=== PATIENT | male | born 1955 | race Caucasian/White ===

== ENCOUNTER 2018-04-14 02:36 | Inpatient (IN) ==
[2018-04-14] MEDS ORDERED: *HR* Ketamine 500 MG/5 ML MDV IVP ONE (02:44)
[2018-04-14] MEDS ORDERED: *HR* LORazepam 2 MG/ML VIAL IVP ONE ×2 (02:57→14:53)
--- NOTE | 2018-04-14 03:02 | Emergency Department Note ---
Disposition Clinical Impression: Trachea displaced Altered mental status Qualifiers: Altered mental status type: unspecified Qualified Code(s): R41.82 - Altered mental status, unspecified Acute respiratory failure Qualifiers: Respiratory failure complication: hypoxia Qualified Code(s): J96.01 - Acute respiratory failure with hypoxia Sepsis Qualifiers: Sepsis type: sepsis due to unspecified organism Qualified Code(s): A41.9 - Sepsis, unspecified organism Disposition: Admitted As Inpatient Condition: Fair Time of Disposition: 06:32 SOB HPI - General Chief Complaint: ED Shortness of Breath/Dyspnea Stated Complaint: JILL Time Seen by Provider: 04/14/18 02:37 Source: EMS, other Limitations: altered mental status Nursing Notes Reviewed: Yes Vital Signs Reviewed: Yes - History of Present Illness Patient presents to the ED via EMS and was seen and evaluated immediately upon arrival. Patient is at [facility] and is chronically trached for laryngeal cancer and has also had another extensive head and neck surgeries and is followed at [facility]. Apparently today about 15 minutes prior to arrival. The patient was up, walking towards the desk and they checked on him a few minutes later and he had pulled his trach out and was cyanotic. Initial sats from EMS were 30%. They state that [facility] had actually placed a straw in the patient's stoma and he was breathing on his own. EMS placed a shortened 6- 0 ET tube into the stoma and the patient did pink up with oxygen sats in the 90s while being bagged. Unknown any preceding events or preceding symptoms. - Related Data Previous Rx's Medication Instructions Recorded Sulfamethoxazole/Trimeth Oral 20 ml PO BID 7 Days #280 oral.susp 01/31/18 [Bactrim Susp 400-80mg/10mL] Allergies Allergy/AdvReac Type Severity Reaction Status Date / Time ampicillin [From Unasyn] Allergy See Verified 01/31/18 00:27 Comments sulbactam [From Unasyn] Allergy See Verified 01/31/18 00:27 Comments Limitations: ROS unobtainable due to patients medical condition Past Medical History - Past Medical History Source: old records reviewed Medical history: Reports: arthritis, cancer, COPD, CVA, diabetes, GERD, hyperlipidemia, hypertension Psychiatric history: Reports: anxiety, depression - Social History Smoking Status: Former smoker Smokeless Tobacco Status: No Alcohol use: Reports: none Drug use: Reports: none Physical Exam - General Limitations: altered mental status General appearance: obtunded, in distress - Eye Eye exam: Present: PERRL - ENT ENT exam: other (6-[address] with some bloody secretions, the tracheostomy stoma is edematous and erythematous, apparent cuff leak) - Chest Chest inspection: Present: other (Extensive scar tissue to the chest wall) - Respiratory Respiratory exam: Present: respiratory distress, other (Diminished breath sounds bilaterally). Absent: normal lung sounds bilaterally - Cardiovascular Cardiovascular exam: Present: tachycardia - Abdominal Exam Abdominal exam: Present: soft - Neurological Exam Neurological exam: Present: other (Patient's obtunded, not following commands). Absent: alert, oriented X3 - Skin Skin exam: Present: warm, dry, intact, normal color Course Course Narrative: patient presenting after pulling trach. Was obtunded. We did give him 10 mg of etomidate for initial sedation, which did facilitate placement of a trach. We had good color change and breath sounds bilaterally. The stoma was patent with no bleeding. We subsequently gave him 4 mg of Ativan and we will order a Precedex drip for sedation. His mental status prior to arrival was unknown but reportedly was walking up to the nurse's station. Upon arrival here, he was not following commands, eyes were rolling in the back of his head and was not making any purposeful movements but was moving all extremities. We will check labs, chest x-ray, CT head. We will place on full ventilatory support Vital Signs Temperature 0 F L 04/14/18 02:39 Pulse Rate 144 04/14/18 02:39 Respiratory Rate 32 04/14/18 02:39 Blood Pressure 189/104 04/14/18 02:39 O2 Sat by Pulse Oximetry 91 04/14/18 02:39 Temperature 0 F L 04/14/18 02:39 Pulse Rate 65 04/14/18 06:29 Respiratory Rate 18 04/14/18 06:03 Blood Pressure 96/67 04/14/18 06:29 O2 Sat by Pulse Oximetry 98 04/14/18 06:29 Oxygen Delivery Oxygen Delivery Ventilator Shortness of Breath/Dyspnea - Medical Records Medical records reviewed: Yes I reviewed the patient's medical records. - Lab Data Lab results reviewed: Yes I reviewed the patient's lab results. Result diagrams: 04/14/18 02:43 04/14/18 02:43 Lab Results 04/14/18 04/14/18 04/14/18 Range/Units 02:43 02:43 02:43 WBC 16.6 H (4.3-11.1) K/mcL RBC 4.00 L (4.19-5.50) M/mcL Hgb 12.5 L (12.9-16.9) g/dL Hct 37.9 (37.5-50.1) % MCV 94.8 (83.0-100.0) fL MCH 31.3 (28.0-33.3) pg MCHC 33.0 (31.6-35.5) g/dL RDW 13.6 (11.5-14.5) % Plt Count 403 H (140-400) K/mcL MPV 9.6 (9.4-12.4) fL Immature Gran % 0.4 (0-4) % Seg Neutrophils % 23.9 % Lymphocytes % 59.8 % Monocytes % 9.5 % Eosinophils % 5.7 % Basophils % 0.7 % Neutrophils # 4.0 (1.6-8.9) K/mcL Lymphocytes # 9.9 H (0.6-4.6) K/mcL Monocytes # 1.6 H (0.0-1.3) K/mcL Eosinophils # 1.0 H (0.0-0.6) K/mcL Basophils # 0.1 (0.0-0.2) K/mcL Reactive Lymphocytes Present A (Not Present) Platelet Estimate Normal (Normal) PT 11.5 (9.4-12.1) Seconds INR 1.1 APTT 34.7 (26.0-36.0) Seconds VBG pH (7.32-7.42) pH Units VBG pCO2 (41-51) mmHg VBG pO2 (25-50) mmHg VBG HCO3 (21-27) mEq/L Sodium 137 (136-145) mEq/L Potassium 4.2 (3.5-5.1) mEq/L Chloride 102 (98-107) mEq/L Carbon Dioxide 21 L (23-29) mEq/L BUN 17 (8-23) mg/dL Creatinine 1.06 (0.70-1.30) mg/dL Est GFR ( Amer) > 60 (> 60) Est GFR (Non-Af Amer) > 60 (> 60) BUN/Creatinine Ratio 16 (6-26) Glucose 224 H (70-105) mg/dL Calculated Osmolality 293 (280-300) Lactic Acid (0.5-2.2) mmol/L Calcium 9.8 (8.6-10.3) mg/dL Troponin I < 0.03 (< 0.04) ng/mL B-Natriuretic Peptide (Less than 100) pg/mL 04/14/18 04/14/18 04/14/18 Range/Units 02:43 02:43 03:11 WBC (4.3-11.1) K/mcL RBC (4.19-5.50) M/mcL Hgb (12.9-16.9) g/dL Hct (37.5-50.1) % MCV (83.0-100.0) fL MCH (28.0-33.3) pg MCHC (31.6-35.5) g/dL RDW (11.5-14.5) % Plt Count (140-400) K/mcL MPV (9.4-12.4) fL Immature Gran % (0-4) % Seg Neutrophils % % Lymphocytes % % Monocytes % % Eosinophils % % Basophils % % Neutrophils # (1.6-8.9) K/mcL Lymphocytes # (0.6-4.6) K/mcL Monocytes # (0.0-1.3) K/mcL Eosinophils # (0.0-0.6) K/mcL Basophils # (0.0-0.2) K/mcL Reactive Lymphocytes (Not Present) Platelet Estimate (Normal) PT (9.4-12.1) Seconds INR APTT (26.0-36.0) Seconds VBG pH 7.29 L (7.32-7.42) pH Units VBG pCO2 49 (41-51) mmHg VBG pO2 109 H (25-50) mmHg VBG HCO3 23 (21-27) mEq/L Sodium (136-145) mEq/L Potassium (3.5-5.1) mEq/L Chloride (98-107) mEq/L Carbon Dioxide (23-29) mEq/L BUN (8-23) mg/dL Creatinine (0.70-1.30) mg/dL Est GFR ( Amer) (> 60) Est GFR (Non-Af Amer) (> 60) BUN/Creatinine Ratio (6-26) Glucose (70-105) mg/dL Calculated Osmolality (280-300) Lactic Acid 5.2 H* (0.5-2.2) mmol/L Calcium (8.6-10.3) mg/dL Troponin I (< 0.04) ng/mL B-Natriuretic Peptide 43 (Less than 100) pg/mL 04/14/18 Range/Units 05:28 WBC (4.3-11.1) K/mcL RBC (4.19-5.50) M/mcL Hgb (12.9-16.9) g/dL Hct (37.5-50.1) % MCV (83.0-100.0) fL MCH (28.0-33.3) pg MCHC (31.6-35.5) g/dL RDW (11.5-14.5) % Plt Count (140-400) K/mcL MPV (9.4-12.4) fL Immature Gran % (0-4) % Seg Neutrophils % % Lymphocytes % % Monocytes % % Eosinophils % % Basophils % % Neutrophils # (1.6-8.9) K/mcL Lymphocytes # (0.6-4.6) K/mcL Monocytes # (0.0-1.3) K/mcL Eosinophils # (0.0-0.6) K/mcL Basophils # (0.0-0.2) K/mcL Reactive Lymphocytes (Not Present) Platelet Estimate (Normal) PT (9.4-12.1) Seconds INR APTT (26.0-36.0) Seconds VBG pH (7.32-7.42) pH Units VBG pCO2 (41-51) mmHg VBG pO2 (25-50) mmHg VBG HCO3 (21-27) mEq/L Sodium (136-145) mEq/L Potassium (3.5-5.1) mEq/L Chloride (98-107) mEq/L Carbon Dioxide (23-29) mEq/L BUN (8-23) mg/dL Creatinine (0.70-1.30) mg/dL Est GFR ( Amer) (> 60) Est GFR (Non-Af Amer) (> 60) BUN/Creatinine Ratio (6-26) Glucose (70-105) mg/dL Calculated Osmolality (280-300) Lactic Acid 2.5 H (0.5-2.2) mmol/L Calcium (8.6-10.3) mg/dL Troponin I (< 0.04) ng/mL B-Natriuretic Peptide (Less than 100) pg/mL - Radiology Data Radiology results reviewed: Yes I reviewed the patient's radiology results. - EKG Data EKG attestation: Yes I reviewed and interpreted this EKG. EKG results narrative: Sinus tach, rate 102, KS interval 137, QRS 97, QTC 433, normal axis, no acute ischemic changes Attestation Statement - Attestation Attestation: I examined this patient and my medical decision-making was reviewed with the Resident Physician. I agree with the documented findings, disposition and treatment plan as described except to the extent set forth below.
[2018-04-14 03:12] LABS: Basophils # 0.1 K/mcL (0.0-0.2); Basophils % 0.7 %; Eosinophils % 5.7 %; Hematocrit 37.9 % (37.5-50.1); Hemoglobin 12.5 g/dL (12.9-16.9); Immature Granulocytes % 0.4 % (0-4); Lymphocytes # 9.9 K/mcL (0.6-4.6); Lymphocytes % 59.8 %; Mean Corpuscular Hemoglobin 31.3 pg (28.0-33.3); Mean Corpuscular Volume 94.8 fL (83.0-100.0); Mean Platelet Volume 9.6 fL (9.4-12.4); Monocytes # 1.6 K/mcL (0.0-1.3); Monocytes % 9.5 %; Platelet Count 403 K/mcL (140-400); Red Cell Distribution Width 13.6 % (11.5-14.5); Segmented Neutrophils % 23.9 %
[2018-04-14 03:14] LABS: VBG HCO3 23 mEq/L (21-27); VBG PCO2 49 mmHg (41-51); VBG PH 7.29 pH Units (7.32-7.42); VBG PO2 109 mmHg (25-50)
[2018-04-14 03:18] LABS: INR 1.1; Prothrombin Time 11.5 Seconds (9.4-12.1)
[2018-04-14 03:20] LABS: Troponin I < 0.03 ng/mL (< 0.04)
[2018-04-14 03:21] LABS: Activated Partial Thrombo Time 34.7 Seconds (26.0-36.0)
[2018-04-14 03:24] LABS: BUN/Creatinine Ratio 16 (6-26); Blood Urea Nitrogen 17 mg/dL (8-23); Calcium 9.8 mg/dL (8.6-10.3); Carbon Dioxide 21 mEq/L (23-29); Chloride 102 mEq/L (98-107); Glucose 224 mg/dL (70-105); Osmolality,Calculated 293 (280-300); Potassium 4.2 mEq/L (3.5-5.1); Sodium 137 mEq/L (136-145); eGFR For African Americans > 60 (> 60); eGFR For Non-African Americans > 60 (> 60)
[2018-04-14 03:43] LABS: Platelet Estimate Normal (Normal); Reactive Lymphocytes Present (Not Present)
[2018-04-14] MEDS: 0.9 % Sodium Chloride 1,000 ML IVC SCH ×4 (03:48→23:56)
[2018-04-14] MEDS: Dexmedetomidine HCl 200 MCG/50 ML MLS IVC SCH ×2 (03:48→13:06)
[2018-04-14] MEDS ORDERED: Levofloxacin 750 MG/150 ML 750 MG/150 ML BAG IVPB ONE (04:42)
--- NOTE | 2018-04-14 06:40 | Emergency Department Note ---
Disposition Clinical Impression: Trachea displaced Altered mental status Qualifiers: Altered mental status type: unspecified Qualified Code(s): R41.82 - Altered mental status, unspecified Acute respiratory failure Qualifiers: Respiratory failure complication: hypoxia Qualified Code(s): J96.01 - Acute respiratory failure with hypoxia Sepsis Qualifiers: Sepsis type: sepsis due to unspecified organism Qualified Code(s): A41.9 - Sepsis, unspecified organism Disposition: Admitted As Inpatient Condition: Fair Referrals: NONE,PCP [Primary Care Provider] - Forms: ED Satisfaction Letter General Adult HPI - General Chief complaint: ED Shortness of Breath/Dyspnea Stated complaint: JILL Time Seen by Provider: 04/14/18 02:37 Source: EMS, other Limitations: altered mental status - History of Present Illness Pain Scale: 0 - Related Data Previous Rx's Medication Instructions Recorded Sulfamethoxazole/Trimeth Oral 20 ml PO BID 7 Days #280 oral.susp 01/31/18 [Bactrim Susp 400-80mg/10mL] Allergies Allergy/AdvReac Type Severity Reaction Status Date / Time ampicillin [From Unasyn] Allergy See Verified 01/31/18 00:27 Comments sulbactam [From Unasyn] Allergy See Verified 01/31/18 00:27 Comments Past Medical History - Past Medical History Medical history: Reports: arthritis, cancer, COPD, CVA, diabetes, GERD, hyperlipidemia, hypertension Psychiatric history: Reports: anxiety, depression - Social History Smoking Status: Former smoker Smokeless Tobacco Status: No Alcohol use: Reports: none Drug use: Reports: none Physical Exam - General Limitations: altered mental status General appearance: obtunded, in distress Course Vital Signs Temperature 0 F L 04/14/18 02:39 Pulse Rate 144 04/14/18 02:39 Respiratory Rate 32 04/14/18 02:39 Blood Pressure 189/104 04/14/18 02:39 O2 Sat by Pulse Oximetry 91 04/14/18 02:39 Temperature 0 F L 04/14/18 02:39 Pulse Rate 65 04/14/18 06:29 Respiratory Rate 18 04/14/18 06:03 Blood Pressure 96/67 04/14/18 06:29 O2 Sat by Pulse Oximetry 98 04/14/18 06:29 Oxygen Delivery Oxygen Delivery Ventilator Medical Decision Making - Lab Data Result diagrams: 04/14/18 02:43 04/14/18 02:43 Lab Results 04/14/18 04/14/18 04/14/18 Range/Units 02:43 02:43 02:43 WBC 16.6 H (4.3-11.1) K/mcL RBC 4.00 L (4.19-5.50) M/mcL Hgb 12.5 L (12.9-16.9) g/dL Hct 37.9 (37.5-50.1) % MCV 94.8 (83.0-100.0) fL MCH 31.3 (28.0-33.3) pg MCHC 33.0 (31.6-35.5) g/dL RDW 13.6 (11.5-14.5) % Plt Count 403 H (140-400) K/mcL MPV 9.6 (9.4-12.4) fL Immature Gran % 0.4 (0-4) % Seg Neutrophils % 23.9 % Lymphocytes % 59.8 % Monocytes % 9.5 % Eosinophils % 5.7 % Basophils % 0.7 % Neutrophils # 4.0 (1.6-8.9) K/mcL Lymphocytes # 9.9 H (0.6-4.6) K/mcL Monocytes # 1.6 H (0.0-1.3) K/mcL Eosinophils # 1.0 H (0.0-0.6) K/mcL Basophils # 0.1 (0.0-0.2) K/mcL Reactive Lymphocytes Present A (Not Present) Platelet Estimate Normal (Normal) PT 11.5 (9.4-12.1) Seconds INR 1.1 APTT 34.7 (26.0-36.0) Seconds VBG pH (7.32-7.42) pH Units VBG pCO2 (41-51) mmHg VBG pO2 (25-50) mmHg VBG HCO3 (21-27) mEq/L Sodium 137 (136-145) mEq/L Potassium 4.2 (3.5-5.1) mEq/L Chloride 102 (98-107) mEq/L Carbon Dioxide 21 L (23-29) mEq/L BUN 17 (8-23) mg/dL Creatinine 1.06 (0.70-1.30) mg/dL Est GFR ( Amer) > 60 (> 60) Est GFR (Non-Af Amer) > 60 (> 60) BUN/Creatinine Ratio 16 (6-26) Glucose 224 H (70-105) mg/dL Calculated Osmolality 293 (280-300) Lactic Acid (0.5-2.2) mmol/L Calcium 9.8 (8.6-10.3) mg/dL Troponin I < 0.03 (< 0.04) ng/mL B-Natriuretic Peptide (Less than 100) pg/mL 04/14/18 04/14/18 04/14/18 Range/Units 02:43 02:43 03:11 WBC (4.3-11.1) K/mcL RBC (4.19-5.50) M/mcL Hgb (12.9-16.9) g/dL Hct (37.5-50.1) % MCV (83.0-100.0) fL MCH (28.0-33.3) pg MCHC (31.6-35.5) g/dL RDW (11.5-14.5) % Plt Count (140-400) K/mcL MPV (9.4-12.4) fL Immature Gran % (0-4) % Seg Neutrophils % % Lymphocytes % % Monocytes % % Eosinophils % % Basophils % % Neutrophils # (1.6-8.9) K/mcL Lymphocytes # (0.6-4.6) K/mcL Monocytes # (0.0-1.3) K/mcL Eosinophils # (0.0-0.6) K/mcL Basophils # (0.0-0.2) K/mcL Reactive Lymphocytes (Not Present) Platelet Estimate (Normal) PT (9.4-12.1) Seconds INR APTT (26.0-36.0) Seconds VBG pH 7.29 L (7.32-7.42) pH Units VBG pCO2 49 (41-51) mmHg VBG pO2 109 H (25-50) mmHg VBG HCO3 23 (21-27) mEq/L Sodium (136-145) mEq/L Potassium (3.5-5.1) mEq/L Chloride (98-107) mEq/L Carbon Dioxide (23-29) mEq/L BUN (8-23) mg/dL Creatinine (0.70-1.30) mg/dL Est GFR ( Amer) (> 60) Est GFR (Non-Af Amer) (> 60) BUN/Creatinine Ratio (6-26) Glucose (70-105) mg/dL Calculated Osmolality (280-300) Lactic Acid 5.2 H* (0.5-2.2) mmol/L Calcium (8.6-10.3) mg/dL Troponin I (< 0.04) ng/mL B-Natriuretic Peptide 43 (Less than 100) pg/mL 04/14/18 Range/Units 05:28 WBC (4.3-11.1) K/mcL RBC (4.19-5.50) M/mcL Hgb (12.9-16.9) g/dL Hct (37.5-50.1) % MCV (83.0-100.0) fL MCH (28.0-33.3) pg MCHC (31.6-35.5) g/dL RDW (11.5-14.5) % Plt Count (140-400) K/mcL MPV (9.4-12.4) fL Immature Gran % (0-4) % Seg Neutrophils % % Lymphocytes % % Monocytes % % Eosinophils % % Basophils % % Neutrophils # (1.6-8.9) K/mcL Lymphocytes # (0.6-4.6) K/mcL Monocytes # (0.0-1.3) K/mcL Eosinophils # (0.0-0.6) K/mcL Basophils # (0.0-0.2) K/mcL Reactive Lymphocytes (Not Present) Platelet Estimate (Normal) PT (9.4-12.1) Seconds INR APTT (26.0-36.0) Seconds VBG pH (7.32-7.42) pH Units VBG pCO2 (41-51) mmHg VBG pO2 (25-50) mmHg VBG HCO3 (21-27) mEq/L Sodium (136-145) mEq/L Potassium (3.5-5.1) mEq/L Chloride (98-107) mEq/L Carbon Dioxide (23-29) mEq/L BUN (8-23) mg/dL Creatinine (0.70-1.30) mg/dL Est GFR ( Amer) (> 60) Est GFR (Non-Af Amer) (> 60) BUN/Creatinine Ratio (6-26) Glucose (70-105) mg/dL Calculated Osmolality (280-300) Lactic Acid 2.5 H (0.5-2.2) mmol/L Calcium (8.6-10.3) mg/dL Troponin I (< 0.04) ng/mL B-Natriuretic Peptide (Less than 100) pg/mL Attestation Statement - Attestation Attestation: I examined this patient and my medical decision-making was reviewed with the Resident Physician. I agree with the documented findings, disposition and treatment plan as described except to the extent set forth below. 62-year-old male brought to the ED by EMS due to hypoxia. Patient is nonverbal and unable to contribute anything to his history of present illness past medical history. He has a chronic tracheostomy and apparently pulled out in the extended-care facility. He was found quite hypoxic. Upon arrival of EMS they placed a 6 mm ET tube into the tracheostomy site and unable to effectively ventilated. Upon arrival to the ED, however, he remained unresponsive. Tracheostomy site had some dense erythema and small amount of blood around it. ET tube was effective at ventilated. Oropharynx is dry. Abdomen soft, nondistended and nontender. Lungs diminished but symmetrically clear bilaterally. Extremities warm and dry. IV was placed he was given 10 mg of etomidate providing some degree of relaxation. The ET tube was then decompressed and removed and a #6 tracheostomy was placed back in a stoma on the first attempt. This was inflated and he was ventilating well. He remained somnolent and was concerned that he may have suffered an anoxic injury. CT of the head was unremarkable for any acute process. Old encephalomalacia is noted on the right side from prior stroke. Lactate was elevated at 5. He is placed on a Precedex drip to maintain sedation and will be admitted to the hospital for further evaluation.
[2018-04-14] MEDS ORDERED: 0.9 % Sodium Chloride 1,000 ML ONE (09:04)
[2018-04-14] MEDS ORDERED: 0.9 % Sodium Chloride 1,000 ML IVC ONE (09:12)
[2018-04-14] MEDS ORDERED: Naloxone 0.4 MG/ML INJ IVP PRN (09:14)
[2018-04-14] MEDS ORDERED: Ondansetron 4 MG/2 ML VIAL IVP PRN (09:14)
[2018-04-14] MEDS ORDERED: OXYCODONE Oral CONC 10 MG/0.5 ML ORAL.SYG SL PRN (09:14)
[2018-04-14] MEDS ORDERED: *HR* Promethazine 25 MG/ML VIAL IVP PRN (09:14)
[2018-04-14 09:43] LABS: ABG Base Excess 1 mEq/L (-2 to 3); ABG HCO3 27 mEq/L (21-27); ABG Oxygen Saturation 99 % (95-98); ABG PCO2 44 mmHg (35-45); ABG PH 7.39 pH Units (7.32-7.45); ABG PO2 145 mmHg (85-104); ABG TCO2 28 mEq/L (20-26); Blood Gas Modality VC; Blood Gas Respiration Rate 14; Blood Gas VT 450 cc
[2018-04-14] MEDS ORDERED: Lidocaine -MPF 1% 5 ML AMPUL INFILT ONE (10:11)
[2018-04-14] MEDS ORDERED: Aztreonam 1,000 MG in Water for inj. (sterile) 20 ML 10 ML IVP SCH (11:00)
--- NOTE | 2018-04-14 11:25 | Pulmonology Consult Note ---
<Zeferino Ortega - Last Filed: 04/14/18 13:14> Date of Encounter: 04/14/18 Time of Encounter: 10:00 Assessment and Plan (1) Severe sepsis Current Visit: Yes Status: Acute Initial lactate greater than 4. Presumable source likely in the lungs with aspiration PNA. Blood cultures ordered. Patient's on broad-spectrum antibiotics initiated from the ED. Patient's fluid resuscitated with improvement in lactate trend. Patient has bounding radial pulses suggesting good peripheral perfusion. Chest x-ray obtained in the ED shows no acute disease. Patient possibly has an element of tracheitis leading to overwhelming infectious picture. Will also obtain urinalysis. Plan -Continue with resuscitation. If the patient requires vasopressors- will likely need monitored in the intensive care setting. -Monitor map >65 -Monitor urine output. -Blood cultures x 2 -Urine culture -Sputum culture pending -Lactate cleared -Procalcitonin pending. (2) Acute respiratory failure Current Visit: Yes Status: Acute Trach dependent status post head and neck surgery from laryngeal cancer. Patient was hypoxic after trach dislodgment. Trach appears to be in good positioning without signs of active bleeding. Likely 2/2 to aspiration PNA with concern for HCAP. Patient does require some supplemental oxygen is on mechanically ventilated. Plan -Continue respiratory support. Oxygenation ventilation. -Continue broad-spectrum antibiotics -Steroid and nebs Qualifiers: Respiratory failure complication: hypoxia Qualified Code(s): J96.01 - Acute respiratory failure with hypoxia (3) Altered mental status Current Visit: Yes Status: Acute Patient is nonverbal. Unclear of the patient's baseline mentation. Head CT obtained from the ED shows aged encephalopathy. Continue to treat the infectious nature to see if the patient's mental status improves. If patient's mental status does not improve would consider an EEG. Qualifiers: Altered mental status type: unspecified Qualified Code(s): R41.82 - Altered mental status, unspecified (4) Trachea displaced Current Visit: Yes Status: Acute Replaced in the ED. Appears to be functioning. Continue to monitor. History of Present Illness Consult date: 04/14/18 Requesting physician: Yomaira Weeks Reason for consult: hypoxemia Chief complaint: Dyspnea History of present illness: 62-year-old male with a history of chronic tracheostomy for laryngeal cancer status post head neck surgery presented to the emergency department for dyspnea. It is noted the patient dislodged his tracheostomy and was cyanotic. Patient was hypoxic with a saturation of 30% per EMS. Patient is a [facility]. EMS placed a 60 ET tube in the saturation improved. Patient is nonverbal and not able to provide any additional history. Much of the history was provided via chart review. During the ED course the patient oxygenation improved following interventions. Patient was noted to have a lactic acidosis and was placed on broad-spectrum antibiotics and fluid resuscitated. Patient's nonverbal and mental status is unknown. On examination at bedside, the patient remains somnolent on mechanical ventilation. Patient has strong peripheral pulses. Patient's required some supplemental oxygenation. Patient's lactate is trending down following fluid resuscitation. Patient did have labile blood pressures early on but appeared to have responded IV fluids. Past Med Surg Social Fam HX - Past Medical History Medical history: arthritis, cancer, COPD, CVA, diabetes, GERD, hyperlipidemia, hypertension Additional medical history: Laryngeal cancer Psychiatric history: anxiety, depression - Past Surgical History Additional surgical history: laryngectomy, facial/chest taylor, trach - Social History Smoking Status: Former smoker Smokeless Tobacco Status: No Alcohol use: none Drug use: none Medications and Allergies Amlodipine Besylate 10 mg PO DAILY 04/14/18 [History] Aspirin [Lo-Dose Aspirin EC] 81 mg PO DAILY 04/14/18 [History] Citalopram Hydrobromide [Citalopram HBr] 10 mg PO DAILY 04/14/18 [History] Famotidine [Pepcid] 20 mg PO BID 04/14/18 [History] Folic Acid 1 mg PO DAILY 04/14/18 [History] Furosemide [Lasix] 40 mg PO DAILY 04/14/18 [History] Glucagon,Human Recombinant [Glucagen] 1 mg IJ ONCE PRN 04/14/18 [History] Guaifenesin [Diabetic Tussin Ex] 10 ml PO Q4H PRN 04/14/18 [History] Insulin Glargine,Hum.rec.anlog [Basaglar Kwikpen U-100] 5 unit SQ HS 04/14/18 [ History] Insulin Human Regular [HumuLIN R] 0 unit SQ TIDWM 04/14/18 [History] Lisinopril [Zestril] 20 mg PO DAILY 04/14/18 [History] Methyl Salicylate/Menthol [Salonpas Patch] 1 each TP Q12H 04/14/18 [History] Omeprazole [PriLOSEC] 40 mg PO DAILY 04/14/18 [History] OxyCODONE Immed Rel [Roxicodone 10 MG] 10 mg PO Q8H 04/14/18 [History] Sennosides [Senna] 8.6 mg PO DAILY 04/14/18 [History] Simvastatin [Zocor] 20 mg PO 1800 04/14/18 [History] Tamsulosin [Flomax] 0.4 mg PO DAILY 04/14/18 [History] 3 Allergy/AdvReac Type Severity Reaction Status Date / Time ampicillin [From Unasyn] Allergy See Verified 01/31/18 00:27 Comments sulbactam [From Unasyn] Allergy See Verified 01/31/18 00:27 Comments ROS unobtainable: due to mental status All Systems: The remainder of the systems were reviewed and are negative Physical Examination Vital Signs: Vital Signs, Last 4 Hours Pulse Resp BP Pulse Ox 04/14/18 10:30 64 14 109/83 100 04/14/18 10:15 83 14 105/61 04/14/18 10:05 81 14 101/64 General appearance: other (Appear somnolent.) Eyes: nonicteric ENT: oropharynx moist Neck: supple, other (Tracheostomy site intact without obvious bleeding.) Effort: mildly labored Auscultation: bilateral: rales (Bibasilar) Cardiovascular: regular rate and rhythm Gastrointestinal: soft, non-distended Integumentary: normal Extremities: no cyanosis Musculoskeletal: no deformities unable to assess due to mental status Ventilator Settings Ventilator Settings: Ventilator Settings, Last 8 Hours Ventilator Tidal Volume 450 Setting Ventilator Respiratory Rate 14 Setting Positive End Expiratory 5 Pressure Results - Laboratory Findings CBC and BMP: 04/14/18 02:43 04/14/18 02:43 ABG ABG pH 7.39 pH Units (7.32-7.45) 04/14/18 09:40 ABG pCO2 44 mmHg (35-45) 04/14/18 09:40 ABG pO2 145 mmHg (85-104) H 04/14/18 09:40 ABG O2 Saturation 99 % (95-98) H 04/14/18 09:40 PT/INR, D-dimer PT 11.5 Seconds (9.4-12.1) 04/14/18 02:43 Abnormal lab findings: Abnormal lab results WBC 16.6 K/mcL (4.3-11.1) H 04/14/18 02:43 RBC 4.00 M/mcL (4.19-5.50) L 04/14/18 02:43 Hgb 12.5 g/dL (12.9-16.9) L 04/14/18 02:43 Plt Count 403 K/mcL (140-400) H 04/14/18 02:43 Lymphocytes # 9.9 K/mcL (0.6-4.6) H 04/14/18 02:43 Monocytes # 1.6 K/mcL (0.0-1.3) H 04/14/18 02:43 Eosinophils # 1.0 K/mcL (0.0-0.6) H 04/14/18 02:43 Reactive Lymphocytes Present (Not Present) A 04/14/18 02:43 ABG pO2 145 mmHg (85-104) H 04/14/18 09:40 ABG Total CO2 28 mEq/L (20-26) H 04/14/18 09:40 ABG O2 Saturation 99 % (95-98) H 04/14/18 09:40 VBG pH 7.29 pH Units (7.32-7.42) L 04/14/18 03:11 VBG pO2 109 mmHg (25-50) H 04/14/18 03:11 Carbon Dioxide 21 mEq/L (23-29) L 04/14/18 02:43 Glucose 224 mg/dL (70-105) H 04/14/18 02:43 - Clinical Findings Intake & Output: Intake & Output 04/13/18 04/14/18 04/14/18 23:59 07:59 15:59 Intake Total 1000 / 1000 Balance 1000 / 550 Consult Discharge Plan - Plan Referrals: NONE,PCP [Primary Care Provider] - <Kanu Sahni - Last Filed: 04/14/18 21:28> Date of Encounter: 04/14/18 All Systems: The remainder of the systems were reviewed and are negative Physical Examination Vital Signs: Vital Signs, Last 4 Hours Temp Pulse Resp BP Pulse Ox 04/14/18 20:02 18 98 04/14/18 19:30 98.8 F 94 16 131/67 97 Results - Laboratory Findings CBC and BMP: 04/14/18 02:43 04/14/18 02:43 ABG ABG pH 7.39 pH Units (7.32-7.45) 04/14/18 09:40 ABG pCO2 44 mmHg (35-45) 04/14/18 09:40 ABG pO2 145 mmHg (85-104) H 04/14/18 09:40 ABG O2 Saturation 99 % (95-98) H 04/14/18 09:40 PT/INR, D-dimer PT 11.5 Seconds (9.4-12.1) 04/14/18 02:43 Abnormal lab findings: Abnormal lab results WBC 16.6 K/mcL (4.3-11.1) H 04/14/18 02:43 RBC 4.00 M/mcL (4.19-5.50) L 04/14/18 02:43 Hgb 12.5 g/dL (12.9-16.9) L 04/14/18 02:43 Plt Count 403 K/mcL (140-400) H 04/14/18 02:43 Lymphocytes # 9.9 K/mcL (0.6-4.6) H 04/14/18 02:43 Monocytes # 1.6 K/mcL (0.0-1.3) H 04/14/18 02:43 Eosinophils # 1.0 K/mcL (0.0-0.6) H 04/14/18 02:43 Reactive Lymphocytes Present (Not Present) A 04/14/18 02:43 ABG pO2 145 mmHg (85-104) H 04/14/18 09:40 ABG Total CO2 28 mEq/L (20-26) H 04/14/18 09:40 ABG O2 Saturation 99 % (95-98) H 04/14/18 09:40 VBG pH 7.29 pH Units (7.32-7.42) L 04/14/18 03:11 VBG pO2 109 mmHg (25-50) H 04/14/18 03:11 Carbon Dioxide 21 mEq/L (23-29) L 04/14/18 02:43 Glucose 224 mg/dL (70-105) H 04/14/18 02:43 POC Glucose 145 mg/dL (70-99) H 04/14/18 16:55 Troponin I 0.07 ng/mL (< 0.04) H* 04/14/18 10:00 Ur Specific [place] 1.026 (1.010-1.025) H 04/14/18 11:50 Urine Blood Moderate (Negative) H 04/14/18 11:50 Urine Microscopic RBC 30-50 per hpf (0-3) H 04/14/18 11:50 Ur Squamous Epith Cells Many per lpf (None-Few) H 04/14/18 11:50 - Microbiology Findings Microbiology Findings: Microbiology, Last 48 Hours 04/14/18 13:18 Sputum Culture - Final Sputum 04/14/18 11:50 Legionella Antigen - Final Urine,Clean Catch Streptococcus pneumoniae Antigen (M - Final - Clinical Findings Intake & Output: Intake & Output 04/14/18 04/14/18 04/14/18 07:59 15:59 23:59 Intake Total 1110 / 1110 Output Total 820 / 820 Balance 1110 / 660 -820 / -820 - Attending Attestation I saw and evaluated this patient and my medical decision-making was reviewed with the Resident Physician. I agree with the documented findings, disposition and treatment plan as described except to the extent set forth below. We independently had [id number] contact with the patient Patient seen and examined at bedside Labs, radiology, chart personally reviewed. Management was reviewed during multidisciplinary critical care rounds. 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 CT head showed no acute process Pulm: Patient has chronic respiratory failure trach dependent got tracheostomy post laryngeal cancer , CXR didnt show any acute process has accpetable oxygenation and ventilation will liberate from Vent will do CPAP trial will put him on trach collar . Patient has tracheostomy tube dislodged developed acute hypoxia followed by loss of consciousness and seizure like activity . Cards: Patient was initially was hypotensive with increase lactate responded well to fluids lactate corrected most likely combination of volume depletion and seizure like activity FEN-GI: Patient is NPO Renal: Labs and output reviewed ID: Patient doesnt have any active issues will do panculture for now to cover with broad spectrum antibiotics will descalate accordingly Heme/Onc:Leukocytosis Endo: Glucose Monitored Integ/MSK: Skin Care per routine ICU Nursing Protocol to prevent ulcers. Lines: All lines examined without evidence of infection : Dispo: Patient to remain in step down if hemodynamically unstable after volume resuscitation CODE:Full Code
[2018-04-14] MEDS: Ipratropium/Albuterol Neb 3 ML IH SCH ×3 (11:29→20:01)
[2018-04-14 11:32] LABS: Adenovirus Not Detected (Not Detect); Bordetella Pertussis Not Detected (Not Detect); Chlamydophila pneumoniae Not Detected (Not Detect); Coronavirus 229E Not Detected (Not Detect); Coronavirus HKU1 Not Detected (Not Detect); Coronavirus NL63 Not Detected (Not Detect); Coronavirus OC43 Not Detected (Not Detect); Human Metapneumovirus Not Detected (Not Detect); Human Rhinovirus/Enterovirus Not Detected (Not Detect); Influenza A Subtype 2009 H1 Not Detected (Not Detect); Influenza A Untypeable Not Detected (Not Detect); Influenza B Not Detected (Not Detect); Mycoplasma pneumoniae Not Detected (Not Detect); Parainfluenza Virus 1 Not Detected (Not Detect); Parainfluenza Virus 2 Not Detected (Not Detect); Parainfluenza Virus 3 Not Detected (Not Detect); Parainfluenza Virus 4 Not Detected (Not Detect); Respiratory Syncytial Virus Not Detected (Not Detect)
[2018-04-14 12:03] LABS: Bilirubin,Urine Negative (Negative); Blood,Urine Moderate (Negative); Clarity,Urine Clear (Clear); Color,Urine Yellow (Yellow); Glucose,Urine (UA) Normal (Normal); Ketones,Urine Negative (Negative); Leukocyte Esterase,Urine Negative (Negative); Nitrite,Urine Negative (Negative); Protein,Urine Trace mg/dL (Neg-Trace); Specific Gravity,Urine 1.026 (1.010-1.025); Urobilinogen,Urine Normal (Normal)
[2018-04-14 12:05] LABS: Bacteria,Urine None Seen per hpf (None-Few); RBC,Urine 30-50 per hpf (0-3); Squamous Epithelial Cell,Urine Many per lpf (None-Few); WBC,Urine 0-3 per hpf (0-3)
--- NOTE | 2018-04-14 12:38 | Internal Med History&Physical ---
Date of Encounter: 04/14/18 Time of Encounter: 09:00 Internal Medicine - H&P: HPI Chief complaint: Shortness of breath Admitted From: Emergency Dept Plans for Post Hospital Care: Transfer [facility] History of present illness: Mr. Patricio is a 62-year-old male with a history of COPD, Chronic hypoxic resp failure, CVA, GERD, HTN,HLD who has chronic tracheostomy for laryngeal cancer status post head neck surgery was brought into ER from [facility] when pt found to be in unresponsive and respiratory failure after his trache got dislodged. As per [facility] staff / EMS report , he was hypoxic with a saturation of 30% and cyanotic. When started sucitioning they got a ?? grape / Food particle out. In the ER they replaced his trache and placed him on mechanical ventilation. Now pt is still sleepy , however arousable. Looks confused and disoriented. When I saw him in the 2N at bed side, his BP was running low in 70's with MAP @58. Pt was not able to provide me any history, all the information i have here is from ER records. Past Med Surg Social Fam HX - Past Medical History Medical history: arthritis, cancer, COPD, CVA, diabetes, GERD, hyperlipidemia, hypertension Additional medical history: Laryngeal cancer Psychiatric history: anxiety, depression - Past Surgical History Additional surgical history: laryngectomy, facial/chest taylor, trach - Social History Smoking Status: Former smoker Smokeless Tobacco Status: No Alcohol use: none Drug use: none - Additional Family History Additional family history: Unable to review family histoy since pt is confused Internal Medicine - H&P: Meds Amlodipine Besylate 10 mg PO DAILY 04/14/18 [History] Aspirin [Lo-Dose Aspirin EC] 81 mg PO DAILY 04/14/18 [History] Citalopram Hydrobromide [Citalopram HBr] 10 mg PO DAILY 04/14/18 [History] Famotidine [Pepcid] 20 mg PO BID 04/14/18 [History] Folic Acid 1 mg PO DAILY 04/14/18 [History] Furosemide [Lasix] 40 mg PO DAILY 04/14/18 [History] Glucagon,Human Recombinant [Glucagen] 1 mg IJ ONCE PRN 04/14/18 [History] Guaifenesin [Diabetic Tussin Ex] 10 ml PO Q4H PRN 04/14/18 [History] Insulin Glargine,Hum.rec.anlog [Basaglar Kwikpen U-100] 5 unit SQ HS 04/14/18 [ History] Insulin Human Regular [HumuLIN R] 0 unit SQ TIDWM 04/14/18 [History] Lisinopril [Zestril] 20 mg PO DAILY 04/14/18 [History] Methyl Salicylate/Menthol [Salonpas Patch] 1 each TP Q12H 04/14/18 [History] Omeprazole [PriLOSEC] 40 mg PO DAILY 04/14/18 [History] OxyCODONE Immed Rel [Roxicodone 10 MG] 10 mg PO Q8H 04/14/18 [History] Sennosides [Senna] 8.6 mg PO DAILY 04/14/18 [History] Simvastatin [Zocor] 20 mg PO 1800 04/14/18 [History] Tamsulosin [Flomax] 0.4 mg PO DAILY 04/14/18 [History] 3 Allergy/AdvReac Type Severity Reaction Status Date / Time ampicillin [From Unasyn] Allergy See Verified 01/31/18 00:27 Comments sulbactam [From Unasyn] Allergy See Verified 01/31/18 00:27 Comments All Systems PM: A 10-system review of systems was performed and is negative for pertinent findings except as documented above in the HPI. Review of systems: All the systems are reviewed everything is benign except the systems and symptoms I mentioned in the history of present illness - Constitutional Vitals: Temp Pulse Resp BP Pulse Ox 96.8 F L 62 14 111/75 100 04/14/18 11:34 04/14/18 11:34 04/14/18 11:34 04/14/18 11:34 04/14/18 11:34 General appearance: Present: A&O X 0, cooperative, severe distress. Absent: answers questions appropriately - Head Head exam: Present: atraumatic, normal inspection - Neck Additional comments: trache+ - Respiratory Respiratory exam: Present: decreased breath sounds, rales, respiratory distress , rhonchi, wheezes (severe) - Cardiovascular Cardiovascular exam: Present: RRR, +S1, +S2. Absent: tachycardia - GI/Abdominal GI/Abdominal exam: Present: normal bowel sounds, soft. Absent: rebound, rigid, tenderness - Extremities Exam Extremities exam: Absent: calf tenderness, pedal edema, tenderness - Back Exam Back exam: Absent: CVA tenderness (L), CVA tenderness (R) - Neurological Exam Neurological exam: Present: altered - Psychiatric Psychiatric exam: Present: depressed - Skin Skin exam: Absent: rash Internal Med - H&P Results - Labs CBC & Chem 7: 04/14/18 02:43 04/14/18 02:43 Labs: Urine 04/14/18 Range/Units 11:50 Urine Color Yellow (Yellow) Urine Clarity Clear (Clear) Urine pH 7.0 (5.0-8.0) pH Units Ur Specific [place] 1.026 H (1.010-1.025) Urine Protein Trace (Neg-Trace) mg/dL Urine Glucose (UA) Normal (Normal) mg/dL - ABG Interpretation ABG results: 04/14/18 09:40 ABG pH 7.39 ABG pCO2 44 ABG pO2 145 H ABG HCO3 27 ABG Total CO2 28 H ABG O2 Saturation 99 H ABG Base Excess 1 - Impressions ITS Impressions Chest X-Ray 04/14/18 09:22 IMPRESSION: Stable exam from earlier today. No new acute cardiopulmonary findings. D/ / Kelli Escamilla MD / Kelli Escamilla MD Interpreting Provider: Kelli Escamilla MD - Assessment and plan (1) Severe sepsis Current Visit: Yes Status: Acute Assessment and plan: He does meet sepsis criteria with the tachycardia, lactic acidosis, elevated WBC and source of inf as PNA cont broad spec abx (2) Shock Current Visit: Yes Status: Acute Assessment and plan: Due to sepsis cont IV hydration Gave him NS 1 lit bolus + maintenance fluid @ 125 cc/hr Goal to keep MAP >55 (3) Pneumonia Current Visit: Yes Status: Acute Assessment and plan: Mostly aspiration pneumonia however since his [facility]p concerning for HCAP so will treat them with the broad-spectrum antibiotic Vanco + Aztreonam ( pt is allergic to PCN ) + Levaquin ( atypical coverage ) + Flagyl ( Anaerobic coverage ) Blood cx, sputum cx sent check strep PNA, Legionella and Resp viral panel Spent 60 minutes critical care time on this patient Qualifiers: Pneumonia type: aspiration pneumonia Aspiration pneumonia type: due to gastric secretions Laterality: unspecified laterality Qualified Code(s): J69.0 - Pneumonitis due to inhalation of food and vomit (4) Acute and chronic respiratory failure with hypoxia Current Visit: Yes Status: Acute Assessment and plan: Due to HCAP Mostly he does have aspiration PNA cont empirical abx Cont mechanical ventilation for now Pulmonary consulted for further care he does have severe pulmonary secretions mostly due to pneumonia continue suctioning continue Duoneb Q4hr as schedule Reviewed stat ABG results - Ph 7.39, PCo2 44, Po2 -145 (5) COPD with acute exacerbation Current Visit: Yes Status: Acute Assessment and plan: Cont Duoneb Q4hr Started him on high dose IV steroids Cont on mechanical ventilation for now (6) Acute delirium Current Visit: Yes Status: Acute Assessment and plan: Due to toxic encephalopathy with severe spesis cont close monitoring continue symptomatic and supportive care (7) Trachea displaced Current Visit: Yes Status: Acute - Time Spent With Patient Total time spent is greater than 50% in coordination of care (as documented) at patient's floor/unit and/or counseling patient:
[2018-04-14] MEDS ORDERED: D5% in Water 1,000 ML IVC PRN (12:58)
[2018-04-14] MEDS ORDERED: *HR* Dextrose 50 % in Water (Syg) 50 ML SYRINGE IVP PRN (12:58)
[2018-04-14] MEDS ORDERED: Dextrose Gel 15 GM/37.5 ML TUBE PO PRN ×2 (12:58)
[2018-04-14] MEDS: MetroNIDAZOLE 500 MG/100 ML 500 MG/100 ML BAG IVPB SCH ×2 (12:59→20:09)
[2018-04-14] MEDS: Cefepime HCl 1,000 MG in Water for inj. (sterile) 20 ML 10 ML IVP SCH ×2 (12:59→20:42)
[2018-04-14] MEDS: MethylPREDNISolone 40 MG/ML VIAL IVP SCH ×3 (13:06→23:55)
--- NOTE | 2018-04-14 14:40 | Electrocardiograph Report ---
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
[2018-04-14] MEDS ORDERED: *HR* Etomidate 20 MG/10 ML AMPUL IVP ONE (14:53)
[2018-04-14] MEDS: Insulin LISPRO 300 UNITS/3 ML VIAL SQ SCH (17:23)
[2018-04-14] MEDS ORDERED: Perflutren Lipid Microsphere 1.3 ML in 0.9 % Sodium Chloride 8.7 ML IVP ONE (21:30)
[2018-04-14] MEDS ORDERED: Perflutren Lipid Microsphere 2 ML VIAL ONE (21:35)
[2018-04-15] MEDS: Ipratropium/Albuterol Neb 3 ML IH SCH ×6 (00:05→20:23)
[2018-04-15] MEDS: Insulin LISPRO 300 UNITS/3 ML VIAL SQ SCH ×4 (00:15→16:48)
[2018-04-15 04:04] LABS: Basophils % 0.1 %; Hematocrit 31.5 % (37.5-50.1); Immature Granulocytes % 0.5 % (0-4); Lymphocytes # 1.6 K/mcL (0.6-4.6); Lymphocytes % 11.5 %; Mean Corpuscular HGB Conc 33.3 g/dL (31.6-35.5); Mean Corpuscular Hemoglobin 31.6 pg (28.0-33.3); Mean Corpuscular Volume 94.9 fL (83.0-100.0); Mean Platelet Volume 9.8 fL (9.4-12.4); Monocytes # 0.2 K/mcL (0.0-1.3); Monocytes % 1.3 %; Neutrophils # 12.1 K/mcL (1.6-8.9); Platelet Count 315 K/mcL (140-400); Red Blood Count 3.32 M/mcL (4.19-5.50); Red Cell Distribution Width 13.6 % (11.5-14.5); Segmented Neutrophils % 86.6 %
[2018-04-15 04:05] LABS: Hemoglobin 10.5 g/dL (12.9-16.9)
[2018-04-15 04:14] LABS: Alanine Aminotransferase 11 Units/L (7-52); Albumin 3.5 g/dL (3.5-5.7); Albumin/Globulin Ratio 1.1 (1.1-2.2); Alkaline Phosphatase 75 Units/L (34-104); Aspartate Amino Transferase 14 Units/L (13-39); BUN/Creatinine Ratio 21 (6-26); Bilirubin,Total 0.2 mg/dL (0.3-1.0); Blood Urea Nitrogen 14 mg/dL (8-23); Calcium 9.4 mg/dL (8.6-10.3); Carbon Dioxide 24 mEq/L (23-29); Chloride 107 mEq/L (98-107); Chol/HDL Ratio 2.7 (0-4.9); Cholesterol 117 mg/dL (< 200); Globulin 3.2 g/dL (2.4-3.5); Glucose 168 mg/dL (70-105); HDL Cholesterol 43 mg/dL (40-59); LDL Cholesterol,Calculated 65 mg/dL (0-99); Magnesium 1.8 mg/dL (1.6-2.6); Osmolality,Calculated 286 (280-300); Phosphorous 2.9 mg/dL (2.7-4.5); Potassium 4.1 mEq/L (3.5-5.1); Sodium 136 mEq/L (136-145); Total Protein 6.7 g/dL (6.4-8.9); Triglycerides 45 mg/dL (< 150); eGFR For African Americans > 60 (> 60); eGFR For Non-African Americans > 60 (> 60)
[2018-04-15] MEDS: MetroNIDAZOLE 500 MG/100 ML 500 MG/100 ML BAG IVPB SCH ×2 (04:43→12:32)
[2018-04-15] MEDS: Cefepime HCl 1,000 MG in Water for inj. (sterile) 20 ML 10 ML IVP SCH ×3 (04:48→22:40)
[2018-04-15] MEDS: MethylPREDNISolone 40 MG/ML VIAL IVP SCH ×3 (05:21→16:57)
[2018-04-15] MEDS: *HR* Enoxaparin 40 MG/0.4 ML SYRINGE SQ SCH (05:21)
[2018-04-15] MEDS ORDERED: Isovue-370 500 ML INFUS..BTL IV ONE (07:29)
[2018-04-15] MEDS ORDERED: Aminoglycoside Consult 1 EACH MC ONE (09:15)
[2018-04-15] MEDS: Levofloxacin 750 MG/150 ML 750 MG/150 ML BAG IVPB SCH (09:21)
--- NOTE | 2018-04-15 09:48 | Pulmonology Progress Note ---
<Zeferino Ortega - Last Filed: 04/15/18 11:42> Date of Encounter: 04/15/18 Time of Encounter: 09:48 Assessment and Plan (1) Severe sepsis Current Visit: Yes Status: Resolved Patient initially presented with lactic acidosis responsive to IV fluids. Severe sepsis resolved. Initial lactate greater than 4. Presumable source likely in the lungs with aspiration PNA. Patient's on broad-spectrum antibiotics initiated from the ED. Patient has bounding radial pulses suggesting good peripheral perfusion. CTA chest suggests no PE with small subpulmonic effusion and consolidation suggesting atelectasis or infection clinically. Plan -Monitor map >65 -Urine output adequate -Blood cultures x 2-NGTD -Urine culture-pending -Sputum culture-Gram Positive Cocci-continue broad-spectrum antibiotics and de- escalate once appropriate. -Lactate cleared -Procalcitonin pending -Please call with any questions. (2) Acute respiratory failure Current Visit: Yes Status: Acute trach dependent status post head and neck surgery from laryngeal cancer. Patient was hypoxic after trach dislodgment. Likely 2/2 to aspiration PNA with concern for HCAP. Overall respiratory status is improving. Patient weaned to trach collar. Continue oxygen titration. Plan -Continue respiratory support. Wean down oxygenation to baseline. Acceptable oxygenation/ventilation -Continue broad-spectrum antibiotics -Steroid and nebs -Appropriate to start clear liquid diet. Qualifiers: Respiratory failure complication: hypoxia Qualified Code(s): J96.01 - Acute respiratory failure with hypoxia (3) Altered mental status Current Visit: Yes Status: Resolved Seems to be resolved. Patient is able to verbalize his needs. Qualifiers: Altered mental status type: unspecified Qualified Code(s): R41.82 - Altered mental status, unspecified (4) Trachea displaced Current Visit: Yes Status: Resolved Replaced in the ED. Appears to be functioning. Continue to monitor. Subjective Principal diagnosis: sepsis, pneumonia Interval history: seen and examined. Patient's resting comfortably. Patient was weaned from his ventilator over the past 24 hours. Patient's on trach collar. Objective PUL Vital signs: Last Vital Signs Temp 97.7 F 04/15/18 06:57 Pulse 103 04/15/18 06:57 Resp 16 04/15/18 07:33 BP 115/58 04/15/18 06:57 Pulse Ox 97 04/15/18 07:33 General appearance: no acute distress Eyes: nonicteric ENT: oropharynx moist Neck: supple, other (Functioning tracheostomy in place.) Effort: normal Auscultation: bilateral: diminished breath sounds (Diminished at the bases), rales (Scattered) Cardiovascular: regular rate and rhythm Gastrointestinal: soft, non-tender Integumentary: normal Extremities: no cyanosis, no edema Musculoskeletal: no deformities non-focal exam Results - Laboratory Findings CBC and BMP: 04/15/18 03:41 04/15/18 03:41 ABG ABG pH 7.39 pH Units (7.32-7.45) 04/14/18 09:40 ABG pCO2 44 mmHg (35-45) 04/14/18 09:40 ABG pO2 145 mmHg (85-104) H 04/14/18 09:40 ABG O2 Saturation 99 % (95-98) H 04/14/18 09:40 PT/INR, D-dimer PT 11.5 Seconds (9.4-12.1) 04/14/18 02:43 Abnormal lab findings: Abnormal lab results WBC 14.0 K/mcL (4.3-11.1) H 04/15/18 03:41 RBC 3.32 M/mcL (4.19-5.50) L 04/15/18 03:41 Hgb 10.5 g/dL (12.9-16.9) L D 04/15/18 03:41 Hct 31.5 % (37.5-50.1) L 04/15/18 03:41 Neutrophils # 12.1 K/mcL (1.6-8.9) H 04/15/18 03:41 Reactive Lymphocytes Present (Not Present) A 04/14/18 02:43 ABG pO2 145 mmHg (85-104) H 04/14/18 09:40 ABG Total CO2 28 mEq/L (20-26) H 04/14/18 09:40 ABG O2 Saturation 99 % (95-98) H 04/14/18 09:40 VBG pH 7.29 pH Units (7.32-7.42) L 04/14/18 03:11 VBG pO2 109 mmHg (25-50) H 04/14/18 03:11 Creatinine 0.68 mg/dL (0.70-1.30) L 04/15/18 03:41 Glucose 168 mg/dL (70-105) H 04/15/18 03:41 POC Glucose 142 mg/dL (70-99) H 04/15/18 05:18 Total Bilirubin 0.2 mg/dL (0.3-1.0) L 04/15/18 03:41 Troponin I 0.07 ng/mL (< 0.04) H* 04/14/18 10:00 Ur Specific [place] 1.026 (1.010-1.025) H 04/14/18 11:50 Urine Blood Moderate (Negative) H 04/14/18 11:50 Urine Microscopic RBC 30-50 per hpf (0-3) H 04/14/18 11:50 Ur Squamous Epith Cells Many per lpf (None-Few) H 04/14/18 11:50 - Microbiology Findings Microbiology Findings: Microbiology, Last 48 Hours 04/14/18 13:18 Sputum Culture - Final Sputum 04/14/18 11:50 Legionella Antigen - Final Urine,Clean Catch Streptococcus pneumoniae Antigen (M - Final - Diagnostic Findings Chest x-ray: report reviewed, image reviewed CT scan - chest: report reviewed, image reviewed - Clinical Findings Intake & Output: Intake & Output 04/14/18 04/15/18 04/15/18 23:59 07:59 15:59 Intake Total 1360 / 1360 Output Total 1270 / 1270 925 / 925 650 / 650 Balance 90 / 90 -925 / -925 -650 / -650 Weight 86 kg Consult Discharge Plan - Plan Referrals: NONE,PCP [Primary Care Provider] - <Kanu Sahni - Last Filed: 04/15/18 23:59> Date of Encounter: 04/15/18 Objective PUL Vital signs: Last Vital Signs Temp 97.8 F 04/15/18 19:14 Pulse 104 04/15/18 19:14 Resp 16 04/15/18 20:23 BP 132/80 04/15/18 19:14 Pulse Ox 98 04/15/18 20:23 Results - Laboratory Findings CBC and BMP: 04/15/18 03:41 04/15/18 03:41 ABG ABG pH 7.39 pH Units (7.32-7.45) 04/14/18 09:40 ABG pCO2 44 mmHg (35-45) 04/14/18 09:40 ABG pO2 145 mmHg (85-104) H 04/14/18 09:40 ABG O2 Saturation 99 % (95-98) H 04/14/18 09:40 PT/INR, D-dimer PT 11.5 Seconds (9.4-12.1) 04/14/18 02:43 Abnormal lab findings: Abnormal lab results WBC 14.0 K/mcL (4.3-11.1) H 04/15/18 03:41 RBC 3.32 M/mcL (4.19-5.50) L 04/15/18 03:41 Hgb 10.5 g/dL (12.9-16.9) L D 04/15/18 03:41 Hct 31.5 % (37.5-50.1) L 04/15/18 03:41 Neutrophils # 12.1 K/mcL (1.6-8.9) H 04/15/18 03:41 Reactive Lymphocytes Present (Not Present) A 04/14/18 02:43 ABG pO2 145 mmHg (85-104) H 04/14/18 09:40 ABG Total CO2 28 mEq/L (20-26) H 04/14/18 09:40 ABG O2 Saturation 99 % (95-98) H 04/14/18 09:40 VBG pH 7.29 pH Units (7.32-7.42) L 04/14/18 03:11 VBG pO2 109 mmHg (25-50) H 04/14/18 03:11 Creatinine 0.68 mg/dL (0.70-1.30) L 04/15/18 03:41 Glucose 168 mg/dL (70-105) H 04/15/18 03:41 POC Glucose 197 mg/dL (70-99) H 04/15/18 16:29 Total Bilirubin 0.2 mg/dL (0.3-1.0) L 04/15/18 03:41 Troponin I 0.08 ng/mL (< 0.04) H* 04/15/18 17:00 Ur Specific [place] 1.026 (1.010-1.025) H 04/14/18 11:50 Urine Blood Moderate (Negative) H 04/14/18 11:50 Urine Microscopic RBC 30-50 per hpf (0-3) H 04/14/18 11:50 Ur Squamous Epith Cells Many per lpf (None-Few) H 04/14/18 11:50 - Microbiology Findings Microbiology Findings: Microbiology, Last 48 Hours 04/14/18 13:18 Sputum Culture - Final Sputum 04/14/18 11:50 Legionella Antigen - Final Urine,Clean Catch Streptococcus pneumoniae Antigen (M - Final - Clinical Findings Intake & Output: Intake & Output 04/15/18 04/15/18 04/15/18 07:59 15:59 23:59 Intake Total 110 / 110 240 / 240 Output Total 925 / 925 1400 / 1400 1400 / 1400 Balance -815 / -815 -1400 / -1400 -1160 / -1160 Weight 86 kg - Attending Attestation - Attending Attestation I saw and evaluated this patient and my medical decision-making was reviewed with the Resident Physician. I agree with the documented findings, disposition and treatment plan as described except to the extent set forth below. We independently had [id number] contact with the patient Patient seen and examined at bedside Labs, radiology, chart personally reviewed. Management was reviewed during multidisciplinary critical care rounds. MATE FOURTH:Patient is awake following commands . CT head showed no acute process Pulm: Patient has chronic respiratory failure trach dependent got tracheostomy post laryngeal cancer , CXR didnt show any acute process has accpetable oxygenation and ventilation will liberate from Vent will do CPAP trial will put him on trach collar . Patient has tracheostomy tube dislodged developed acute hypoxia followed by loss of consciousness and seizure like activity . 04/15 : CTA showed no evidence of pulmonary embolism showed right basilar consolidation with some elevated hemidiaphragm probably this consolidation causing this V/Q mismatch Cards: Patient is hemodynamically stable with now found possible right lower pneumonia the initial hypotension might be related to sepsis now resolved FEN-GI: Advance diet as tolerated Renal: Labs and output reviewed ID: Pneumonia to cover with broad spectrum antibiotics Heme/Onc:Labs reviewed Endo: Glucose Monitored Integ/MSK: Skin Care per routine Nursing Protocol to prevent ulcers. Lines: All lines examined without evidence of infection : Dispo: Patient doesnt need ICU care will sign off CODE:Full Code
[2018-04-15] MEDS ORDERED: GuaiFENesin Liq 200 MG/10 ML UDC PO PRN (13:38)
[2018-04-15] MEDS ORDERED: Furosemide 40 MG TABLET PO SCH (13:45)
[2018-04-15] MEDS ORDERED: NON-FORMULARY MEDICATION 1 EACH EACH (Amlodipine Besylate [Amlodipine Besylate] 10 MG) PO SCH (13:45)
[2018-04-15] MEDS: (Methyl Salicylate/Menthol [Salonpas Patch] 1 EACH) TP SCH (15:45)
[2018-04-15] MEDS: Folic Acid 1 MG TABLET PO SCH (15:53)
[2018-04-15] MEDS: Aspirin Enteric Coated 81 MG Tablet PO SCH (15:53)
[2018-04-15] MEDS: Famotidine 20 MG TABLET PO SCH ×2 (15:53→22:42)
[2018-04-15] MEDS: Lisinopril 20 MG TABLET PO SCH (15:53)
[2018-04-15] MEDS: Sennosides 8.6 MG TABLET PO SCH (15:53)
[2018-04-15] MEDS: Loratadine 10 MG TABLET PO SCH (16:47)
--- NOTE | 2018-04-15 17:38 | Internal Med Progress Note ---
Date of Encounter: 04/15/18 Time of Encounter: 17:37 - Assessment and plan (1) Severe sepsis Current Visit: Yes Status: Resolved Assessment and plan: Resolved. Will deescalate antibiotics to IV levaquin and IV cefepime. Monitor vitals closely. (2) Pneumonia Current Visit: Yes Status: Acute Assessment and plan: Likely not aspiration pneumonia, as patient has had total laryngectomy. Will deescalate antibiotics to IV levaquin and IV cefepime to cover HCAP. No respiratory distress at this time. On trach collar, will wean as tolerated. Qualifiers: Pneumonia type: aspiration pneumonia Aspiration pneumonia type: due to gastric secretions Laterality: unspecified laterality Qualified Code(s): J69.0 - Pneumonitis due to inhalation of food and vomit (3) Acute and chronic respiratory failure with hypoxia Current Visit: Yes Status: Acute Assessment and plan: Likely secondary to pneumonia. Continue suctioning. Continue scheduled duonebs. Start claritin and mucinex. Up to chair TID. Will wean trach collar as tolerated. (4) Trachea displaced Current Visit: Yes Status: Resolved (5) Acute delirium Current Visit: Yes Status: Resolved Assessment and plan: Resolved. (6) Shock Current Visit: Yes Status: Resolved Assessment and plan: Resolved. (7) COPD with acute exacerbation Current Visit: Yes Status: Acute Assessment and plan: Continue duonebs and IV steroids. Transition to PO steroids with continued improvement. On trach collar, wean as tolerated. (8) DVT prophylaxis Current Visit: Yes Status: Acute Assessment and plan: Continue SQ lovenox. - Time Spent With Patient Total time spent is greater than 50% in coordination of care (as documented) at patient's floor/unit and/or counseling patient: less than 15 minutes - Subjective Interval history: Patient had no acute events overnight. He is sitting up in chair eating dinner without any issues. I spoke with speech therapist, who states that patient has no swallowing issues and that he cannot aspirate because he has had total laryngectomy. He is non-verbal, but can express his needs through motions and nodding/shaking of head. Patient denies chest pain, SOB, fever, chills, nausea , vomiting, or abdominal pain. He has no complaints at this time. - Constitutional Vitals: Temp Pulse Resp BP Pulse Ox 97.8 F 96 18 137/80 97 04/15/18 16:30 04/15/18 16:30 04/15/18 16:30 04/15/18 16:30 04/15/18 16:30 General appearance: Present: cooperative, A&O X 3, pleasant, no acute distress. Absent: answers questions appropriately Exam: Nonverbal, but can answer questions with motions and nodding/shaking of head - Respiratory Respiratory exam: Present: CTAB. Absent: accessory muscle use, rales, rhonchi, wheezes Additional comments: Normal WOB - Cardiovascular Cardiovascular exam: Present: RRR, +S1, +S2. Absent: diastolic murmur, gallop, rubs, systolic murmur Additional comments: No BLE edema - GI/Abdominal GI/Abdominal exam: Present: normal bowel sounds, soft. Absent: distended, hepatomegaly, mass, splenomegaly, tenderness - Psychiatric Psychiatric exam: Present: normal affect, normal mood. Absent: agitated, anxious, depressed - Skin Skin exam: Present: dry, intact, warm. Absent: cyanosis, rash Internal Medicine: Result - Labs CBC & Chem 7: 04/15/18 03:41 04/15/18 03:41 Labs: Short CBC 04/15/18 Range/Units 03:41 WBC 14.0 H (4.3-11.1) K/mcL Hgb 10.5 L D (12.9-16.9) g/dL Hct 31.5 L (37.5-50.1) % Plt Count 315 (140-400) K/mcL Neutrophils # 12.1 H (1.6-8.9) K/mcL BMP 04/15/18 03:41 Sodium 136 Potassium 4.1 Chloride 107 Carbon Dioxide 24 BUN 14 Creatinine 0.68 L Glucose 168 H Calcium 9.4 Cardiac Enzymes 04/15/18 Range/Units 08:12 Troponin I 0.07 H* (< 0.04) ng/mL Liver Function 04/15/18 Range/Units 03:41 Total Bilirubin 0.2 L (0.3-1.0) mg/dL AST 14 (13-39) Units/L ALT 11 (7-52) Units/L Alkaline Phosphatase 75 (34-104) Units/L Albumin 3.5 (3.5-5.7) g/dL - ABG Interpretation ABG results: ABG ABG pH 7.39 pH Units (7.32-7.45) 04/14/18 09:40 ABG pCO2 44 mmHg (35-45) 04/14/18 09:40 ABG pO2 145 mmHg (85-104) H 04/14/18 09:40 ABG O2 Saturation 99 % (95-98) H 04/14/18 09:40 PT/INR, D-dimer PT 11.5 Seconds (9.4-12.1) 04/14/18 02:43 - Impressions Impressions Echocardiogram 04/14/18 12:59 Impressions: LVEF 65%. Indeterminate diastolic function. Definity echo contrast was used. Normal right ventricular structure and function. Mild tricuspid regurgitation. No pulmonary hypertension. Left Ventricular Wall Motion: Rest Echo Findings The apical anterior, mid anterior, basal anterior, mid anterior septal and mid inferior lateral ray were not visualized. All other wall segments showed normal motion. Findings: Study Quality * Technically sub-optimal due to clinical status - patient unable to cooperate with exam. ECG Findings * Sinus tachycardia. Left Ventricle * LVEF 65%. * Indeterminate diastolic function. * Normal LV chamber size. * Probably asymmetric basal septal hypertrophy. No LVOTO. * Definity echo contrast was used. Right Ventricle * Normal right ventricular structure and function. Left Atrium * Normal left atrial size. Right Atrium * Normal right atrial size. Mitral Valve * Mitral valve structure appears normal but is not well visualized in all available views. * No mitral stenosis. * No mitral regurgitation. Aortic Valve * No aortic regurgitation. * Moderately calcified aortic valve leaflets. * No aortic stenosis. Tricuspid Valve * Tricuspid valve not well visualized. * Mild tricuspid regurgitation. * Estimated RA pressure is 8 mmHg. * Estimated RVSP is 33 mmHg. * No pulmonary hypertension. Pulmonic Valve * Pulmonic valve is not well visualized. * No pulmonic stenosis. * No pulmonic regurgitation. Pulmonary Artery * Pulmonary artery not well visualized. Aorta * Normally sized aortic root. Pericardium * There is no pericardial effusion present. Interatrial Septum * No evidence of PFO by color Doppler. IVC * The IVC is not dilated. * < 50% respiratory change. Chest CTA 04/15/18 07:29 IMPRESSION: 1. No evidence of acute pulmonary artery embolism. 2. Elevated right hemidiaphragm with small right subpulmonic pleural effusion and consolidation representing atelectasis or infection in the correct clinical setting. 3. Intubation with asymmetric soft tissue density involving the tongue base extending to the lower neck with compression of the trachea and esophagus. Refer to CT neck 01/31/2018. D/ / 04/15/2018 09:27:58 Robert Angel MD / verito Interpreting Provider: Robert Angel MD Consult Discharge Plan - Plan Referrals: NONE,PCP [Primary Care Provider] -
[2018-04-15] MEDS ORDERED: Insulin LISPRO 300 UNITS/3 ML VIAL SQ SCH (21:00)
[2018-04-15] MEDS ORDERED: Insulin DETEMIR 100 UNIT/ML X5UNITS SQ SCH (21:00)
[2018-04-15] MEDS: *HR* OxyCODONE Immed Rel 5 MG TABLET PO PRN (22:41)
[2018-04-16 00:57] LABS: Basophils % 0.1 %; Hemoglobin 10.5 g/dL (12.9-16.9); Immature Granulocytes % 0.9 % (0-4); Lymphocytes # 1.4 K/mcL (0.6-4.6); Lymphocytes % 6.7 %; Mean Corpuscular HGB Conc 32.8 g/dL (31.6-35.5); Mean Corpuscular Hemoglobin 31.2 pg (28.0-33.3); Mean Platelet Volume 9.5 fL (9.4-12.4); Monocytes # 1.1 K/mcL (0.0-1.3); Monocytes % 5.5 %; Neutrophils # 17.9 K/mcL (1.6-8.9); Platelet Count 324 K/mcL (140-400); Red Blood Count 3.37 M/mcL (4.19-5.50); Red Cell Distribution Width 13.9 % (11.5-14.5); Segmented Neutrophils % 86.8 %
[2018-04-16] MEDS ORDERED: *HR* LORazepam 2 MG/ML VIAL IVP ONE (01:15)
[2018-04-16] MEDS: Ipratropium/Albuterol Neb 3 ML IH SCH ×5 (01:21→15:56)
[2018-04-16] MEDS: MethylPREDNISolone 40 MG/ML VIAL IVP SCH ×3 (01:22→11:57)
[2018-04-16 01:38] LABS: BUN/Creatinine Ratio 16 (6-26); Blood Urea Nitrogen 14 mg/dL (8-23); Calcium 9.7 mg/dL (8.6-10.3); Carbon Dioxide 23 mEq/L (23-29); Chloride 109 mEq/L (98-107); Glucose 166 mg/dL (70-105); Osmolality,Calculated 296 (280-300); Potassium 4.2 mEq/L (3.5-5.1); Sodium 141 mEq/L (136-145); eGFR For African Americans > 60 (> 60); eGFR For Non-African Americans > 60 (> 60)
[2018-04-16] MEDS: (Methyl Salicylate/Menthol [Salonpas Patch] 1 EACH) TP SCH ×2 (03:57→14:29)
[2018-04-16] MEDS: Cefepime HCl 1,000 MG in Water for inj. (sterile) 20 ML 10 ML IVP SCH ×2 (04:24→14:28)
[2018-04-16] MEDS: *HR* Enoxaparin 40 MG/0.4 ML SYRINGE SQ SCH (04:24)
[2018-04-16] MEDS: Levofloxacin 750 MG/150 ML 750 MG/150 ML BAG IVPB SCH (09:05)
[2018-04-16] MEDS: Folic Acid 1 MG TABLET PO SCH (09:06)
[2018-04-16] MEDS: Loratadine 10 MG TABLET PO SCH (09:06)
[2018-04-16] MEDS: Famotidine 20 MG TABLET PO SCH (09:06)
[2018-04-16] MEDS: Aspirin Enteric Coated 81 MG Tablet PO SCH (09:06)
[2018-04-16] MEDS: Sennosides 8.6 MG TABLET PO SCH (09:06)
[2018-04-16] MEDS: Lisinopril 20 MG TABLET PO SCH (09:06)
[2018-04-16] MEDS: *HR* OxyCODONE Immed Rel 5 MG TABLET PO PRN (09:07)
[2018-04-16] MEDS: Insulin LISPRO 300 UNITS/3 ML VIAL SQ SCH ×2 (09:11→11:58)
--- NOTE | 2018-04-16 16:35 | Discharge Summary ---
- NOTES TO OUTPATIENT PROVIDER Notes to Outpatient Provider: Follow up with SNF physician in 2-3 days after discharge. Repeat CBC at that time (leukocytosis likely secondary to steroid use). Orders not resulted at time of discharge: Pending orders 04/14/18 12:20 Culture,Blood [BC] Stat 04/14/18 13:08 Procalcitonin Stat Date of Encounter: 04/16/18 Time of Encounter: 16:35 - Discharge Diagnosis (1) Severe sepsis Priority: Primary Status: Resolved (2) Pneumonia Priority: Secondary Status: Acute Qualifiers: Pneumonia type: aspiration pneumonia Aspiration pneumonia type: due to gastric secretions Laterality: unspecified laterality Qualified Code(s): J69.0 - Pneumonitis due to inhalation of food and vomit (3) Acute and chronic respiratory failure with hypoxia Priority: Secondary Status: Resolved (4) Trachea displaced Priority: Secondary Status: Resolved (5) Acute delirium Priority: Secondary Status: Resolved (6) Shock Priority: Secondary Status: Resolved (7) COPD with acute exacerbation Priority: Secondary Status: Acute (8) DVT prophylaxis Priority: Secondary Status: Acute Hospital course: Mr. Patricio is a 62 year old male admitted for hypoxia, sepsis, and acute respiratory failure likely secondary to stoma issue and pneumonia. Patient was admitted to step down unit with telemetry. Stoma was suctioned with no further issues. He was placed on trach collar. ST was consulted for concern about possible aspiration. ST determined that he has total laryngectomy and no trach , and he is therefore not at risk of aspiration. Pulmonology was consulted. He was started on multiple antibiotics to cover for HCAP and aspiration pneumonia. These were later cut back to just levaquin and cefepime. After discussion with pharmacist, he will be discharged back to SNF with PO levaquin ( 7 day course). He was started on IV solumedrol for possible COPD exacerbation. He was also started on nebulizers. He will complete prednisone taper at [facility]. He was weaned to room air today without any issues. He will follow up with SNF physician in 2-3 days after discharge. Repeat CBC can be obtained at that time to monitor leukocytosis, likely secondary to steroid use. Patient has met maximum benefit of this hospitalization and will be discharged back to [facility] in stable condition. Discharge discussed with: patient, nurse, other (Pharmacist) - Time Spent with Patient Total time spent providing and/or coordinating discharge services: Greater than 30 minutes - Discharge Medications Prescriptions: Levofloxacin [Levaquin] 750 mg PO DAILY 5 Days #5 tablet OxyCODONE Immed Rel [Roxicodone 10 MG] 10 mg PO Q8H PRN 3 Days #9 tablet PRN Reason: Severe Pain predniSONE [PredniSONE] See Taper PO DAILY 15 Days #54 tablet Home Medications: Amlodipine Besylate 10 mg PO DAILY 04/14/18 [History] Aspirin [Lo-Dose Aspirin EC] 81 mg PO DAILY 04/14/18 [History] Citalopram Hydrobromide [Citalopram HBr] 10 mg PO DAILY 04/14/18 [History] Famotidine [Pepcid] 20 mg PO BID 04/14/18 [History] Folic Acid 1 mg PO DAILY 04/14/18 [History] Furosemide [Lasix] 40 mg PO DAILY 04/14/18 [History] Glucagon,Human Recombinant [Glucagen] 1 mg IJ ONCE PRN 04/14/18 [History] Guaifenesin [Diabetic Tussin Ex] 10 ml PO Q4H PRN 04/14/18 [History] Insulin Glargine,Hum.rec.anlog [Basaglar Kwikpen U-100] 5 unit SQ HS 04/14/18 [ History] Insulin Human Regular [HumuLIN R] 0 unit SQ TIDWM 04/14/18 [History] Lisinopril [Zestril] 20 mg PO DAILY 04/14/18 [History] Methyl Salicylate/Menthol [Salonpas Patch] 1 each TP Q12H 04/14/18 [History] Omeprazole [PriLOSEC] 40 mg PO DAILY 04/14/18 [History] Sennosides [Senna] 8.6 mg PO DAILY 04/14/18 [History] Simvastatin [Zocor] 20 mg PO 1800 04/14/18 [History] Tamsulosin [Flomax] 0.4 mg PO DAILY 04/14/18 [History] Levofloxacin [Levaquin] 750 mg PO DAILY 5 Days #5 tablet 04/16/18 [Rx] OxyCODONE Immed Rel [Roxicodone 10 MG] 10 mg PO Q8H PRN 3 Days #9 tablet [Rx] predniSONE [PredniSONE] See Taper PO DAILY 15 Days #54 tablet 04/16/18 [Rx] Allergies/Adverse Reactions: 3 Allergy/AdvReac Type Severity Reaction Status Date / Time ampicillin [From Unasyn] Allergy See Verified 01/31/18 00:27 Comments sulbactam [From Unasyn] Allergy See Verified 01/31/18 00:27 Comments Date of admission: 04/14/18 09:15 Primary care physician: PCP NONE Consults: 04/14/18 09:19 Consult to Pulmonology [CONS] Stat Consulting Provider: Pulm [facility] Jaqui Reason for Consult: Acute on chronic hypoxic resp failure ASpiration PNA Time Notified: 09:19 Call Completed: Yes 04/14/18 10:11 Consult to Invasive Line Access Team [CONS] Routine Reason for Consult: POWER WAND Line Type: Midline Call Completed: Yes 04/14/18 13:39 Consult to Nutrition [CONS] Routine Comment: Consulting Provider: NUTRITION Reason for Dietary Consult: MST Score 04/15/18 09:24 Consult to Physical Therapy [CONS] Routine Comment: Evaluate, develop and implement POC Reason for Consult: weakness, return to ECF Does patient have active BEDREST order?: No Is patient medically & hemodynamically stable?: Yes Patient assessed for mobility or mobilized this visit?: No 04/15/18 11:11 Consult to Speech Therapy [CONS] Routine Comment: Evaluate, develop and implement POC Reason for Consult: Evaluate for diet advancement beyond clear liquid Time Notified: 11:22 Call Completed: Yes Discharging clinician: Carter Cooley Anticipated date of discharge: 04/16/18 - Constitutional Vitals: Temp Pulse Resp BP Pulse Ox 97.7 F 98 18 110/67 97 04/16/18 11:29 04/16/18 11:29 04/16/18 15:59 04/16/18 11:29 04/16/18 15:59 General appearance: Present: cooperative, A&O X 3, pleasant, no acute distress Exam: Non-verbal, but able to motion and nod/shake head - Respiratory Respiratory exam: Present: CTAB. Absent: accessory muscle use, rales, rhonchi, wheezes Additional comments: Normal WOB, stoma in place at laryngectomy site - Cardiovascular Cardiovascular exam: Present: RRR, +S1, +S2. Absent: diastolic murmur, gallop, rubs, systolic murmur Additional comments: No BLE edema - GI/Abdominal GI/Abdominal exam: Present: normal bowel sounds, soft. Absent: distended, hepatomegaly, mass, splenomegaly, tenderness - Psychiatric Psychiatric exam: Present: normal affect, normal mood. Absent: agitated, anxious, depressed - Skin Skin exam: Present: dry, intact, warm. Absent: cyanosis, rash - Patient Status Disposition: Transfer SNF Condition: Good Overall status at discharge: patient is progressing back to baseline - Discharge Instructions Follow Up With: NONE,PCP [Primary Care Provider] - Additional Instructions: Follow up with SNF physician in 2-3 days after discharge. Repeat CBC at that time (leukocytosis likely secondary to steroid use). - Diet and Activity Activity: resume usual activities as tolerated Diet: diabetic diet, low fat, low cholesterol, low salt diet, other (Cardiac Diet)
[2018-04-16 16:38] VITALS: BP 110/42
--- NOTE | 2018-04-16 16:53 | Physician Discharge Referral ---
ExtendedCare Referral Info Transfer To: [facility] Provider in Charge after Transfer: Other (SNF Physician) Institutional Level of Care: Skilled - Diagnosis (1) Severe sepsis Priority: Primary Status: Resolved (2) Pneumonia Priority: Secondary Status: Acute (3) Acute and chronic respiratory failure with hypoxia Priority: Secondary Status: Resolved (4) Trachea displaced Priority: Secondary Status: Resolved (5) Acute delirium Priority: Secondary Status: Resolved (6) Shock Priority: Secondary Status: Resolved (7) COPD with acute exacerbation Priority: Secondary Status: Acute (8) DVT prophylaxis Priority: Secondary Status: Acute Prognosis: Fair Aware of Diagnosis: Patient Aware of Prognosis: Patient - Transfer Medications Prescriptions: Levofloxacin [Levaquin] 750 mg PO DAILY 5 Days #5 tablet OxyCODONE Immed Rel [Roxicodone 10 MG] 10 mg PO Q8H PRN 3 Days #9 tablet PRN Reason: Severe Pain predniSONE [PredniSONE] See Taper PO DAILY 15 Days #54 tablet Home Medications: Amlodipine Besylate 10 mg PO DAILY 04/14/18 [History] Aspirin [Lo-Dose Aspirin EC] 81 mg PO DAILY 04/14/18 [History] Citalopram Hydrobromide [Citalopram HBr] 10 mg PO DAILY 04/14/18 [History] Famotidine [Pepcid] 20 mg PO BID 04/14/18 [History] Folic Acid 1 mg PO DAILY 04/14/18 [History] Furosemide [Lasix] 40 mg PO DAILY 04/14/18 [History] Glucagon,Human Recombinant [Glucagen] 1 mg IJ ONCE PRN 04/14/18 [History] Guaifenesin [Diabetic Tussin Ex] 10 ml PO Q4H PRN 04/14/18 [History] Insulin Glargine,Hum.rec.anlog [Basaglar Kwikpen U-100] 5 unit SQ HS 04/14/18 [ History] Insulin Human Regular [HumuLIN R] 0 unit SQ TIDWM 04/14/18 [History] Lisinopril [Zestril] 20 mg PO DAILY 04/14/18 [History] Methyl Salicylate/Menthol [Salonpas Patch] 1 each TP Q12H 04/14/18 [History] Omeprazole [PriLOSEC] 40 mg PO DAILY 04/14/18 [History] Sennosides [Senna] 8.6 mg PO DAILY 04/14/18 [History] Simvastatin [Zocor] 20 mg PO 1800 04/14/18 [History] Tamsulosin [Flomax] 0.4 mg PO DAILY 04/14/18 [History] Levofloxacin [Levaquin] 750 mg PO DAILY 5 Days #5 tablet 04/16/18 [Rx] OxyCODONE Immed Rel [Roxicodone 10 MG] 10 mg PO Q8H PRN 3 Days #9 tablet [Rx] predniSONE [PredniSONE] See Taper PO DAILY 15 Days #54 tablet 04/16/18 [Rx] Allergies/Adverse Reactions: 3 Allergy/AdvReac Type Severity Reaction Status Date / Time ampicillin [From Unasyn] Allergy See Verified 01/31/18 00:27 Comments sulbactam [From Unasyn] Allergy See Verified 01/31/18 00:27 Comments - Respiratory Orders None Smoking Cessation: Smoking cessation has been advised. For more information, call the [place] Tobacco Quit Line at 2-689-JSAI-NOW. - Lab Orders Lab Orders: CBC (in 2-3 days after discharge) - Advance Directives Code Status: Full Code - Mobility Orders Other (Per physical therapy) - Rehabiliation Orders Rehab Potential: Fair Rehab Orders: Evaluation for Physical Therapy, Evaluation for Occupational Therapy - Diet Orders No Added Salt (CHRISTO), No Concentrated Sweets (Diabetic Diet), Cardiac CERTIFICATION: I certify that the transfer of the above named patient to an Extended Care Facility is necessary for the continuing treatment of the diagnosis listed. The above information is true and accurate reflection of patient's current condition. Confidential - Redisclosure prohibited without a patient's written consent.
[2018-04-16] MEDS ORDERED: MethylPREDNISolone 40 MG/ML VIAL IVP SCH (20:00)
--- NOTE | 2018-04-18 21:45 | Electrocardiograph Report ---
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
== END 2018-04-16 19:02 | DRG 720 ==
LOC: EMEROO 02:36 → 2NNU 02:36
PROVIDERS: ADMIT Internal Medicine Hematology & Oncology; ATTEND Internal Medicine Hematology & Oncology

== ENCOUNTER 2018-04-19 11:06 | Observation (INO) ==
[2018-04-19] MEDS ORDERED: Ipratropium/Albuterol Neb 3 ML IH ONE (11:09)
--- NOTE | 2018-04-19 11:18 | Emergency Department Note ---
Disposition Clinical Impression: Trachea displaced Dyspnea Qualifiers: Dyspnea type: unspecified Qualified Code(s): R06.00 - Dyspnea, unspecified Disposition: Admitted As Inpatient Condition: Undetermined Referrals: NONE,PCP [Primary Care Provider] - Forms: ED Satisfaction Letter Time of Disposition: 15:07 SOB HPI - General Chief Complaint: ED Shortness of Breath/Dyspnea Stated Complaint: Difficulty Breathing Time Seen by Provider: 04/19/18 11:08 Source: EMS Mode of arrival: EMS Limitations: physical limitation Nursing Notes Reviewed: Yes Vital Signs Reviewed: Yes - History of Present Illness 62-year-old male from a [facility] facility arrives to the emergency department complaining of shortness of breath that started overnight. 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 The patient presented to the emergency department roughly 1-2 weeks ago and had a tracheostomy ostomy tube that was placed at that time due to patient's respiratory distress. At that time the patient was admitted to the hospital. He was discharged back to the [facility] facility with the tracheostomy tube. The patient has not been tolerating the tracheostomy tube and exit pulled out this morning due to irritation of his airway. The patient was noted to have been suctioned numerous times over night which she stated did help that the patient is difficult to understand is a very poor story and due to difficulty in understanding associated with the tracheostomy/laryngectomy. The patient admits to shortness of breath and is in mild respiratory distress despite having an O2 saturation of 95% on 2 L trach mask. The patient has a patent stoma of his trachea. There is a large amount of secretions that is associated with an patient is coughing with coarse breath sounds associated with this cough. He denies any other complaints at this time. - Related Data Home Medications Medication Instructions Recorded Confirmed Amlodipine Besylate 10 mg PO DAILY 04/14/18 04/19/18 Aspirin [Lo-Dose Aspirin EC] 81 mg PO DAILY 04/14/18 04/19/18 Citalopram Hydrobromide 10 mg PO DAILY 04/14/18 04/19/18 [Citalopram HBr] Famotidine [Pepcid] 20 mg PO BID 04/14/18 04/19/18 Folic Acid 1 mg PO DAILY 04/14/18 04/19/18 Furosemide [Lasix] 40 mg PO DAILY 04/14/18 04/19/18 Glucagon,Human Recombinant 1 mg IJ ONCE PRN 04/14/18 04/19/18 [Glucagen] Guaifenesin [Diabetic Tussin Ex] 10 ml PO Q4H PRN 04/14/18 04/19/18 Insulin Glargine,Hum.rec.anlog 5 unit SQ HS 04/14/18 04/19/18 [Basaglar Kwikpen U-100] Insulin Human Regular [HumuLIN R] 0 unit SQ TIDWM 04/14/18 04/19/18 Lisinopril [Zestril] 20 mg PO DAILY 04/14/18 04/19/18 Methyl Salicylate/Menthol 1 each TP Q12H 04/14/18 04/19/18 [Salonpas Patch] Omeprazole [PriLOSEC] 40 mg PO DAILY 04/14/18 04/19/18 Sennosides [Senna] 8.6 mg PO DAILY 04/14/18 04/19/18 Simvastatin [Zocor] 20 mg PO 1800 04/14/18 04/19/18 Tamsulosin [Flomax] 0.4 mg PO DAILY 04/14/18 04/19/18 Previous Rx's Medication Instructions Recorded Levofloxacin [Levaquin] 750 mg PO DAILY 5 Days #5 tablet 04/16/18 OxyCODONE Immed Rel [Roxicodone 10 10 mg PO Q8H PRN 3 Days #9 tablet 04/16/18 MG] Allergies Allergy/AdvReac Type Severity Reaction Status Date / Time ampicillin [From Unasyn] Allergy See Verified 01/31/18 00:27 Comments sulbactam [From Unasyn] Allergy See Verified 01/31/18 00:27 Comments All systems ED: reviewed and negative except as stated. Constitutional: Denies: fever, chills ENT ED: Reports: congestion Cardiovascular: Denies: chest pain Respiratory: Reports: cough, dyspnea, wheezes (mild) Gastrointestinal: Denies: abdominal pain Genitourinary: Denies: urgency, dysuria Musculoskeletal: Denies: back pain Past Medical History - Past Medical History Attestation: Yes The following information was validated with the patient. Source: patient, old records reviewed Medical history: Reports: arthritis, cancer, COPD, CVA, diabetes, GERD, hyperlipidemia, hypertension Surgical history: Reports: other (tracheostomy) Psychiatric history: Reports: anxiety, depression - Social History Smoking Status: Former smoker Smokeless Tobacco Status: No Alcohol use: Reports: none Drug use: Reports: none Physical Exam - General Limitations: physical limitation General appearance: alert, anxious - Head Head exam: atraumatic, normocephalic, normal inspection - Eye Eye exam: Present: normal appearance, PERRL, EOMI - ENT ENT exam: normal exam, normal oropharynx, mucous membranes moist - Neck Neck exam: Present: full ROM, trachea midline (with stoma in place with some mild secretions noted) - Chest Chest inspection: Present: normal inspection, symmetric chest wall rise - Respiratory Respiratory exam: Present: other (Coarse breath sounds bilaterally) - Cardiovascular Cardiovascular exam: Present: regular rate, normal rhythm, normal heart sounds - Abdominal Exam Abdominal exam: Present: soft, Non-Tender. Absent: tenderness, distention, guarding, rebound, rigidity - Extremities Exam Extremities exam: Present: normal inspection, full ROM. Absent: tenderness, pedal edema - Neurological Exam Neurological exam: Present: alert, oriented X3 - Skin Skin exam: Present: warm, dry, intact, normal color Course Vital Signs Temperature 98.2 F 04/19/18 11:08 Pulse Rate 98 04/19/18 11:08 Respiratory Rate 22 04/19/18 11:08 Blood Pressure 135/95 04/19/18 11:08 O2 Sat by Pulse Oximetry 91 04/19/18 11:08 Temperature 98.2 F 04/19/18 11:08 Pulse Rate 103 04/19/18 14:56 Respiratory Rate 12 04/19/18 14:56 Blood Pressure 118/84 04/19/18 14:56 O2 Sat by Pulse Oximetry 97 04/19/18 14:56 Oxygen Delivery Oxygen Delivery Trach Mask Shortness of Breath/Dyspnea - [facility] Narrative Medical decision making narrative: Patient's chest x-ray demonstrates no acute process. The patient has a laryngectomy but continued to tears worsening shortness of breath. At that time a Shiley for CDT was placed and the patient had significant improvement with his respiratory status afterward. The patient was noted to be very tachycardic and short of breath at this time. This appears to be related to his tracheostomy/laryngectomy. Once his trach was replaced with the Shiley tube there was a significant improvement in his heart rate as well as his respiratory status. The patient is now resting comfortably in the room. He remains mildly tachycardic but states that he is feeling better. His heart rate is continued to trend downward. We do not feel any further imaging is warranted at this time. We spoke to Dr. Mauro in ENT and stated he was see the patient once admitted. We will get the patient at this time. Accepted by Dr. Washington - Lab Data Lab results reviewed: Yes I reviewed the patient's lab results. Result diagrams: 04/19/18 11:40 04/19/18 11:40 Lab Results 04/19/18 04/19/18 Range/Units 11:40 11:40 WBC 12.0 H (4.3-11.1) K/mcL RBC 3.76 L (4.19-5.50) M/mcL Hgb 11.8 L (12.9-16.9) g/dL Hct 34.4 L (37.5-50.1) % MCV 91.5 (83.0-100.0) fL MCH 31.4 (28.0-33.3) pg MCHC 34.3 (31.6-35.5) g/dL RDW 13.5 (11.5-14.5) % Plt Count 339 (140-400) K/mcL MPV 9.7 (9.4-12.4) fL Immature Gran % 0.8 (0-4) % Seg Neutrophils % 62.6 % Lymphocytes % 25.0 % Monocytes % 8.4 % Eosinophils % 3.0 % Basophils % 0.2 % Neutrophils # 7.5 (1.6-8.9) K/mcL Lymphocytes # 3.0 (0.6-4.6) K/mcL Monocytes # 1.0 (0.0-1.3) K/mcL Eosinophils # 0.4 (0.0-0.6) K/mcL Basophils # 0.0 (0.0-0.2) K/mcL Sodium 138 (136-145) mEq/L Potassium 3.6 (3.5-5.1) mEq/L Chloride 102 (98-107) mEq/L Carbon Dioxide 27 (23-29) mEq/L BUN 17 (8-23) mg/dL Creatinine 0.67 L (0.70-1.30) mg/dL Est GFR ( Amer) > 60 (> 60) Est GFR (Non-Af Amer) > 60 (> 60) BUN/Creatinine Ratio 25 (6-26) Glucose 218 H (70-105) mg/dL Calculated Osmolality 294 (280-300) Calcium 8.9 (8.6-10.3) mg/dL Troponin I < 0.03 (< 0.04) ng/mL - Radiology Data Radiology results reviewed: Yes I reviewed the patient's radiology results. Chest X-Ray 04/19/18 11:08 IMPRESSION: Tracheostomy tube is not seen in appropriate position. Tracheostomy tube like object overlies the right lung apex. This may be extrinsic to the patient. Clinical correlation is recommended. Left basilar atelectasis. Otherwise, no radiographic evidence of cardiopulmonary process. D/ / 04/19/2018 11:49:13 Rubin Escamilla MD / marielle Interpreting Provider: Rubin Escamilla MD - EKG Data EKG attestation: Yes I reviewed and interpreted this EKG. EKG results narrative: Heart rate 91 beats for minute. Normal sinus rhythm. No ST elevation or ST depression noted. No acute changes noted.
--- NOTE | 2018-04-19 11:42 | Emergency Department Note ---
Disposition Clinical Impression: Trachea displaced Disposition: Still a Patient Forms: ED Satisfaction Letter General Adult HPI - General Chief complaint: ED Shortness of Breath/Dyspnea Stated complaint: Difficulty Breathing Time Seen by Provider: 04/19/18 11:08 Source: EMS Mode of arrival: EMS Limitations: physical limitation - History of Present Illness Pain Scale: 0 - Related Data Home Medications Medication Instructions Recorded Confirmed Amlodipine Besylate 10 mg PO DAILY 04/14/18 04/14/18 Aspirin [Lo-Dose Aspirin EC] 81 mg PO DAILY 04/14/18 04/14/18 Citalopram Hydrobromide 10 mg PO DAILY 04/14/18 04/14/18 [Citalopram HBr] Famotidine [Pepcid] 20 mg PO BID 04/14/18 04/14/18 Folic Acid 1 mg PO DAILY 04/14/18 04/14/18 Furosemide [Lasix] 40 mg PO DAILY 04/14/18 04/14/18 Glucagon,Human Recombinant 1 mg IJ ONCE PRN 04/14/18 04/14/18 [Glucagen] Guaifenesin [Diabetic Tussin Ex] 10 ml PO Q4H PRN 04/14/18 04/14/18 Insulin Glargine,Hum.rec.anlog 5 unit SQ HS 04/14/18 04/14/18 [Basaglar Kwikpen U-100] Insulin Human Regular [HumuLIN R] 0 unit SQ TIDWM 04/14/18 04/14/18 Lisinopril [Zestril] 20 mg PO DAILY 04/14/18 04/14/18 Methyl Salicylate/Menthol 1 each TP Q12H 04/14/18 04/14/18 [Salonpas Patch] Omeprazole [PriLOSEC] 40 mg PO DAILY 04/14/18 04/14/18 Sennosides [Senna] 8.6 mg PO DAILY 04/14/18 04/14/18 Simvastatin [Zocor] 20 mg PO 1800 04/14/18 04/14/18 Tamsulosin [Flomax] 0.4 mg PO DAILY 04/14/18 04/14/18 Previous Rx's Medication Instructions Recorded Levofloxacin [Levaquin] 750 mg PO DAILY 5 Days #5 tablet 04/16/18 OxyCODONE Immed Rel [Roxicodone 10 10 mg PO Q8H PRN 3 Days #9 tablet 04/16/18 MG] predniSONE [PredniSONE] See Taper PO DAILY 15 Days #54 04/16/18 tablet Allergies Allergy/AdvReac Type Severity Reaction Status Date / Time ampicillin [From Unasyn] Allergy See Verified 01/31/18 00:27 Comments sulbactam [From Unasyn] Allergy See Verified 01/31/18 00:27 Comments Constitutional: Denies: fever, chills ENT ED: Reports: congestion Cardiovascular: Denies: chest pain Respiratory: Reports: cough, dyspnea, wheezes (mild) Gastrointestinal: Denies: abdominal pain Genitourinary: Denies: urgency, dysuria Musculoskeletal: Denies: back pain Past Medical History - Past Medical History Medical history: Reports: arthritis, cancer, COPD, CVA, diabetes, GERD, hyperlipidemia, hypertension Surgical history: Reports: other (tracheostomy) Psychiatric history: Reports: anxiety, depression - Social History Smoking Status: Former smoker Smokeless Tobacco Status: No Alcohol use: Reports: none Drug use: Reports: none Physical Exam - General Limitations: physical limitation General appearance: alert, anxious Course Vital Signs Temperature 98.2 F 04/19/18 11:08 Pulse Rate 98 04/19/18 11:08 Respiratory Rate 22 04/19/18 11:08 Blood Pressure 135/95 04/19/18 11:08 O2 Sat by Pulse Oximetry 91 04/19/18 11:08 Temperature 98.2 F 04/19/18 11:08 Pulse Rate 98 04/19/18 11:08 Respiratory Rate 22 04/19/18 11:08 Blood Pressure 135/95 04/19/18 11:08 O2 Sat by Pulse Oximetry 91 04/19/18 11:08 Oxygen Delivery Oxygen Delivery Trach Mask Attestation Statement - Attestation Attestation: I examined this patient and my medical decision-making was reviewed with the Resident Physician. I agree with the documented findings, disposition and treatment plan as described except to the extent set forth below. 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 PAtient pulled his trach out due to irrittion and states that he cannot breath alhtough he is 94% on trach mask. He has a laryngectomy. We will do a cardiopulmonary workup and then assess respiratory status. he has been suctioned.
[2018-04-19 12:05] LABS: Basophils % 0.2 %; Eosinophils # 0.4 K/mcL (0.0-0.6); Hematocrit 34.4 % (37.5-50.1); Hemoglobin 11.8 g/dL (12.9-16.9); Immature Granulocytes % 0.8 % (0-4); Mean Corpuscular HGB Conc 34.3 g/dL (31.6-35.5); Mean Corpuscular Hemoglobin 31.4 pg (28.0-33.3); Mean Corpuscular Volume 91.5 fL (83.0-100.0); Mean Platelet Volume 9.7 fL (9.4-12.4); Monocytes % 8.4 %; Neutrophils # 7.5 K/mcL (1.6-8.9); Platelet Count 339 K/mcL (140-400); Red Blood Count 3.76 M/mcL (4.19-5.50); Red Cell Distribution Width 13.5 % (11.5-14.5); Segmented Neutrophils % 62.6 %
[2018-04-19] MEDS ORDERED: *HR* LORazepam 2 MG/ML VIAL ONE (12:22)
[2018-04-19 12:27] LABS: Troponin I < 0.03 ng/mL (< 0.04)
[2018-04-19] MEDS ORDERED: Isovue-370 500 ML INFUS..BTL IV ONE (12:35)
[2018-04-19] MEDS ORDERED: *HR* LORazepam 2 MG/ML VIAL IVP ONE (12:35)
[2018-04-19] MEDS ORDERED: 0.9 % Sodium Chloride 1,000 ML IVC ONE (12:35)
[2018-04-19 12:48] LABS: BUN/Creatinine Ratio 25 (6-26); Blood Urea Nitrogen 17 mg/dL (8-23); Calcium 8.9 mg/dL (8.6-10.3); Carbon Dioxide 27 mEq/L (23-29); Chloride 102 mEq/L (98-107); Glucose 218 mg/dL (70-105); Osmolality,Calculated 294 (280-300); Potassium 3.6 mEq/L (3.5-5.1); Sodium 138 mEq/L (136-145); eGFR For African Americans > 60 (> 60); eGFR For Non-African Americans > 60 (> 60)
[2018-04-19] MEDS ORDERED: Clindamycin 600 MG/50 ML 600 MG/50 ML IV.SOLN IVPB ONE (14:56)
[2018-04-19] MEDS ORDERED: Acetaminophen 325 MG TABLET PO PRN (15:52)
[2018-04-19] MEDS ORDERED: D5% in Water 1,000 ML IVC PRN (16:02)
[2018-04-19] MEDS ORDERED: Dextrose Gel 15 GM/37.5 ML TUBE PO PRN ×2 (16:02)
[2018-04-19] MEDS ORDERED: *HR* Dextrose 50 % in Water (Syg) 50 ML SYRINGE IVP PRN (16:02)
[2018-04-19] MEDS ORDERED: Naloxone 0.4 MG/ML INJ IVP PRN (16:02)
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
[2018-04-19] MEDS: *HR* OxyCODONE Immed Rel 5 MG TABLET PO PRN (16:33)
[2018-04-19] MEDS: Levofloxacin 750 MG/150 ML 750 MG/150 ML BAG IVPB SCH (16:34)
[2018-04-19] MEDS: MethylPREDNISolone 40 MG/ML VIAL IVP SCH ×2 (16:47→20:22)
[2018-04-19] MEDS: 0.9 % Sodium Chloride 1,000 ML IVC SCH (16:47)
[2018-04-19] MEDS: Insulin LISPRO 300 UNITS/3 ML VIAL SQ SCH ×2 (16:49→20:22)
--- NOTE | 2018-04-19 17:04 | Electrocardiograph Report ---
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
[2018-04-19] MEDS: Ipratropium/Albuterol Neb 3 ML IH SCH ×2 (17:36→21:00)
[2018-04-19] MEDS: Insulin DETEMIR 100 UNIT/ML X5UNITS SQ SCH (20:21)
[2018-04-19] MEDS: *HR* HYDROcodone/Acet 5/325 mg TABLET PO PRN (20:21)
[2018-04-19] MEDS: *HR* Heparin 5,000 UNIT/ML VIAL SQ SCH (20:22)
[2018-04-20] MEDS: MetroNIDAZOLE 500 MG/100 ML 500 MG/100 ML BAG IVPB SCH ×3 (01:03→18:18)
[2018-04-20] MEDS: Ipratropium/Albuterol Neb 3 ML IH SCH ×4 (04:09→22:02)
[2018-04-20 05:26] LABS: Basophils % 0.1 %; Hematocrit 33.8 % (37.5-50.1); Hemoglobin 11.6 g/dL (12.9-16.9); Immature Granulocytes % 0.8 % (0-4); Lymphocytes # 1.6 K/mcL (0.6-4.6); Lymphocytes % 12.1 %; Mean Corpuscular HGB Conc 34.3 g/dL (31.6-35.5); Mean Corpuscular Hemoglobin 31.4 pg (28.0-33.3); Mean Corpuscular Volume 91.4 fL (83.0-100.0); Mean Platelet Volume 9.6 fL (9.4-12.4); Monocytes # 0.4 K/mcL (0.0-1.3); Monocytes % 3.3 %; Neutrophils # 10.8 K/mcL (1.6-8.9); Platelet Count 338 K/mcL (140-400); Red Cell Distribution Width 13.5 % (11.5-14.5); Segmented Neutrophils % 83.7 %
[2018-04-20 05:49] LABS: BUN/Creatinine Ratio 23 (6-26); Blood Urea Nitrogen 13 mg/dL (8-23); Calcium 9.2 mg/dL (8.6-10.3); Carbon Dioxide 24 mEq/L (23-29); Chloride 103 mEq/L (98-107); Glucose 171 mg/dL (70-105); Osmolality,Calculated 288 (280-300); Potassium 4.1 mEq/L (3.5-5.1); Sodium 137 mEq/L (136-145); eGFR For African Americans > 60 (> 60); eGFR For Non-African Americans > 60 (> 60)
[2018-04-20] MEDS: *HR* Heparin 5,000 UNIT/ML VIAL SQ SCH ×3 (05:56→22:15)
[2018-04-20] MEDS: MethylPREDNISolone 40 MG/ML VIAL IVP SCH ×2 (08:19→22:15)
[2018-04-20] MEDS: *HR* OxyCODONE Immed Rel 5 MG TABLET PO PRN ×2 (08:19→18:20)
[2018-04-20] MEDS: Folic Acid 1 MG TABLET PO SCH (08:20)
[2018-04-20] MEDS: Aspirin Enteric Coated 81 MG Tablet PO SCH (08:20)
[2018-04-20] MEDS: Lisinopril 20 MG TABLET PO SCH (08:21)
[2018-04-20] MEDS: Levofloxacin 750 MG/150 ML 750 MG/150 ML BAG IVPB SCH (08:21)
[2018-04-20] MEDS: Insulin LISPRO 300 UNITS/3 ML VIAL SQ SCH ×4 (08:22→21:26)
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
--- NOTE | 2018-04-20 14:49 | Internal Med Progress Note ---
Date of Encounter: 04/20/18 Time of Encounter: 14:55 - Assessment and plan (1) Tracheomalacia Current Visit: Yes Status: Acute Assessment and plan: presented after after trach was removed/dislodged. Trach replaced in ED. Tracheoscopy performed at bedside on 04/20/18 per ENT; no stenosis or granulation tissue noted and there was notable posterior tracheal wall collapse and tracheomalacia within the airway which is likely the cause of his dyspnea. ENT recommending modified barium swallow. Adequately oxygenating with 3 L via trach mask. (2) Acute and chronic respiratory failure with hypoxia Current Visit: No Status: Resolved Assessment and plan: Acute on chronic hypoxic respiratory failure secondary to dislodged tracheostomy , pneumonia and acute COPD exacerbation. Continue treating underlying causes. (3) COPD with acute exacerbation Current Visit: No Status: Acute Assessment and plan: Suspect acute exacerbation with SOB, wheezing and cough. Continue IV Levaquin, steroids and bronchodilators. (4) Leukocytosis Current Visit: Yes Status: Acute Assessment and plan: mild, secondary to COPD, pneumonia. Monitor repeat CBC. Qualifiers: Leukocytosis type: unspecified Qualified Code(s): D72.829 - Elevated white blood cell count, unspecified (5) Diabetes Current Visit: Yes Status: Acute Assessment and plan: per hx. SSI. Monitor blood sugar and titrate PRN Qualifiers: Diabetes mellitus type: type 2 Diabetes mellitus chemical equipment controller insulin use: with chemical equipment controller use Diabetes mellitus complication status: without complication Qualified Code(s): E11.9 - Type 2 diabetes mellitus without complications; Z79.4 - [facility] (current) use of insulin (6) DVT prophylaxis Current Visit: No Status: Acute Assessment and plan: heparin - Time Spent With Patient Total time spent is greater than 50% in coordination of care (as documented) at patient's floor/unit and/or counseling patient: - Subjective Interval history: Seen and examined at bedside. Patient is new to me, information obtained mostly from chart review as patient has trach and difficult to understand. Shakes his head no when asked about chest pain or shortness of breath. - Constitutional Vitals: Temp Pulse Resp BP Pulse Ox 98.9 F 84 18 125/78 97 04/20/18 11:51 04/20/18 11:51 04/20/18 11:51 04/20/18 11:51 04/20/18 11:51 General appearance: Present: A&O X 3, morbidly obese, no acute distress - Head Head exam: Present: atraumatic, normocephalic - Eye Eye exam: Present: PERRL, conjuntiva pink, sclera anicteric Pupils: Present: PERRL - Neck Neck exam general surgery: Present: supple, trachea midline. Absent: lymphadenopathy - Respiratory Respiratory exam: Present: rhonchi, wheezes. Absent: accessory muscle use, rales, respiratory distress Additional comments: trach patent to CATM - Cardiovascular Cardiovascular exam: Present: RRR, +S1, +S2. Absent: diastolic murmur, gallop, rubs, systolic murmur - GI/Abdominal GI/Abdominal exam: Present: normal bowel sounds, soft, no peritoneal signs. Absent: distended, tenderness - Extremities Exam Extremities exam: Present: warm, radial pulses palpable and symmetrical. Absent : calf tenderness, cyanotic, pedal edema - Neurological Exam Neurological exam: Present: CN II-XII intact, oriented X3, no focal deficits. Absent: pronater drift, facial droop, speech deficit - Skin Skin exam: Present: dry, intact Internal Medicine: Result - Labs CBC & Chem 7: 04/20/18 05:05 04/20/18 05:05 Labs: Short CBC 04/20/18 Range/Units 05:05 WBC 12.9 H (4.3-11.1) K/mcL Hgb 11.6 L (12.9-16.9) g/dL Hct 33.8 L (37.5-50.1) % Plt Count 338 (140-400) K/mcL Neutrophils # 10.8 H (1.6-8.9) K/mcL BMP 04/20/18 05:05 Sodium 137 Potassium 4.1 Chloride 103 Carbon Dioxide 24 BUN 13 Creatinine 0.57 L Glucose 171 H Calcium 9.2 Consult Discharge Plan - Plan Referrals: NONE,PCP [Primary Care Provider] -
[2018-04-20] MEDS: 0.9 % Sodium Chloride 1,000 ML IVC SCH (19:18)
[2018-04-20] MEDS: Insulin DETEMIR 100 UNIT/ML X5UNITS SQ SCH (22:15)
[2018-04-20] MEDS ORDERED: *HR* LORazepam 2 MG/ML VIAL IVP ONE (22:21)
--- NOTE | 2018-04-20 22:22 | Event Note ---
Date of Encounter: 04/20/18 Time of Encounter: 19:45 Alerted by pts. nurse that pt. stated he wanted to and wanted to stuff a Kleenex into his trach. Pt. reported as tearful and upset. Sitter, suicide precautions, up with assist to bathroom d/t SI, and psych consult ordered and discussed w/1A. Went to see pt. who was sitting up in bed. When asked what was wrong, the pt. reported he wanted to . He stated that he had throat cancer d/ t smoking for 15 years and had to have his voicebox removed. Pt. stated he was having pain in left leg. Nurse reported that he had reported muscle spasms earlier in the day. Flexeril ordered once. Pt. had received oxycodone for pain prior but reported it was not helping. Sitter in room during exam. Notified by nurse that pt. had ripped his trach out at 21:35. Pt. had ripped trach out previously. New trach placed by respiratory. Order for bilateral upper extremity soft restraints ordered so pt. cannot rip out trach again. 1 mg IVP Ativan ordered for pts. anxiety/agitation. Sitter to remain. Will monitor pt. closely overnight and await psych consult recommendations.
[2018-04-21] MEDS: MetroNIDAZOLE 500 MG/100 ML 500 MG/100 ML BAG IVPB SCH ×2 (00:20→08:06)
[2018-04-21] MEDS: *HR* HYDROcodone/Acet 5/325 mg TABLET PO PRN ×3 (01:12→21:45)
[2018-04-21] MEDS: Ipratropium/Albuterol Neb 3 ML IH SCH ×4 (03:49→21:32)
[2018-04-21] MEDS: *HR* OxyCODONE Immed Rel 5 MG TABLET PO PRN ×2 (06:14→17:42)
[2018-04-21] MEDS: *HR* Heparin 5,000 UNIT/ML VIAL SQ SCH ×3 (06:15→21:43)
[2018-04-21] MEDS: Insulin LISPRO 300 UNITS/3 ML VIAL SQ SCH ×4 (08:06→21:44)
[2018-04-21] MEDS: Aspirin Enteric Coated 81 MG Tablet PO SCH (08:07)
[2018-04-21] MEDS: Lisinopril 20 MG TABLET PO SCH (08:08)
[2018-04-21] MEDS: MethylPREDNISolone 40 MG/ML VIAL IVP SCH ×2 (08:08→21:44)
[2018-04-21] MEDS: Levofloxacin 750 MG/150 ML 750 MG/150 ML BAG IVPB SCH (08:08)
[2018-04-21] MEDS: Folic Acid 1 MG TABLET PO SCH (08:09)
--- NOTE | 2018-04-21 11:05 | Internal Med Progress Note ---
Date of Encounter: 04/21/18 Time of Encounter: 11:10 - Assessment and plan (1) Suicidal ideation Current Visit: Yes Status: Acute Assessment and plan: Apparently decannulated himself overnight on 04/20/18. Unclear if this was intentional or not. Communicating with patient is difficult due to trach, laryngectomy and says he is unable to write. He shakes his head no when asked if the had thoughts of harming himself at time of my exam. Continue one-to-one sitter. Psych consult (2) Tracheomalacia Current Visit: Yes Status: Acute Assessment and plan: presented after after trach was removed/dislodged. Trach replaced in ED. Tracheoscopy performed at bedside on 04/20/18 per ENT; no stenosis or granulation tissue noted and there was notable posterior tracheal wall collapse and tracheomalacia within the airway which is likely the cause of his dyspnea. ENT recommended modified barium swallow to assess for aspiration which was negative. Adequately oxygenating with 3 L via trach mask. (3) Acute and chronic respiratory failure with hypoxia Current Visit: No Status: Resolved Assessment and plan: Acute on chronic hypoxic respiratory failure secondary to dislodged tracheostomy , pneumonia and acute COPD exacerbation. Continue treating underlying causes. (4) Healthcare associated bacterial pneumonia Current Visit: Yes Status: Acute Assessment and plan: chest CTA with moderate RLL airspace disease concerning for possible pneumonia. Initially treated for possible aspiration pneumonia with his trach the ostomy however evaluated by ENT who noted aspiration less likely with history of total laryngectomy. Modified barium swallow negative for aspiration. ATB D escalated to Levaquin only. (5) COPD with acute exacerbation Current Visit: No Status: Acute Assessment and plan: Suspect acute exacerbation with SOB, wheezing and cough. Continue IV Levaquin, steroids and bronchodilators. (6) Leukocytosis Current Visit: Yes Status: Acute Assessment and plan: mild, secondary to COPD, pneumonia. Monitor repeat CBC. Qualifiers: Leukocytosis type: unspecified Qualified Code(s): D72.829 - Elevated white blood cell count, unspecified (7) Diabetes Current Visit: Yes Status: Acute Assessment and plan: per hx. SSI. Monitor blood sugar and titrate PRN Qualifiers: Diabetes mellitus type: type 2 Diabetes mellitus skilled nursing insulin use: with skilled nursing use Diabetes mellitus complication status: without complication Qualified Code(s): E11.9 - Type 2 diabetes mellitus without complications; Z79.4 - nursing home (current) use of insulin (8) DVT prophylaxis Current Visit: No Status: Acute Assessment and plan: heparin - Time Spent With Patient Total time spent is greater than 50% in coordination of care (as documented) at patient's floor/unit and/or counseling patient: - Subjective Interval history: Seen and examined at bedside. He just returned from modified swallow. He is difficult to medicate with given his tracheostomy total laryngectomy. He shakes his head yes when he has to be poor out his trach. When asked if he did not intentionally to harm himself he shakes his head no. Difficult to understand with he is trying to convey. Nursing staff at bedside. - Constitutional Vitals: Temp Pulse Resp BP Pulse Ox 97.9 F 76 16 130/69 100 04/21/18 09:00 04/21/18 09:00 04/21/18 10:55 04/21/18 09:00 04/21/18 10:55 General appearance: Present: A&O X 3, morbidly obese, no acute distress - Head Head exam: Present: atraumatic, normocephalic - Eye Eye exam: Present: PERRL, conjuntiva pink, sclera anicteric Pupils: Present: PERRL - Neck Neck exam general surgery: Present: supple, trachea midline. Absent: lymphadenopathy - Respiratory Respiratory exam: Present: CTAB, rhonchi (trach patent to CATM ). Absent: accessory muscle use, rales, wheezes - Cardiovascular Cardiovascular exam: Present: RRR, +S1, +S2. Absent: diastolic murmur, gallop, rubs, systolic murmur - GI/Abdominal GI/Abdominal exam: Present: normal bowel sounds, soft, no peritoneal signs. Absent: distended, tenderness - Extremities Exam Extremities exam: Present: warm, radial pulses palpable and symmetrical. Absent : calf tenderness, cyanotic, pedal edema - Neurological Exam Neurological exam: Present: CN II-XII intact, oriented X3, no focal deficits. Absent: pronater drift, facial droop, speech deficit - Skin Skin exam: Present: dry, intact Internal Medicine: Result - Labs CBC & Chem 7: 04/20/18 05:05 04/20/18 05:05 - Impressions Impressions Videofluoroscopic Swallow 04/21/18 08:30 IMPRESSION: Swallowing mechanism grossly within normal limits without evidence of aspiration. Please see separate speech pathology report for full discussion of findings and recommendations. D/ / 04/21/2018 09:29:29 Joanne Gr MD / marielle Interpreting Provider: Joanne Gr MD Consult Discharge Plan - Plan Referrals: NONE,PCP [Primary Care Provider] -
[2018-04-21] MEDS: 0.9 % Sodium Chloride 1,000 ML IVC SCH (14:54)
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
--- NOTE | 2018-04-21 17:32 | Event Note ---
Date of Encounter: 04/21/18 Time of Encounter: 17:30 MBS reviewed which showed no evidence of aspiration as expected due to hx of total laryngectomy. -Recommend continued use of laryngectomy tube or tracheostomy tube depending on needs for positive pressure ventilation. -If he needs any more extensive airway evaluation, recommend referral to the [facility] head and neck service. -ENT available as needed
[2018-04-21] MEDS: Insulin DETEMIR 100 UNIT/ML X5UNITS SQ SCH (21:44)
[2018-04-22] MEDS: Ipratropium/Albuterol Neb 3 ML IH SCH ×4 (03:50→22:07)
[2018-04-22] MEDS: *HR* OxyCODONE Immed Rel 5 MG TABLET PO PRN ×2 (06:23→17:32)
[2018-04-22] MEDS: *HR* Heparin 5,000 UNIT/ML VIAL SQ SCH ×3 (06:23→22:30)
[2018-04-22] MEDS: 0.9 % Sodium Chloride 1,000 ML IVC SCH ×2 (08:01→08:05)
[2018-04-22] MEDS: Insulin LISPRO 300 UNITS/3 ML VIAL SQ SCH ×4 (08:06→22:35)
[2018-04-22] MEDS: Levofloxacin 750 MG/150 ML 750 MG/150 ML BAG IVPB SCH (08:06)
[2018-04-22] MEDS: Lisinopril 20 MG TABLET PO SCH (08:07)
[2018-04-22] MEDS: Aspirin Enteric Coated 81 MG Tablet PO SCH (08:07)
[2018-04-22] MEDS: Folic Acid 1 MG TABLET PO SCH (08:07)
[2018-04-22] MEDS: MethylPREDNISolone 40 MG/ML VIAL IVP SCH ×2 (08:08→22:30)
--- NOTE | 2018-04-22 12:10 | Internal Med Progress Note ---
Date of Encounter: 04/22/18 Time of Encounter: 12:07 - Assessment and plan (1) Acute and chronic respiratory failure with hypoxia Current Visit: Yes Status: Resolved Assessment and plan: Acute on chronic hypoxic respiratory failure secondary to dislodged tracheostomy , pneumonia and acute COPD exacerbation. Continue treating underlying causes. (2) COPD with acute exacerbation Current Visit: Yes Status: Acute Assessment and plan: Suspect acute exacerbation with SOB, wheezing and cough. Continue IV Levaquin, steroids and bronchodilators. (3) DVT prophylaxis Current Visit: Yes Status: Acute Assessment and plan: heparin (4) Leukocytosis Current Visit: Yes Status: Acute Assessment and plan: mild, secondary to COPD, pneumonia. Monitor repeat CBC. Qualifiers: Leukocytosis type: unspecified Qualified Code(s): D72.829 - Elevated white blood cell count, unspecified (5) Diabetes Current Visit: Yes Status: Chronic Assessment and plan: per hx. SSI. Monitor blood sugar and titrate PRN Qualifiers: Diabetes mellitus type: type 2 Diabetes mellitus exterminator insulin use: with halfway use Diabetes mellitus complication status: without complication Qualified Code(s): E11.9 - Type 2 diabetes mellitus without complications; Z79.4 - [facility] (current) use of insulin (6) Tracheomalacia Current Visit: Yes Status: Acute Assessment and plan: presented after after trach was removed/dislodged. Trach replaced in ED. Tracheoscopy performed at bedside on 04/20/18 per ENT; no stenosis or granulation tissue noted and there was notable posterior tracheal wall collapse and tracheomalacia within the airway which is likely the cause of his dyspnea. ENT recommended modified barium swallow to assess for aspiration which was negative. Adequately oxygenating with 3 L via trach mask. ENT signed off Continue current management (7) Suicidal ideation Current Visit: Yes Status: Acute Assessment and plan: Apparently decannulated himself overnight on 04/20/18. Unclear if this was intentional or not. Communicating with patient is difficult due to trach, laryngectomy and says he is unable to write. He shakes his head no when asked if the had thoughts of harming himself at time of my exam. Continue one-to-one sitter. Psych consulted on admission Eval pending Continue sitter till psych eval (8) Healthcare associated bacterial pneumonia Current Visit: Yes Status: Acute Assessment and plan: chest CTA with moderate RLL airspace disease concerning for possible pneumonia. Initially treated for possible aspiration pneumonia with his trach the ostomy however evaluated by ENT who noted aspiration less likely with history of total laryngectomy. Modified barium swallow negative for aspiration. ATB Descalated to Levaquin only, continue same - Time Spent With Patient Total time spent is greater than 50% in coordination of care (as documented) at patient's floor/unit and/or counseling patient: - Subjective Interval history: Seen and evaluated at bedside Still with sitter Psych eval pending ENT review noted, no aspiration on VFS Hemodynamically stable on current meds No new complains - Constitutional Vitals: Temp Pulse Resp BP Pulse Ox 97.0 F L 59 20 136/78 98 04/22/18 10:00 04/22/18 10:00 04/22/18 10:34 04/22/18 10:00 04/22/18 10:34 General appearance: Present: A&O X 3, pleasant, no acute distress - Head Head exam: Present: atraumatic, normocephalic - Eye Eye exam: Present: PERRL, conjuntiva pink, sclera anicteric Pupils: Present: PERRL - ENT ENT exam: Present: mucous membranes moist - Neck Additional comments: trach - Respiratory Respiratory exam: Present: rhonchi - Cardiovascular Cardiovascular exam: Present: RRR, +S1, +S2. Absent: diastolic murmur, gallop, rubs, systolic murmur - GI/Abdominal GI/Abdominal exam: Present: normal bowel sounds, soft, no peritoneal signs. Absent: distended, tenderness - Extremities Exam Extremities exam: Present: warm, radial pulses palpable and symmetrical. Absent : calf tenderness, cyanotic, pedal edema - Neurological Exam Neurological exam: Present: alert, CN II-XII intact, oriented X3, no focal deficits. Absent: pronater drift, facial droop, speech deficit - Skin Skin exam: Present: dry, intact Internal Medicine: Result - Labs CBC & Chem 7: 04/20/18 05:05 04/20/18 05:05 Consult Discharge Plan - Plan Referrals: NONE,PCP [Primary Care Provider] -
[2018-04-22] MEDS: *HR* HYDROcodone/Acet 5/325 mg TABLET PO PRN ×2 (12:11→23:02)
[2018-04-22] MEDS: Insulin DETEMIR 100 UNIT/ML X5UNITS SQ SCH (22:37)
[2018-04-23] MEDS: 0.9 % Sodium Chloride 1,000 ML IVC SCH ×2 (02:52→23:06)
[2018-04-23] MEDS: Ipratropium/Albuterol Neb 3 ML IH SCH ×4 (04:30→22:02)
[2018-04-23 05:54] LABS: Basophils % 0.2 %; Hematocrit 33.7 % (37.5-50.1); Hemoglobin 10.9 g/dL (12.9-16.9); Immature Granulocytes % 3.8 % (0-4); Lymphocytes # 2.2 K/mcL (0.6-4.6); Lymphocytes % 12.8 %; Mean Corpuscular HGB Conc 32.3 g/dL (31.6-35.5); Mean Corpuscular Hemoglobin 30.3 pg (28.0-33.3); Mean Corpuscular Volume 93.6 fL (83.0-100.0); Monocytes # 0.8 K/mcL (0.0-1.3); Monocytes % 4.4 %; Neutrophils # 13.5 K/mcL (1.6-8.9); Nucleated Red Blood Cells 0.1 /100 WBC (0); Platelet Count 320 K/mcL (140-400); Red Cell Distribution Width 14.1 % (11.5-14.5); Segmented Neutrophils % 78.8 %
[2018-04-23 06:13] LABS: BUN/Creatinine Ratio 25 (6-26); Blood Urea Nitrogen 17 mg/dL (8-23); Calcium 8.7 mg/dL (8.6-10.3); Carbon Dioxide 27 mEq/L (23-29); Chloride 103 mEq/L (98-107); Glucose 213 mg/dL (70-105); Osmolality,Calculated 292 (280-300); Potassium 4.5 mEq/L (3.5-5.1); Sodium 137 mEq/L (136-145); eGFR For African Americans > 60 (> 60); eGFR For Non-African Americans > 60 (> 60)
[2018-04-23] MEDS: *HR* Heparin 5,000 UNIT/ML VIAL SQ SCH ×3 (06:41→22:52)
[2018-04-23] MEDS: *HR* OxyCODONE Immed Rel 5 MG TABLET PO PRN ×2 (06:41→17:13)
[2018-04-23] MEDS: predniSONE 20 MG TABLET PO SCH (08:55)
[2018-04-23] MEDS: Lisinopril 20 MG TABLET PO SCH (08:55)
[2018-04-23] MEDS: Aspirin Enteric Coated 81 MG Tablet PO SCH (08:55)
[2018-04-23] MEDS: Folic Acid 1 MG TABLET PO SCH (08:55)
[2018-04-23] MEDS: Levofloxacin 750 MG/150 ML 750 MG/150 ML BAG IVPB SCH (08:56)
[2018-04-23] MEDS: Insulin LISPRO 300 UNITS/3 ML VIAL SQ SCH ×4 (08:56→22:51)
--- NOTE | 2018-04-23 11:35 | Internal Med Progress Note ---
Date of Encounter: 04/23/18 Time of Encounter: 11:34 - Assessment and plan (1) Acute and chronic respiratory failure with hypoxia Current Visit: Yes Status: Resolved Assessment and plan: Acute on chronic hypoxic respiratory failure secondary to dislodged tracheostomy , pneumonia and acute COPD exacerbation. Continue treating underlying causes. (2) COPD with acute exacerbation Current Visit: Yes Status: Acute Assessment and plan: Suspect acute exacerbation with SOB, wheezing and cough. Change levaquin to po, continue prednisone with plan to taper Continue duonebs (3) DVT prophylaxis Current Visit: Yes Status: Acute Assessment and plan: heparin (4) Leukocytosis Current Visit: Yes Status: Acute Assessment and plan: mild, secondary to COPD, pneumonia. Uptrending possibly due to IV steroids Change to po No fever Continue to monitor Qualifiers: Leukocytosis type: unspecified Qualified Code(s): D72.829 - Elevated white blood cell count, unspecified (5) Diabetes Current Visit: Yes Status: Chronic Assessment and plan: per hx. SSI. Monitor blood sugar and titrate PRN Qualifiers: Diabetes mellitus type: type 2 Diabetes mellitus fpc insulin use: with fpc use Diabetes mellitus complication status: without complication Qualified Code(s): E11.9 - Type 2 diabetes mellitus without complications; Z79.4 - [facility]P (current) use of insulin (6) Tracheomalacia Current Visit: Yes Status: Acute Assessment and plan: presented after after trach was removed/dislodged. Trach replaced in ED. Tracheoscopy performed at bedside on 04/20/18 per ENT; no stenosis or granulation tissue noted and there was notable posterior tracheal wall collapse and tracheomalacia within the airway which is likely the cause of his dyspnea. ENT recommended modified barium swallow to assess for aspiration which was negative. Adequately oxygenating with 3 L via trach mask. ENT signed off Continue current management (7) Suicidal ideation Current Visit: Yes Status: Acute Assessment and plan: Apparently decannulated himself overnight on 04/20/18. Unclear if this was intentional or not. Continue one-to-one sitter. Psych eval noted, continue precautions and to discharge to geriatric psych unit when stable (8) Healthcare associated bacterial pneumonia Current Visit: Yes Status: Acute Assessment and plan: chest CTA with moderate RLL airspace disease concerning for possible pneumonia. Initially treated for possible aspiration pneumonia with his trach the ostomy however evaluated by ENT who noted aspiration less likely with history of total laryngectomy. Modified barium swallow negative for aspiration. Continue levaquin - Time Spent With Patient Total time spent is greater than 50% in coordination of care (as documented) at patient's floor/unit and/or counseling patient: - Subjective Interval history: Seen and evaluated at bedside Still with sitter Psych eval noted ENT review noted, no aspiration on VFS Hemodynamically stable on current meds No new complains For transfer to [facility] when bed is available Change meds to po - Constitutional Vitals: Temp Pulse Resp BP Pulse Ox 98.6 F 72 16 110/67 94 04/23/18 11:05 04/23/18 11:05 04/23/18 11:05 04/23/18 11:05 04/23/18 11:05 General appearance: Present: A&O X 3, pleasant, no acute distress - Head Head exam: Present: atraumatic, normocephalic - Eye Eye exam: Present: PERRL, conjuntiva pink, sclera anicteric Pupils: Present: PERRL - Neck Neck exam general surgery: Present: supple, trachea midline. Absent: lymphadenopathy Additional comments: trach clean dry - Respiratory Respiratory exam: Present: CTAB. Absent: accessory muscle use, rales, rhonchi, wheezes - Cardiovascular Cardiovascular exam: Present: RRR, +S1, +S2. Absent: diastolic murmur, gallop, rubs, systolic murmur - GI/Abdominal GI/Abdominal exam: Present: normal bowel sounds, soft, no peritoneal signs. Absent: distended, tenderness - Extremities Exam Extremities exam: Present: warm, radial pulses palpable and symmetrical. Absent : calf tenderness, cyanotic, pedal edema - Neurological Exam Neurological exam: Present: alert, CN II-XII intact, oriented X3, no focal deficits. Absent: pronater drift, facial droop, speech deficit - Skin Skin exam: Present: dry, intact Internal Medicine: Result - Labs CBC & Chem 7: 04/23/18 05:26 04/23/18 05:26 Labs: Short CBC 04/23/18 Range/Units 05:26 WBC 17.1 H (4.3-11.1) K/mcL Hgb 10.9 L (12.9-16.9) g/dL Hct 33.7 L (37.5-50.1) % Plt Count 320 (140-400) K/mcL Neutrophils # 13.5 H (1.6-8.9) K/mcL BMP 04/23/18 05:26 Sodium 137 Potassium 4.5 Chloride 103 Carbon Dioxide 27 BUN 17 Creatinine 0.67 L Glucose 213 H Calcium 8.7 Consult Discharge Plan - Plan Additional Instructions: Discussed with him the possibility taken antidepressant medications in the future targeting his depressive symptoms. He did not respond to that discussion. Acknowledged to him the practicality of his health issues and his inability to care for himself with all his medical issues contributing to his depression. He is not able to live independently on his own. He currently is not suicidal but does have history of depression with suicidal thoughts. Patient would benefit from treatment of his depression on a [facility] unit where they could address his medical issues and hopefully improve his quality of life, which would in turn potentially improve his mood. It is recommended that he remain on suicide precautions as a monitoring secondary to his fleeting thoughts of suicide, until such time as he can be discharged to an inpatient [facility] unit for further monitoring and treatment. Referrals: NONE,PCP [Primary Care Provider] -
[2018-04-23] MEDS: *HR* HYDROcodone/Acet 5/325 mg TABLET PO PRN ×2 (12:48→22:52)
[2018-04-23] MEDS: Insulin DETEMIR 100 UNIT/ML X5UNITS SQ SCH (22:51)
[2018-04-24] MEDS: Ipratropium/Albuterol Neb 3 ML IH SCH ×4 (04:20→23:11)
[2018-04-24] MEDS: *HR* Heparin 5,000 UNIT/ML VIAL SQ SCH ×3 (05:52→21:35)
[2018-04-24 06:40] LABS: Basophils # 0.1 K/mcL (0.0-0.2); Basophils % 0.4 %; Eosinophils # 0.1 K/mcL (0.0-0.6); Eosinophils % 0.3 %; Hematocrit 34.1 % (37.5-50.1); Hemoglobin 11.2 g/dL (12.9-16.9); Immature Granulocytes % 4.5 % (0-4); Lymphocytes # 4.9 K/mcL (0.6-4.6); Lymphocytes % 21.8 %; Mean Corpuscular HGB Conc 32.8 g/dL (31.6-35.5); Mean Corpuscular Hemoglobin 30.4 pg (28.0-33.3); Mean Corpuscular Volume 92.4 fL (83.0-100.0); Monocytes # 1.7 K/mcL (0.0-1.3); Monocytes % 7.7 %; Neutrophils # 14.7 K/mcL (1.6-8.9); Nucleated Red Blood Cells 0.2 /100 WBC (0); Platelet Count 332 K/mcL (140-400); Red Blood Count 3.69 M/mcL (4.19-5.50); Red Cell Distribution Width 14.3 % (11.5-14.5); Segmented Neutrophils % 65.3 %
[2018-04-24] MEDS: *HR* HYDROcodone/Acet 5/325 mg TABLET PO PRN (06:57)
[2018-04-24 06:58] LABS: BUN/Creatinine Ratio 32 (6-26); Blood Urea Nitrogen 20 mg/dL (8-23); Calcium 9.2 mg/dL (8.6-10.3); Carbon Dioxide 28 mEq/L (23-29); Chloride 102 mEq/L (98-107); Glucose 150 mg/dL (70-105); Osmolality,Calculated 289 (280-300); Potassium 3.9 mEq/L (3.5-5.1); Sodium 137 mEq/L (136-145); eGFR For African Americans > 60 (> 60); eGFR For Non-African Americans > 60 (> 60)
[2018-04-24] MEDS: Folic Acid 1 MG TABLET PO SCH (08:46)
[2018-04-24] MEDS: Lisinopril 20 MG TABLET PO SCH (08:47)
[2018-04-24] MEDS: Insulin LISPRO 300 UNITS/3 ML VIAL SQ SCH ×4 (08:47→21:36)
[2018-04-24] MEDS: Aspirin Enteric Coated 81 MG Tablet PO SCH (08:47)
[2018-04-24] MEDS: predniSONE 20 MG TABLET PO SCH (08:47)
[2018-04-24] MEDS: levoFLOXacin 750 MG TABLET PO SCH (08:47)
--- NOTE | 2018-04-24 09:59 | Internal Med Progress Note ---
Date of Encounter: 04/24/18 Time of Encounter: 09:59 - Assessment and plan (1) Acute and chronic respiratory failure with hypoxia Current Visit: Yes Status: Resolved Assessment and plan: Acute on chronic hypoxic respiratory failure secondary to dislodged tracheostomy , pneumonia and acute COPD exacerbation. Continue treating underlying causes. (2) COPD with acute exacerbation Current Visit: Yes Status: Acute Assessment and plan: Suspect acute exacerbation with SOB, wheezing and cough. Change levaquin to po, continue prednisone with plan to taper Continue duonebs (3) DVT prophylaxis Current Visit: Yes Status: Acute Assessment and plan: heparin (4) Leukocytosis Current Visit: Yes Status: Acute Assessment and plan: mild, secondary to COPD, pneumonia. Uptrending possibly due to IV steroids continue prednisone No fever Continue to monitor Qualifiers: Leukocytosis type: unspecified Qualified Code(s): D72.829 - Elevated white blood cell count, unspecified (5) Diabetes Current Visit: Yes Status: Chronic Assessment and plan: per hx. SSI. Monitor blood sugar and titrate PRN Qualifiers: Diabetes mellitus type: type 2 Diabetes mellitus alf insulin use: with vermin exterminator use Diabetes mellitus complication status: without complication Qualified Code(s): E11.9 - Type 2 diabetes mellitus without complications; Z79.4 - vermin exterminator (current) use of insulin (6) Tracheomalacia Current Visit: Yes Status: Acute Assessment and plan: presented after after trach was removed/dislodged. Trach replaced in ED. Tracheoscopy performed at bedside on 04/20/18 per ENT; no stenosis or granulation tissue noted and there was notable posterior tracheal wall collapse and tracheomalacia within the airway which is likely the cause of his dyspnea. ENT recommended modified barium swallow to assess for aspiration which was negative. Adequately oxygenating with 3 L via trach mask. ENT signed off Continue current management (7) Suicidal ideation Current Visit: Yes Status: Acute Assessment and plan: Apparently decannulated himself overnight on 04/20/18. Unclear if this was intentional or not. Continue one-to-one sitter. Psych eval noted, per SW, no facility is willing to take the patient Reconsulted psych this a.m, pending eval (8) Healthcare associated bacterial pneumonia Current Visit: Yes Status: Acute Assessment and plan: chest CTA with moderate RLL airspace disease concerning for possible pneumonia. Initially treated for possible aspiration pneumonia with his trach the ostomy however evaluated by ENT who noted aspiration less likely with history of total laryngectomy. Modified barium swallow negative for aspiration. Continue levaquin - Time Spent With Patient Total time spent is greater than 50% in coordination of care (as documented) at patient's floor/unit and/or counseling patient: - Subjective Interval history: Seen and evaluated at bedside Still with sitter Psych eval noted ENT review noted, no aspiration on VFS Hemodynamically stable on current meds SW eval noted,patient is unable to get a bed at a geriatric psych unit Psych reconsulted this a.m Patient has no new complains - Constitutional Vitals: Temp Pulse Resp BP Pulse Ox 98.2 F 76 18 140/80 97 04/24/18 08:00 04/24/18 08:00 04/24/18 09:22 04/24/18 08:00 04/24/18 09:22 General appearance: Present: A&O X 3, pleasant, no acute distress - Head Head exam: Present: atraumatic, normocephalic - Eye Eye exam: Present: PERRL, conjuntiva pink, sclera anicteric Pupils: Present: PERRL - Neck Neck exam general surgery: Present: supple, trachea midline. Absent: lymphadenopathy Additional comments: stoma with indwelling sunction, copious secretions noted - Respiratory Respiratory exam: Absent: accessory muscle use, rales, rhonchi, wheezes Additional comments: transmitted breath sounds - Cardiovascular Cardiovascular exam: Present: RRR, +S1, +S2. Absent: diastolic murmur, gallop, rubs, systolic murmur - GI/Abdominal GI/Abdominal exam: Present: normal bowel sounds, soft, no peritoneal signs. Absent: distended, tenderness - Extremities Exam Extremities exam: Present: warm, radial pulses palpable and symmetrical. Absent : calf tenderness, cyanotic, pedal edema - Neurological Exam Neurological exam: Present: alert, CN II-XII intact, oriented X3, no focal deficits. Absent: pronater drift, facial droop, speech deficit - Skin Skin exam: Present: dry, intact Internal Medicine: Result - Labs CBC & Chem 7: 04/24/18 06:03 04/24/18 06:03 Labs: Short CBC 04/24/18 Range/Units 06:03 WBC 22.5 H (4.3-11.1) K/mcL Hgb 11.2 L (12.9-16.9) g/dL Hct 34.1 L (37.5-50.1) % Plt Count 332 (140-400) K/mcL Neutrophils # 14.7 H (1.6-8.9) K/mcL BMP 04/24/18 06:03 Sodium 137 Potassium 3.9 Chloride 102 Carbon Dioxide 28 BUN 20 Creatinine 0.62 L Glucose 150 H Calcium 9.2 Consult Discharge Plan - Plan Additional Instructions: Discussed with him the possibility taken antidepressant medications in the future targeting his depressive symptoms. He did not respond to that discussion. Acknowledged to him the practicality of his health issues and his inability to care for himself with all his medical issues contributing to his depression. He is not able to live independently on his own. He currently is not suicidal but does have history of depression with suicidal thoughts. Patient would benefit from treatment of his depression on a [facility] where they could address his medical issues and hopefully improve his quality of life, which would in turn potentially improve his mood. It is recommended that he remain on suicide precautions as a monitoring secondary to his fleeting thoughts of suicide, until such time as he can be discharged to an inpatient [facility] for further monitoring and treatment. Referrals: NONE,PCP [Primary Care Provider] -
[2018-04-24] MEDS: *HR* OxyCODONE Immed Rel 5 MG TABLET PO PRN ×2 (11:26→21:36)
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
[2018-04-24] MEDS: Insulin DETEMIR 100 UNIT/ML X5UNITS SQ SCH (21:35)
[2018-04-25] MEDS: *HR* HYDROcodone/Acet 5/325 mg TABLET PO PRN ×3 (02:07→20:16)
[2018-04-25] MEDS: Ipratropium/Albuterol Neb 3 ML IH SCH ×4 (05:07→22:02)
[2018-04-25 05:32] LABS: Basophils # 0.1 K/mcL (0.0-0.2); Basophils % 0.3 %; Eosinophils # 0.1 K/mcL (0.0-0.6); Eosinophils % 0.5 %; Hematocrit 34.4 % (37.5-50.1); Immature Granulocytes % 4.2 % (0-4); Lymphocytes # 5.4 K/mcL (0.6-4.6); Lymphocytes % 23.9 %; Mean Corpuscular Hemoglobin 30.1 pg (28.0-33.3); Mean Platelet Volume 10.1 fL (9.4-12.4); Monocytes # 1.8 K/mcL (0.0-1.3); Monocytes % 7.9 %; Neutrophils # 14.2 K/mcL (1.6-8.9); Nucleated Red Blood Cells 0.3 /100 WBC (0); Platelet Count 302 K/mcL (140-400); Red Blood Count 3.66 M/mcL (4.19-5.50); Red Cell Distribution Width 14.6 % (11.5-14.5); Segmented Neutrophils % 63.2 %
[2018-04-25] MEDS: *HR* Heparin 5,000 UNIT/ML VIAL SQ SCH ×3 (06:09→21:49)
[2018-04-25] MEDS: *HR* OxyCODONE Immed Rel 5 MG TABLET PO PRN ×2 (07:57→16:28)
[2018-04-25] MEDS: Aspirin Enteric Coated 81 MG Tablet PO SCH (07:58)
[2018-04-25] MEDS: levoFLOXacin 750 MG TABLET PO SCH (07:58)
[2018-04-25] MEDS: Folic Acid 1 MG TABLET PO SCH (07:58)
[2018-04-25] MEDS: Insulin LISPRO 300 UNITS/3 ML VIAL SQ SCH ×4 (07:59→20:23)
[2018-04-25] MEDS: predniSONE 20 MG TABLET PO SCH (07:59)
[2018-04-25] MEDS: Lisinopril 20 MG TABLET PO SCH (07:59)
--- NOTE | 2018-04-25 19:06 | Internal Med Progress Note ---
Date of Encounter: 04/26/18 Time of Encounter: 19:04 - Assessment and plan (1) Pneumonia Current Visit: No Status: Acute Assessment and plan: His chest x-ray from yesterday showed a right-sided atelectasis or infiltrate. It is associated with WBC count of 22.5 thousand. He gets ciprofloxacin and metronidazole. He gets prednisone at 40 mg daily. Qualifiers: Pneumonia type: aspiration pneumonia Aspiration pneumonia type: due to gastric secretions Laterality: right Lung location: lower lobe of lung Qualified Code(s): J69.0 - Pneumonitis due to inhalation of food and vomit (2) COPD with acute exacerbation Current Visit: Yes Status: Acute Assessment and plan: Somewhat better. He gets ciprofloxacin and metronidazole. He gets prednisone at 40 mg by mouth daily and nebulizer treatments with DuoNeb. (3) Acute respiratory failure with hypoxia Current Visit: Yes Status: Acute Assessment and plan: This is secondary to the problems mentioned above. He does have tracheostomy tube. (4) T2DM (type 2 diabetes mellitus) Current Visit: Yes Status: Chronic Assessment and plan: His glucose is under fair control. We will continue Levemir and when necessary Humalog. He is on sugar-free diet. Qualifiers: Diabetes mellitus cma insulin use: unspecified cma insulin use status Diabetes mellitus complication status: without complication Qualified Code(s): E11.9 - Type 2 diabetes mellitus without complications (5) Suicidal ideation Current Visit: Yes Status: Resolved Assessment and plan: He currently denies suicidal ideations. Psychiatry suggesting placement at geriatric psych unit. 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 He is not showing any distress. He is using trach collar oxygen at 5 L/m. He does have mild cough but not wheezing. Denies chest pain. Denies abdominal pain, nausea and vomiting. He makes good amounts of urine. The patient denies suicidal thoughts. See notes from psychiatry. - Constitutional Vitals: Temp Pulse Resp BP Pulse Ox 97.9 F 90 16 114/84 96 04/25/18 15:25 04/25/18 15:25 04/25/18 15:50 04/25/18 15:25 04/25/18 15:50 General appearance: Present: A&O X 3, pleasant, no acute distress Exam: He does have tracheostomy tube. - Respiratory Respiratory exam: Present: CTAB. Absent: accessory muscle use, rales, rhonchi, wheezes - Cardiovascular Cardiovascular exam: Present: RRR, +S1, +S2. Absent: diastolic murmur, gallop, rubs, systolic murmur - GI/Abdominal GI/Abdominal exam: Present: normal bowel sounds, soft, no peritoneal signs. Absent: distended, tenderness - Skin Skin exam: Present: dry, intact Internal Medicine: Result - Labs CBC & Chem 7: 04/26/18 15:33 04/24/18 06:03 Labs: Short CBC 04/25/18 Range/Units 05:04 WBC 22.5 H (4.3-11.1) K/mcL Hgb 11.0 L (12.9-16.9) g/dL Hct 34.4 L (37.5-50.1) % Plt Count 302 (140-400) K/mcL Neutrophils # 14.2 H (1.6-8.9) K/mcL Consult Discharge Plan - Plan Additional Instructions: Discussed with him the possibility taken antidepressant medications in the future targeting his depressive symptoms. He did not respond to that discussion. Acknowledged to him the practicality of his health issues and his inability to care for himself with all his medical issues contributing to his depression. He is not able to live independently on his own. He currently is not suicidal but does have history of depression with suicidal thoughts. Patient would benefit from treatment of his depression on a [facility] where they could address his medical issues and hopefully improve his quality of life, which would in turn potentially improve his mood. It is recommended that he remain on suicide precautions as a monitoring secondary to his fleeting thoughts of suicide, until such time as he can be discharged to an inpatient [facility] for further monitoring and treatment. Referrals: NONE,PCP [Primary Care Provider] -
[2018-04-25] MEDS: Insulin DETEMIR 100 UNIT/ML X5UNITS SQ SCH (20:22)
[2018-04-26] MEDS: metroNIDAZOLE 500 MG TABLET PO SCH ×4 (00:43→21:57)
[2018-04-26] MEDS: *HR* OxyCODONE Immed Rel 5 MG TABLET PO PRN ×3 (00:47→18:24)
[2018-04-26] MEDS: Ipratropium/Albuterol Neb 3 ML IH SCH ×4 (03:13→21:46)
[2018-04-26] MEDS: *HR* HYDROcodone/Acet 5/325 mg TABLET PO PRN ×3 (03:35→21:57)
[2018-04-26] MEDS: *HR* Heparin 5,000 UNIT/ML VIAL SQ SCH ×3 (05:12→22:16)
[2018-04-26] MEDS: Aspirin Enteric Coated 81 MG Tablet PO SCH (09:10)
[2018-04-26] MEDS: Folic Acid 1 MG TABLET PO SCH (09:11)
[2018-04-26] MEDS: predniSONE 20 MG TABLET PO SCH (09:11)
[2018-04-26] MEDS: Lisinopril 20 MG TABLET PO SCH (09:12)
[2018-04-26] MEDS: Insulin LISPRO 300 UNITS/3 ML VIAL SQ SCH ×4 (09:15→21:57)
[2018-04-26 15:47] LABS: Hematocrit 35.6 % (37.5-50.1); Hemoglobin 11.3 g/dL (12.9-16.9); Mean Corpuscular HGB Conc 31.7 g/dL (31.6-35.5); Mean Corpuscular Hemoglobin 30.5 pg (28.0-33.3); Mean Corpuscular Volume 96.2 fL (83.0-100.0); Mean Platelet Volume 9.7 fL (9.4-12.4); Platelet Count 282 K/mcL (140-400)
--- NOTE | 2018-04-26 21:04 | Internal Med Progress Note ---
Date of Encounter: 04/26/18 Time of Encounter: 21:04 - Assessment and plan (1) Pneumonia Current Visit: No Status: Acute Assessment and plan: Getting better. We will continue ciprofloxacin and metronidazole. Qualifiers: Pneumonia type: aspiration pneumonia Aspiration pneumonia type: due to gastric secretions Laterality: right Lung location: lower lobe of lung Qualified Code(s): J69.0 - Pneumonitis due to inhalation of food and vomit (2) COPD with acute exacerbation Current Visit: Yes Status: Acute Assessment and plan: He gets antibiotics, as mentioned above. He gets prednisone at 40 mg daily and nebulizer treatments with DuoNeb. (3) Acute respiratory failure with hypoxia Current Visit: Yes Status: Acute (4) T2DM (type 2 diabetes mellitus) Current Visit: Yes Status: Chronic Assessment and plan: Under fair control. Continue sugar-free diet and Levemir with Humalog. 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 Psychiatry is advising geriatric psych unit. 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 He has tracheostomy tube. He uses supplemental oxygen, as mentioned by me yesterday. Denies chest pain. Denies abdominal pain, nausea and vomiting. He has normal urination. - Constitutional Vitals: Temp Pulse Resp BP Pulse Ox 98.0 F 86 18 154/69 94 04/26/18 18:40 04/26/18 18:40 04/26/18 18:40 04/26/18 18:40 04/26/18 18:42 General appearance: Present: A&O X 3, pleasant, no acute distress - Respiratory Respiratory exam: Present: CTAB. Absent: accessory muscle use, rales, rhonchi, wheezes - Cardiovascular Cardiovascular exam: Present: RRR, +S1, +S2. Absent: diastolic murmur, gallop, rubs, systolic murmur - GI/Abdominal GI/Abdominal exam: Present: normal bowel sounds, soft, no peritoneal signs. Absent: distended, tenderness - Skin Skin exam: Present: dry, intact Internal Medicine: Result - Labs CBC & Chem 7: 04/26/18 15:33 04/24/18 06:03 Labs: Short CBC 04/26/18 Range/Units 15:33 WBC 22.4 H (4.3-11.1) K/mcL Hgb 11.3 L (12.9-16.9) g/dL Hct 35.6 L (37.5-50.1) % Plt Count 282 (140-400) K/mcL - Impressions Impressions Chest X-Ray 04/25/18 22:43 IMPRESSION: Increased right basilar atelectasis or pneumonia. D/ / Navneet Cartwright MD / Navneet Cartwright MD Interpreting Provider: Navneet Cartwright MD Consult Discharge Plan - Plan Additional Instructions: Discussed with him the possibility taken antidepressant medications in the future targeting his depressive symptoms. He did not respond to that discussion. Acknowledged to him the practicality of his health issues and his inability to care for himself with all his medical issues contributing to his depression. He is not able to live independently on his own. He currently is not suicidal but does have history of depression with suicidal thoughts. Patient would benefit from treatment of his depression on a [facility] where they could address his medical issues and hopefully improve his quality of life, which would in turn potentially improve his mood. It is recommended that he remain on suicide precautions as a monitoring secondary to his fleeting thoughts of suicide, until such time as he can be discharged to an inpatient [facility] for further monitoring and treatment. Referrals: NONE,PCP [Primary Care Provider] -
[2018-04-26] MEDS: Insulin DETEMIR 100 UNIT/ML X5UNITS SQ SCH (21:57)
[2018-04-27] MEDS: Ipratropium/Albuterol Neb 3 ML IH SCH ×4 (04:17→21:21)
[2018-04-27 04:32] LABS: Basophils # 0.1 K/mcL (0.0-0.2); Basophils % 0.2 %; Eosinophils # 0.1 K/mcL (0.0-0.6); Eosinophils % 0.5 %; Hematocrit 34.5 % (37.5-50.1); Immature Granulocytes % 1.9 % (0-4); Lymphocytes % 17.6 %; Mean Corpuscular HGB Conc 31.9 g/dL (31.6-35.5); Mean Corpuscular Hemoglobin 30.6 pg (28.0-33.3); Mean Corpuscular Volume 95.8 fL (83.0-100.0); Mean Platelet Volume 10.1 fL (9.4-12.4); Monocytes # 1.5 K/mcL (0.0-1.3); Monocytes % 6.6 %; Neutrophils # 16.7 K/mcL (1.6-8.9); Platelet Count 287 K/mcL (140-400); Segmented Neutrophils % 73.2 %
[2018-04-27 04:41] LABS: Alanine Aminotransferase 15 Units/L (7-52); Albumin 3.3 g/dL (3.5-5.7); Albumin/Globulin Ratio 1.3 (1.1-2.2); Alkaline Phosphatase 108 Units/L (34-104); Aspartate Amino Transferase 11 Units/L (13-39); BUN/Creatinine Ratio 32 (6-26); Bilirubin,Total 0.2 mg/dL (0.3-1.0); Blood Urea Nitrogen 22 mg/dL (8-23); Carbon Dioxide 32 mEq/L (23-29); Chloride 102 mEq/L (98-107); Globulin 2.5 g/dL (2.4-3.5); Glucose 157 mg/dL (70-105); Osmolality,Calculated 297 (280-300); Potassium 5.4 mEq/L (3.5-5.1); Sodium 140 mEq/L (136-145); Total Protein 5.8 g/dL (6.4-8.9); eGFR For African Americans > 60 (> 60); eGFR For Non-African Americans > 60 (> 60)
[2018-04-27] MEDS: *HR* Heparin 5,000 UNIT/ML VIAL SQ SCH ×2 (05:23→15:12)
[2018-04-27] MEDS: *HR* OxyCODONE Immed Rel 5 MG TABLET PO PRN ×2 (05:30→15:12)
[2018-04-27] MEDS ORDERED: Haloperidol Lactate 5 MG/ML VIAL IVP ONE (06:04)
[2018-04-27] MEDS ORDERED: Haloperidol Lactate 5 MG/ML VIAL ONE (06:09)
[2018-04-27] MEDS ORDERED: Ondansetron 4 MG/2 ML VIAL IVP PRN (06:48)
[2018-04-27] MEDS: Insulin LISPRO 300 UNITS/3 ML VIAL SQ SCH ×4 (08:44→23:09)
[2018-04-27] MEDS: Folic Acid 1 MG TABLET PO SCH (08:45)
[2018-04-27] MEDS: Lisinopril 20 MG TABLET PO SCH (08:45)
[2018-04-27] MEDS: metroNIDAZOLE 500 MG TABLET PO SCH ×2 (08:45→15:11)
[2018-04-27] MEDS: Aspirin Enteric Coated 81 MG Tablet PO SCH (08:46)
[2018-04-27] MEDS: *HR* HYDROcodone/Acet 5/325 mg TABLET PO PRN (08:46)
[2018-04-27] MEDS: predniSONE 20 MG TABLET PO SCH (08:47)
--- NOTE | 2018-04-27 12:52 | Internal Med Progress Note ---
Date of Encounter: 04/27/18 Time of Encounter: 12:50 - Assessment and plan (1) Acute and chronic respiratory failure with hypoxia Current Visit: Yes Status: Resolved Assessment and plan: Acute on chronic hypoxic respiratory failure secondary to dislodged tracheostomy , pneumonia and acute COPD exacerbation. Resolved Continue O2 at home dose with trach collar (2) COPD with acute exacerbation Current Visit: Yes Status: Resolved Assessment and plan: Completed course of evaquin Discontinue prednisone (3) DVT prophylaxis Current Visit: Yes Status: Acute Assessment and plan: heparin (4) Leukocytosis Current Visit: Yes Status: Acute Assessment and plan: mild, secondary to COPD, pneumonia. U Afebrile, no new symptoms Discontinue prednisone and observe Qualifiers: Leukocytosis type: unspecified Qualified Code(s): D72.829 - Elevated white blood cell count, unspecified (5) Diabetes Current Visit: Yes Status: Chronic Assessment and plan: per hx. SSI. 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 Trach replaced in ED. Tracheoscopy performed at bedside on 04/20/18 per ENT; no stenosis or granulation tissue noted and there was notable posterior tracheal wall collapse and tracheomalacia within the airway which is likely the cause of his dyspnea. ENT recommended modified barium swallow to assess for aspiration which was negative. Adequately oxygenating with 3 L via trach mask. ENT signed off Continue current management (7) Suicidal ideation Current Visit: Yes Status: Resolved Assessment and plan: Apparently decannulated himself overnight on 04/20/18. Unclear if this was intentional or not. Continue one-to-one sitter. Psych eval noted, per SW, no facility is willing to take the patient Reconsulted psych 04/23, review noted, discontinue sitter (8) Healthcare associated bacterial pneumonia Current Visit: Yes Status: Acute Assessment and plan: chest CTA with moderate RLL airspace disease concerning for possible pneumonia. Initially treated for possible aspiration pneumonia with his trach the ostomy however evaluated by ENT who noted aspiration less likely with history of total laryngectomy. Modified barium swallow negative for aspiration. Completed course of levaquin - Time Spent With Patient Total time spent is greater than 50% in coordination of care (as documented) at patient's floor/unit and/or counseling patient: - Subjective Interval history: Seen and evaluated at bedside Still with sitter Psych eval noted-states to monitor patient without sitter as patient is not suidical Will discontinue sitter SW working on placement No new complains ENT review noted, no aspiration on VFS Hemodynamically stable on current meds - Constitutional Vitals: Temp Pulse Resp BP Pulse Ox 98.2 F 65 16 117/66 95 04/27/18 11:00 04/27/18 11:00 04/27/18 11:00 04/27/18 11:00 04/27/18 11:00 General appearance: Present: A&O X 3, pleasant, no acute distress - Eye Eye exam: Present: PERRL, conjuntiva pink, sclera anicteric Pupils: Present: PERRL - Neck Additional comments: trach,. very minimal clear discharge - Respiratory Respiratory exam: Present: CTAB. Absent: accessory muscle use, rales, rhonchi, wheezes - Cardiovascular Cardiovascular exam: Present: RRR, +S1, +S2. Absent: diastolic murmur, gallop, rubs, systolic murmur - GI/Abdominal GI/Abdominal exam: Present: normal bowel sounds, soft, no peritoneal signs. Absent: distended, tenderness - Extremities Exam Extremities exam: Present: warm, radial pulses palpable and symmetrical. Absent : calf tenderness, cyanotic, pedal edema - Neurological Exam Neurological exam: Present: alert, CN II-XII intact, oriented X3, no focal deficits. Absent: pronater drift, facial droop, speech deficit - Skin Skin exam: Present: dry, intact Internal Medicine: Result - Labs CBC & Chem 7: 04/27/18 04:00 04/27/18 04:00 Labs: Short CBC 04/26/18 04/27/18 Range/Units 15:33 04:00 WBC 22.4 H 22.7 H (4.3-11.1) K/mcL Hgb 11.3 L 11.0 L (12.9-16.9) g/dL Hct 35.6 L 34.5 L (37.5-50.1) % Plt Count 282 287 (140-400) K/mcL Neutrophils # 16.7 H (1.6-8.9) K/mcL BMP 04/27/18 04:00 Sodium 140 Potassium 5.4 H Chloride 102 Carbon Dioxide 32 H BUN 22 Creatinine 0.69 L Glucose 157 H Calcium 9.0 Liver Function 04/27/18 Range/Units 04:00 Total Bilirubin 0.2 L (0.3-1.0) mg/dL AST 11 L (13-39) Units/L ALT 15 (7-52) Units/L Alkaline Phosphatase 108 H (34-104) Units/L Albumin 3.3 L (3.5-5.7) g/dL Consult Discharge Plan - Plan Additional Instructions: Discussed with him the possibility taken antidepressant medications in the future targeting his depressive symptoms. He did not respond to that discussion. Acknowledged to him the practicality of his health issues and his inability to care for himself with all his medical issues contributing to his depression. He is not able to live independently on his own. He currently is not suicidal but does have history of depression with suicidal thoughts. Patient would benefit from treatment of his depression on a [facility] where they could address his medical issues and hopefully improve his quality of life, which would in turn potentially improve his mood. It is recommended that he remain on suicide precautions as a monitoring secondary to his fleeting thoughts of suicide, until such time as he can be discharged to an inpatient [facility] for further monitoring and treatment. Referrals: NONE,PCP [Primary Care Provider] -
[2018-04-27] MEDS: Insulin DETEMIR 100 UNIT/ML X5UNITS SQ SCH (23:09)
[2018-04-27] MEDS: levoFLOXacin 750 MG TABLET PO SCH (23:09)
[2018-04-28] MEDS: *HR* Heparin 5,000 UNIT/ML VIAL SQ SCH ×4 (00:14→20:57)
[2018-04-28] MEDS: Ipratropium/Albuterol Neb 3 ML IH SCH ×4 (04:46→21:49)
[2018-04-28 04:49] LABS: Basophils % 0.1 %; Eosinophils # 0.1 K/mcL (0.0-0.6); Eosinophils % 0.5 %; Hematocrit 33.6 % (37.5-50.1); Hemoglobin 10.7 g/dL (12.9-16.9); Immature Granulocytes % 1.7 % (0-4); Lymphocytes # 3.8 K/mcL (0.6-4.6); Mean Corpuscular HGB Conc 31.8 g/dL (31.6-35.5); Mean Corpuscular Hemoglobin 30.4 pg (28.0-33.3); Mean Corpuscular Volume 95.5 fL (83.0-100.0); Mean Platelet Volume 9.8 fL (9.4-12.4); Monocytes # 1.3 K/mcL (0.0-1.3); Monocytes % 6.7 %; Neutrophils # 13.3 K/mcL (1.6-8.9); Platelet Count 280 K/mcL (140-400); Red Blood Count 3.52 M/mcL (4.19-5.50); Red Cell Distribution Width 15.3 % (11.5-14.5)
[2018-04-28 05:09] LABS: Alanine Aminotransferase 15 Units/L (7-52); Albumin 3.2 g/dL (3.5-5.7); Albumin/Globulin Ratio 1.3 (1.1-2.2); Alkaline Phosphatase 105 Units/L (34-104); Aspartate Amino Transferase 10 Units/L (13-39); BUN/Creatinine Ratio 44 (6-26); Bilirubin,Total 0.3 mg/dL (0.3-1.0); Blood Urea Nitrogen 28 mg/dL (8-23); Calcium 8.9 mg/dL (8.6-10.3); Carbon Dioxide 31 mEq/L (23-29); Chloride 103 mEq/L (98-107); Globulin 2.5 g/dL (2.4-3.5); Glucose 128 mg/dL (70-105); Osmolality,Calculated 297 (280-300); Potassium 4.3 mEq/L (3.5-5.1); Sodium 140 mEq/L (136-145); Total Protein 5.7 g/dL (6.4-8.9); eGFR For African Americans > 60 (> 60); eGFR For Non-African Americans > 60 (> 60)
[2018-04-28] MEDS: Insulin LISPRO 300 UNITS/3 ML VIAL SQ SCH ×4 (09:45→20:39)
[2018-04-28] MEDS: Folic Acid 1 MG TABLET PO SCH (09:55)
[2018-04-28] MEDS: Aspirin Enteric Coated 81 MG Tablet PO SCH (09:55)
[2018-04-28] MEDS: *HR* OxyCODONE Immed Rel 5 MG TABLET PO PRN ×2 (09:55→20:57)
--- NOTE | 2018-04-28 10:36 | Internal Med Progress Note ---
Date of Encounter: 04/28/18 Time of Encounter: 10:34 - Assessment and plan (1) Acute and chronic respiratory failure with hypoxia Current Visit: Yes Status: Resolved Assessment and plan: Acute on chronic hypoxic respiratory failure secondary to dislodged tracheostomy , pneumonia and acute COPD exacerbation. Resolved Continue O2 at home dose with trach collar (2) COPD with acute exacerbation Current Visit: Yes Status: Resolved Assessment and plan: Completed course of levaquin, added 3 more days pending sputum culture Discontinue prednisone (3) DVT prophylaxis Current Visit: Yes Status: Acute Assessment and plan: heparin (4) Leukocytosis Current Visit: Yes Status: Acute Assessment and plan: mild, secondary to COPD, pneumonia. U Afebrile, no new symptoms Discontinued prednisone, continue to observe Qualifiers: Leukocytosis type: unspecified Qualified Code(s): D72.829 - Elevated white blood cell count, unspecified (5) Diabetes Current Visit: Yes Status: Chronic Assessment and plan: per hx. SSI. 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 Trach replaced in ED. Tracheoscopy performed at bedside on 04/20/18 per ENT; no stenosis or granulation tissue noted and there was notable posterior tracheal wall collapse and tracheomalacia within the airway which is likely the cause of his dyspnea. ENT recommended modified barium swallow to assess for aspiration which was negative. Adequately oxygenating with 3 L via trach mask. ENT signed off Continue current management (7) Suicidal ideation Current Visit: Yes Status: Resolved Assessment and plan: Apparently decannulated himself overnight on 04/20/18. Unclear if this was intentional or not. Continue one-to-one sitter. Psych eval noted, per SW, no facility is willing to take the patient Reconsulted psych 04/23, review noted, discontinue sitter (8) Healthcare associated bacterial pneumonia Current Visit: Yes Status: Acute Assessment and plan: chest CTA with moderate RLL airspace disease concerning for possible pneumonia. Initially treated for possible aspiration pneumonia with his trach the ostomy however evaluated by ENT who noted aspiration less likely with history of total laryngectomy. Modified barium swallow negative for aspiration. Completed course of levaquin initially, restarted 04/27 due to concerns for secretions Send sputum for culture - Time Spent With Patient Total time spent is greater than 50% in coordination of care (as documented) at patient's floor/unit and/or counseling patient: - Subjective Interval history: Seen and evaluated at bedside He has no new complains Per RN< some concern for aspiration during the night, patient is not anatomically able to aspirate. VFS as well as ENT review has ruled out aspiration. Speech therapy evaluation has been requested by the nighttime, followed recommendations. Due to disparity with antibiotics, we have resumed Levaquin yesterday 04/27, we will send secretions for culture. Admitting Sputum culture was negative. Patient is otherwise stable [facility]. - Constitutional Vitals: Temp Pulse Resp BP Pulse Ox 98 F 78 16 167/81 93 04/28/18 08:01 04/28/18 08:01 04/28/18 08:01 04/28/18 08:01 04/28/18 08:01 General appearance: Present: A&O X 3, pleasant, no acute distress - Head Head exam: Present: atraumatic, normocephalic - Eye Eye exam: Present: PERRL, conjuntiva pink, sclera anicteric Pupils: Present: PERRL - Neck Additional comments: trach, minimal secretions, no distress - Respiratory Respiratory exam: Present: CTAB. Absent: accessory muscle use, rales, rhonchi, wheezes - Cardiovascular Cardiovascular exam: Present: RRR, +S1, +S2. Absent: diastolic murmur, gallop, rubs, systolic murmur - GI/Abdominal GI/Abdominal exam: Present: normal bowel sounds, soft, no peritoneal signs. Absent: distended, tenderness - Extremities Exam Extremities exam: Present: warm, radial pulses palpable and symmetrical. Absent : calf tenderness, cyanotic, pedal edema - Neurological Exam Neurological exam: Present: alert, CN II-XII intact, oriented X3. Absent: no focal deficits, pronater drift, facial droop, speech deficit Additional comments: LUE weakness-chronic - Skin Skin exam: Present: dry, intact Internal Medicine: Result - Labs CBC & Chem 7: 04/28/18 04:00 04/28/18 04:00 Labs: Short CBC 04/28/18 Range/Units 04:00 WBC 18.8 H (4.3-11.1) K/mcL Hgb 10.7 L (12.9-16.9) g/dL Hct 33.6 L (37.5-50.1) % Plt Count 280 (140-400) K/mcL Neutrophils # 13.3 H (1.6-8.9) K/mcL BMP 04/28/18 04:00 Sodium 140 Potassium 4.3 Chloride 103 Carbon Dioxide 31 H BUN 28 H Creatinine 0.63 L Glucose 128 H Calcium 8.9 Liver Function 04/28/18 Range/Units 04:00 Total Bilirubin 0.3 (0.3-1.0) mg/dL AST 10 L (13-39) Units/L ALT 15 (7-52) Units/L Alkaline Phosphatase 105 H (34-104) Units/L Albumin 3.2 L (3.5-5.7) g/dL Consult Discharge Plan - Plan Additional Instructions: Discussed with him the possibility taken antidepressant medications in the future targeting his depressive symptoms. He did not respond to that discussion. Acknowledged to him the practicality of his health issues and his inability to care for himself with all his medical issues contributing to his depression. He is not able to live independently on his own. He currently is not suicidal but does have history of depression with suicidal thoughts. Patient would benefit from treatment of his depression on a [facility] where they could address his medical issues and hopefully improve his quality of life, which would in turn potentially improve his mood. It is recommended that he remain on suicide precautions as a monitoring secondary to his fleeting thoughts of suicide, until such time as he can be discharged to an inpatient [facility] for further monitoring and treatment. Referrals: NONE,PCP [Primary Care Provider] -
[2018-04-28] MEDS: *HR* HYDROcodone/Acet 5/325 mg TABLET PO PRN (15:24)
[2018-04-28] MEDS ORDERED: Ketorolac 30 MG/ML VIAL IVP ONE (19:32)
[2018-04-28] MEDS: Insulin DETEMIR 100 UNIT/ML X5UNITS SQ SCH (20:42)
[2018-04-28] MEDS: levoFLOXacin 750 MG TABLET PO SCH (20:57)
[2018-04-28] MEDS: Melatonin 3 MG TABLET PO PRN (20:57)
[2018-04-29] MEDS: Ipratropium/Albuterol Neb 3 ML IH SCH ×4 (03:56→21:48)
[2018-04-29 05:04] LABS: Basophils % 0.2 %; Eosinophils # 0.3 K/mcL (0.0-0.6); Eosinophils % 2.1 %; Hematocrit 35.3 % (37.5-50.1); Hemoglobin 11.2 g/dL (12.9-16.9); Immature Granulocytes % 1.1 % (0-4); Lymphocytes # 4.1 K/mcL (0.6-4.6); Lymphocytes % 26.2 %; Mean Corpuscular HGB Conc 31.7 g/dL (31.6-35.5); Mean Corpuscular Hemoglobin 30.4 pg (28.0-33.3); Mean Corpuscular Volume 95.9 fL (83.0-100.0); Mean Platelet Volume 9.7 fL (9.4-12.4); Monocytes # 1.1 K/mcL (0.0-1.3); Monocytes % 7.2 %; Neutrophils # 9.8 K/mcL (1.6-8.9); Platelet Count 269 K/mcL (140-400); Red Blood Count 3.68 M/mcL (4.19-5.50); Red Cell Distribution Width 15.3 % (11.5-14.5); Segmented Neutrophils % 63.2 %
[2018-04-29] MEDS: *HR* Heparin 5,000 UNIT/ML VIAL SQ SCH ×3 (05:18→23:06)
[2018-04-29] MEDS: *HR* HYDROcodone/Acet 5/325 mg TABLET PO PRN ×3 (05:18→23:05)
[2018-04-29 05:24] LABS: Alanine Aminotransferase 19 Units/L (7-52); Albumin 3.2 g/dL (3.5-5.7); Albumin/Globulin Ratio 1.3 (1.1-2.2); Alkaline Phosphatase 116 Units/L (34-104); Aspartate Amino Transferase 15 Units/L (13-39); BUN/Creatinine Ratio 28 (6-26); Bilirubin,Total 0.3 mg/dL (0.3-1.0); Blood Urea Nitrogen 21 mg/dL (8-23); Calcium 8.8 mg/dL (8.6-10.3); Carbon Dioxide 31 mEq/L (23-29); Chloride 104 mEq/L (98-107); Globulin 2.5 g/dL (2.4-3.5); Glucose 111 mg/dL (70-105); Osmolality,Calculated 296 (280-300); Potassium 4.5 mEq/L (3.5-5.1); Sodium 141 mEq/L (136-145); Total Protein 5.7 g/dL (6.4-8.9); eGFR For African Americans > 60 (> 60); eGFR For Non-African Americans > 60 (> 60)
[2018-04-29] MEDS: Insulin LISPRO 300 UNITS/3 ML VIAL SQ SCH ×4 (10:28→23:07)
[2018-04-29] MEDS: Aspirin Enteric Coated 81 MG Tablet PO SCH (10:34)
[2018-04-29] MEDS: *HR* OxyCODONE Immed Rel 5 MG TABLET PO PRN (10:34)
[2018-04-29] MEDS: Folic Acid 1 MG TABLET PO SCH (10:34)
--- NOTE | 2018-04-29 12:21 | Internal Med Progress Note ---
Date of Encounter: 04/29/18 Time of Encounter: 09:00 - Assessment and plan (1) Acute and chronic respiratory failure with hypoxia Current Visit: Yes Status: Resolved Assessment and plan: Acute on chronic hypoxic respiratory failure secondary to dislodged tracheostomy , pneumonia and acute COPD exacerbation. Resolved Continue O2 at home dose with trach collar (2) COPD with acute exacerbation Current Visit: Yes Status: Resolved Assessment and plan: Completed course of levaquin, follow repeat pending sputum culture Discontinue prednisone (3) DVT prophylaxis Current Visit: Yes Status: Acute Assessment and plan: heparin (4) Leukocytosis Current Visit: Yes Status: Acute Assessment and plan: mild, secondary to COPD, pneumonia. Improving Afebrile, no new symptoms Discontinued prednisone, continue to observe Qualifiers: Leukocytosis type: unspecified Qualified Code(s): D72.829 - Elevated white blood cell count, unspecified (5) Diabetes Current Visit: Yes Status: Chronic Assessment and plan: per hx. SSI. 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 Trach replaced in ED. Tracheoscopy performed at bedside on 04/20/18 per ENT; no stenosis or granulation tissue noted and there was notable posterior tracheal wall collapse and tracheomalacia within the airway which is likely the cause of his dyspnea. ENT recommended modified barium swallow to assess for aspiration which was negative. Adequately oxygenating with 3 L via trach mask. ENT signed off Continue current management (7) Suicidal ideation Current Visit: Yes Status: Resolved Assessment and plan: Apparently decannulated himself overnight on 04/20/18. Unclear if this was intentional or not. Continue one-to-one sitter. Psych eval noted, per , no facility is willing to take the patient Reconsulted psych 04/23, review noted, discontinue sitter Again reconsulted psych per [facility] request per , Dr. velazquez will see the patient today (8) Healthcare associated bacterial pneumonia Current Visit: Yes Status: Acute Assessment and plan: chest CTA with moderate RLL airspace disease concerning for possible pneumonia. Initially treated for possible aspiration pneumonia with his trach the ostomy however evaluated by ENT who noted aspiration less likely with history of total laryngectomy. Modified barium swallow negative for aspiration. Completed course of levaquin initially, restarted 04/27 due to concerns for secretions Follow repeat sputum for culture - Time Spent With Patient Total time spent is greater than 50% in coordination of care (as documented) at patient's floor/unit and/or counseling patient: - Subjective Interval history: Seen and evaluated at bedside He has no new complains Per RN< some concern for aspiration during the night, patient is not anatomically able to aspirate. VFS as well as ENT review has ruled out aspiration. Speech therapy evaluation has been requested by the nighttime, followed recommendations. Due to disparity with antibiotics, we have resumed Levaquin yesterday 04/27, we will send secretions for culture. Admitting Sputum culture was negative. Patient is otherwise stable to be discharged to longterm facility when accepted. Per SW this a.m, [facility] has requested new psych eval, Dr. velazquez consulted, patient is otherwise stable, will stop checking labs for now - Constitutional Vitals: Temp Pulse Resp BP Pulse Ox 98.3 F 96 16 114/76 96 04/29/18 07:07 04/29/18 07:07 04/29/18 10:46 04/29/18 07:07 04/29/18 10:46 General appearance: Present: A&O X 3, pleasant, no acute distress - Head Head exam: Present: atraumatic, normocephalic - Eye Eye exam: Present: PERRL, conjuntiva pink, sclera anicteric Pupils: Present: PERRL - ENT ENT exam: Present: mucous membranes moist - Neck Additional comments: trach - Respiratory Respiratory exam: Present: CTAB (anteriro auscultation). Absent: accessory muscle use, rales, rhonchi, wheezes - Cardiovascular Cardiovascular exam: Present: RRR, +S1, +S2. Absent: diastolic murmur, gallop, rubs, systolic murmur - GI/Abdominal GI/Abdominal exam: Present: normal bowel sounds, soft, no peritoneal signs. Absent: distended, tenderness - Extremities Exam Extremities exam: Present: warm, radial pulses palpable and symmetrical. Absent : calf tenderness, cyanotic, pedal edema - Neurological Exam Neurological exam: Present: alert, CN II-XII intact, oriented X3. Absent: no focal deficits, pronater drift, facial droop, speech deficit Additional comments: LUE weakness - Skin Skin exam: Present: dry Internal Medicine: Result - Labs CBC & Chem 7: 04/29/18 04:46 04/29/18 04:46 Labs: Short CBC 04/29/18 Range/Units 04:46 WBC 15.5 H (4.3-11.1) K/mcL Hgb 11.2 L (12.9-16.9) g/dL Hct 35.3 L (37.5-50.1) % Plt Count 269 (140-400) K/mcL Neutrophils # 9.8 H (1.6-8.9) K/mcL BMP 04/29/18 04:46 Sodium 141 Potassium 4.5 Chloride 104 Carbon Dioxide 31 H BUN 21 Creatinine 0.74 Glucose 111 H Calcium 8.8 Liver Function 04/29/18 Range/Units 04:46 Total Bilirubin 0.3 (0.3-1.0) mg/dL AST 15 (13-39) Units/L ALT 19 (7-52) Units/L Alkaline Phosphatase 116 H (34-104) Units/L Albumin 3.2 L (3.5-5.7) g/dL Consult Discharge Plan - Plan Additional Instructions: Discussed with him the possibility taken antidepressant medications in the future targeting his depressive symptoms. He did not respond to that discussion. Acknowledged to him the practicality of his health issues and his inability to care for himself with all his medical issues contributing to his depression. He is not able to live independently on his own. He currently is not suicidal but does have history of depression with suicidal thoughts. Patient would benefit from treatment of his depression on a [facility] where they could address his medical issues and hopefully improve his quality of life, which would in turn potentially improve his mood. It is recommended that he remain on suicide precautions as a monitoring secondary to his fleeting thoughts of suicide, until such time as he can be discharged to an inpatient [facility] for further monitoring and treatment. Referrals: NONE,PCP [Primary Care Provider] -
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
[2018-04-29] MEDS: Insulin DETEMIR 100 UNIT/ML X5UNITS SQ SCH (23:06)
[2018-04-29] MEDS: Melatonin 3 MG TABLET PO PRN (23:06)
[2018-04-29] MEDS: levoFLOXacin 750 MG TABLET PO SCH (23:06)
[2018-04-30] MEDS: Ipratropium/Albuterol Neb 3 ML IH SCH ×2 (04:37→10:23)
[2018-04-30] MEDS: *HR* Heparin 5,000 UNIT/ML VIAL SQ SCH (05:13)
[2018-04-30] MEDS: *HR* HYDROcodone/Acet 5/325 mg TABLET PO PRN (05:13)
[2018-04-30 07:27] VITALS: BP 121/76
[2018-04-30] MEDS: Folic Acid 1 MG TABLET PO SCH (07:44)
[2018-04-30] MEDS: Aspirin Enteric Coated 81 MG Tablet PO SCH (07:44)
[2018-04-30] MEDS: Insulin LISPRO 300 UNITS/3 ML VIAL SQ SCH ×2 (07:45→12:16)
[2018-04-30] MEDS ORDERED: Doxycycline 100 MG CAPSULE PO SCH (09:00)
[2018-04-30] MEDS: *HR* OxyCODONE Immed Rel 5 MG TABLET PO PRN (10:05)
--- NOTE | 2018-04-30 10:29 | Discharge Summary ---
- NOTES TO OUTPATIENT PROVIDER Notes to Outpatient Provider: With MD at [facility]. Sputum culture with GPC and GNR, however, patient is stable on current antibiotics, we will call in if need to change antibiotics, patient is hemodynamically stable Orders not resulted at time of discharge: Pending orders 04/20/18 20:21 Culture,Sputum with Gram Stain [RM] Stat 04/21/18 17:31 XR esophagram/ barium swallow [XR] Routine 05/01/18 04:00 Chem 7 [Basic Metabolic Panel] AM 0400 Complete Blood Count [HEME] AM 0400 Date of Encounter: 04/30/18 Time of Encounter: 10:27 - Discharge Diagnosis (1) Acute and chronic respiratory failure with hypoxia Priority: Primary Status: Resolved (2) COPD with acute exacerbation Priority: Primary Status: Resolved (3) DVT prophylaxis Priority: Secondary Status: Resolved (4) Leukocytosis Priority: Secondary Status: Acute Qualifiers: Leukocytosis type: unspecified Qualified Code(s): D72.829 - Elevated white blood cell count, unspecified (5) Diabetes Priority: Secondary Status: Chronic Qualifiers: Diabetes mellitus type: type 2 Diabetes mellitus assisted insulin use: with rat exterminator use Diabetes mellitus complication status: without complication Qualified Code(s): E11.9 - Type 2 diabetes mellitus without complications; Z79.4 - terminal manager (current) use of insulin (6) Tracheomalacia Priority: Primary Status: Acute (7) Suicidal ideation Priority: Primary Status: Ruled-out (8) Healthcare associated bacterial pneumonia Priority: Primary Status: Acute Hospital course: Mr. 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 There was suspicion for aspiration pneumonia on admission. The patient also had leukocytosis on admission. On admission and nose and throat surgery was consulted and performed a tracheoscopy at the bedside on 04/20/18 and there was no stenosis of granulation tissue, there was no terrible posterior tracheal wall prolapse and tracheomalacia within the airway. Modified barium swallow recommended by a resident with was negative. In the central signs normal studies without any intervention. Multiple chest imaging ruled out aspiration PNA. The patient has been hemodynamically and clinically stable, however, he began to have increased secretions from his trach which was cultured, currently growing gram-negative rods and gram-positive cocci. All cultures and pending patient has completed 7 days of Levaquin by mouth, started on doxycycline today 04/30 pending final cultures report. There was a report of suicidal ideation [facility] from the [facility], psychiatry has seen the patient 3 times and has cleared him to be discharged back to the nursing facility. The patient is seen and evaluated this morning at the bedside, he has no new complaints, he is oxygenating well at his home dose of oxygen by trach collar, he is clinically and hemodynamically stable to be transferred back to the long-term facility. Renal function is stable, leukocytosis is downtrending. His sputum culture reports is noted and not finalized, however, I plan to call the [facility] should there be a need for change in antibiotics. Plan of care discussed with the patient who verbalized understanding. Discharge discussed with: patient, nurse, social work, case management - Time Spent with Patient Total time spent providing and/or coordinating discharge services: Greater than 30 minutes - Discharge Medications Prescriptions: OxyCODONE Immed Rel [Roxicodone 10 MG] 10 mg PO Q8H PRN 3 Days #9 tablet PRN Reason: Severe Pain Home Medications: Aspirin [Lo-Dose Aspirin EC] 81 mg PO DAILY 04/14/18 [History] Citalopram Hydrobromide [Citalopram HBr] 10 mg PO DAILY 04/14/18 [History] Famotidine [Pepcid] 20 mg PO BID 04/14/18 [History] Folic Acid 1 mg PO DAILY 04/14/18 [History] Furosemide [Lasix] 40 mg PO DAILY 04/14/18 [History] Glucagon,Human Recombinant [Glucagen] 1 mg IJ ONCE PRN 04/14/18 [History] Guaifenesin [Diabetic Tussin Ex] 10 ml PO Q4H PRN 04/14/18 [History] Insulin Glargine,Hum.rec.anlog [Basaglar Kwikpen U-100] 5 unit SQ HS 04/14/18 [ History] Insulin Human Regular [HumuLIN R] 0 unit SQ TIDWM 04/14/18 [History] Lisinopril [Zestril] 20 mg PO DAILY 04/14/18 [History] Methyl Salicylate/Menthol [Salonpas Patch] 1 each TP Q12H 04/14/18 [History] Omeprazole [PriLOSEC] 40 mg PO DAILY 04/14/18 [History] Sennosides [Senna] 8.6 mg PO DAILY 04/14/18 [History] Simvastatin [Zocor] 20 mg PO 1800 04/14/18 [History] Tamsulosin [Flomax] 0.4 mg PO DAILY 04/14/18 [History] Acetaminophen [Tylenol] 650 mg PO Q4HR PRN tablet 04/30/18 [Rx] Doxycycline 100 mg PO BID capsule 04/30/18 [Rx] Melatonin 3 mg PO HS PRN tablet 04/30/18 [Rx] OxyCODONE Immed Rel [Roxicodone 10 MG] 10 mg PO Q8H PRN 3 Days #9 tablet [Rx] Allergies/Adverse Reactions: 3 Allergy/AdvReac Type Severity Reaction Status Date / Time ampicillin [From Unasyn] Allergy See Verified 01/31/18 00:27 Comments sulbactam [From Unasyn] Allergy See Verified 01/31/18 00:27 Comments Date of admission: 04/19/18 15:33 Primary care physician: PCP NONE Consults: 04/19/18 16:58 Consult to Pastoral Services [CONS] Routine Comment: 04/19/18 19:50 Consult to Radiological Technician [CONS] Routine Reason for SW Consult: Per patient request. Patient reports that he is not changed when he is incontinent at [facility]. Patient admitted for ripping out his trach tube, has a history of brain cancer, possibly confusion. 04/20/18 19:34 Consult to Psychiatry [CONS] Routine Consulting Provider: Psychiatry [facility] Reason for Consult: Patient expressing thoughts of self-harm and suicidal ideations. Sitter ordered. Suicide precautions ordered. Call Completed: Yes 04/24/18 07:55 Consult to Psychiatry [CONS] Routine Consulting Provider: Psychiatry [place] Reason for Consult: Patient with suicidal ideation, SW states difficulty placing in [facility], kindly re-evaluate , thank you. Call Completed: Yes 04/26/18 12:55 Consult to Invasive Line Access Team [CONS] Routine Reason for Consult: need for IV antibiotics wbc 22.6 lactic 2.0 infection looking sputum coming form the trach Line Type: EPIV PICC line indications: Limited vascular access 04/26/18 15:17 PICC Consult [Consult to Invasive Line Access Team] [CONS] Routine Reason for Consult: lactic acid increase Line Type: EPIV 04/27/18 23:07 Consult to Speech Therapy [CONS] Routine Comment: Evaluate, develop and implement POC Reason for Consult: patient has been choking on drinks and food to wear patient was vomitting, and becoming very red faced. orders for speech consult to be placed and strict NPO Call Completed: No 04/29/18 08:25 Consult to Psychiatry [CONS] Routine Consulting Provider: Psychiatry Ja[facility] Reason consult: Other Other reason and/or additional details: Suicidal ideation Call Completed: Yes Discharging clinician: Bowen Toure Anticipated date of discharge: 04/30/18 - Constitutional Vitals: Temp Pulse Resp BP Pulse Ox 97.8 F 73 18 121/76 94 04/30/18 07:25 04/30/18 07:25 04/30/18 07:25 04/30/18 07:25 04/30/18 07:25 General appearance: Present: A&O X 3, pleasant, no acute distress - Head Head exam: Present: atraumatic, normocephalic - Eye Eye exam: Present: PERRL, conjuntiva pink, sclera anicteric Pupils: Present: PERRL - Neck Neck exam general surgery: Present: supple, trachea midline. Absent: lymphadenopathy Additional comments: trached, with trach collar, no visible secretions - Respiratory Respiratory exam: Present: CTAB. Absent: accessory muscle use, rales, rhonchi, wheezes - Cardiovascular Cardiovascular exam: Present: RRR, +S1, +S2. Absent: diastolic murmur, gallop, rubs, systolic murmur - GI/Abdominal GI/Abdominal exam: Present: normal bowel sounds, soft, no peritoneal signs. Absent: distended, tenderness - Extremities Exam Extremities exam: Present: warm, radial pulses palpable and symmetrical. Absent : calf tenderness, cyanotic, pedal edema - Neurological Exam Neurological exam: Present: alert, CN II-XII intact, oriented X3. Absent: no focal deficits, pronater drift, facial droop, speech deficit Additional comments: LUE weakness, chronic - Skin Skin exam: Present: dry, intact - Patient Status Disposition: Transfer SNF Condition: Fair Functional capacity at discharge: bed bound Overall status at discharge: patient is progressing back to baseline - Discharge Instructions Follow Up With: NONE,PCP [Primary Care Provider] - Additional Instructions: Discussed with him the possibility taken antidepressant medications in the future targeting his depressive symptoms. He did not respond to that discussion. Acknowledged to him the practicality of his health issues and his inability to care for himself with all his medical issues contributing to his depression. He is not able to live independently on his own. He currently is not suicidal but does have history of depression with suicidal thoughts. Patient would benefit from treatment of his depression on a [facility] unit where they could address his medical issues and hopefully improve his quality of life, which would in turn potentially improve his mood. It is recommended that he remain on suicide precautions as a monitoring secondary to his fleeting thoughts of suicide, until such time as he can be discharged to an inpatient [facility] unit for further monitoring and treatment. - Diet and Activity Activity: resume usual activities as tolerated, wear oxygen at night Diet: low salt diet, other (advanced soft diet, chopped meat)
== END 2018-04-30 13:48 ==
LOC: 2NENU 11:06 → EMEROO 11:06 → SUATTDRO 15:33 → 2NENU 16:05
PROVIDERS: ADMIT Internal Medicine Hematology & Oncology; ATTEND Internal Medicine

== ENCOUNTER 2018-09-01 17:37 | Observation (INO) ==
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
[2018-09-01 18:17] LABS: Basophils # 0.1 K/mcL (0.0-0.2); Basophils % 0.4 %; Eosinophils # 0.6 K/mcL (0.0-0.6); Eosinophils % 3.1 %; Hemoglobin 11.7 g/dL (12.9-16.9); Immature Granulocytes % 0.5 % (0-4); Lymphocytes # 5.7 K/mcL (0.6-4.6); Lymphocytes % 31.2 %; Mean Corpuscular HGB Conc 30.8 g/dL (31.6-35.5); Mean Corpuscular Hemoglobin 29.9 pg (28.0-33.3); Mean Corpuscular Volume 97.2 fL (83.0-100.0); Mean Platelet Volume 9.7 fL (9.4-12.4); Monocytes # 1.1 K/mcL (0.0-1.3); Neutrophils # 10.7 K/mcL (1.6-8.9); Platelet Count 300 K/mcL (140-400); Red Blood Count 3.91 M/mcL (4.19-5.50); Segmented Neutrophils % 58.8 %
[2018-09-01 18:22] LABS: VBG HCO3 27 mEq/L (21-27); VBG PCO2 82 mmHg (41-51); VBG PH 7.12 pH Units (7.32-7.42); VBG PO2 141 mmHg (25-50)
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
[2018-09-01 18:31] LABS: INR 1.1; Prothrombin Time 12.4 Seconds (9.4-12.1)
[2018-09-01 18:44] LABS: Troponin I < 0.03 ng/mL (< 0.04)
[2018-09-01 18:45] LABS: Alanine Aminotransferase 11 Units/L (7-52); Albumin 4.1 g/dL (3.5-5.7); Albumin/Globulin Ratio 1.2 (1.1-2.2); Alkaline Phosphatase 76 Units/L (34-104); Aspartate Amino Transferase 14 Units/L (13-39); BUN/Creatinine Ratio 25 (6-26); Bilirubin,Total 0.3 mg/dL (0.3-1.0); Blood Urea Nitrogen 26 mg/dL (8-23); Calcium 9.3 mg/dL (8.6-10.3); Carbon Dioxide 24 mEq/L (23-29); Chloride 105 mEq/L (98-107); Globulin 3.5 g/dL (2.4-3.5); Glucose 186 mg/dL (70-105); Magnesium 1.9 mg/dL (1.6-2.6); Osmolality,Calculated 296 (280-300); Potassium 4.9 mEq/L (3.5-5.1); Sodium 138 mEq/L (136-145); Total Protein 7.6 g/dL (6.4-8.9); eGFR For Non-African Americans > 60 (> 60)
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
[2018-09-01] MEDS ORDERED: Naloxone 0.4 MG/ML INJ IVP PRN (21:01)
[2018-09-01] MEDS ORDERED: Dextrose Gel 15 GM/37.5 ML TUBE PO PRN ×2 (21:14)
[2018-09-01] MEDS ORDERED: *HR* Dextrose 50 % in Water (Syg) 50 ML SYRINGE IVP PRN (21:14)
[2018-09-01] MEDS ORDERED: D5% in Water 1,000 ML IVC PRN (21:14)
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
[2018-09-01 22:54] LABS: ABG Base Excess 4 mEq/L (-2 to 3); ABG HCO3 31 mEq/L (21-27); ABG Oxygen Saturation 98 % (95-98); ABG PCO2 59 mmHg (35-45); ABG PH 7.33 pH Units (7.32-7.45); ABG PO2 109 mmHg (85-104); ABG TCO2 33 mEq/L (20-26)
[2018-09-01] MEDS: *HR* Heparin 5,000 UNIT/ML VIAL SQ SCH (22:59)
[2018-09-01] MEDS: Meropenem 1,000 MG in Water for inj. (sterile) 20 ML 10 ML IVPB SCH (23:34)
[2018-09-01] MEDS: Insulin LISPRO 300 UNITS/3 ML VIAL SQ SCH (23:36)
[2018-09-01] MEDS: Ipratropium/Albuterol Neb 3 ML IH SCH (23:54)
[2018-09-02] MEDS: Ipratropium/Albuterol Neb 3 ML IH SCH ×5 (07:42→20:04)
[2018-09-02 11:26] LABS: Basophils % 0.3 %; Eosinophils # 0.5 K/mcL (0.0-0.6); Hematocrit 37.6 % (37.5-50.1); Hemoglobin 11.8 g/dL (12.9-16.9); Immature Granulocytes % 0.7 % (0-4); Immature Platelets 3.3 % (1.1-6.1); Lymphocytes # 4.8 K/mcL (0.6-4.6); Lymphocytes % 37.2 %; Mean Corpuscular HGB Conc 31.4 g/dL (31.6-35.5); Mean Corpuscular Hemoglobin 29.9 pg (28.0-33.3); Mean Corpuscular Volume 95.4 fL (83.0-100.0); Mean Platelet Volume 10.1 fL (9.4-12.4); Monocytes # 1.1 K/mcL (0.0-1.3); Monocytes % 8.1 %; Neutrophils # 6.4 K/mcL (1.6-8.9); Platelet Count 298 K/mcL (140-400); Red Blood Count 3.94 M/mcL (4.19-5.50); Red Cell Distribution Width 12.9 % (11.5-14.5); Segmented Neutrophils % 49.7 %
[2018-09-02 12:23] LABS: BUN/Creatinine Ratio 26 (6-26); Blood Urea Nitrogen 25 mg/dL (8-23); Calcium 9.6 mg/dL (8.6-10.3); Carbon Dioxide 24 mEq/L (23-29); Chloride 107 mEq/L (98-107); Glucose 123 mg/dL (70-105); Osmolality,Calculated 300 (280-300); Potassium 4.1 mEq/L (3.5-5.1); Sodium 142 mEq/L (136-145); eGFR For Non-African Americans > 60 (> 60)
--- NOTE | 2018-09-02 13:32 | Electrocardiograph Report ---
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
[2018-09-02] MEDS: Meropenem 1,000 MG in Water for inj. (sterile) 20 ML 10 ML IVPB SCH ×2 (13:43→16:26)
[2018-09-02] MEDS: Insulin LISPRO 300 UNITS/3 ML VIAL SQ SCH ×3 (13:43→19:11)
[2018-09-02] MEDS: *HR* Heparin 5,000 UNIT/ML VIAL SQ SCH ×3 (13:43→21:07)
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
--- NOTE | 2018-09-02 15:52 | Psychiatry Progress Note ---
Date of Encounter: 09/02/18 Time of Encounter: 15:20 Subjective Interval history: Psychiatric consultation note: 63 years old male with multiple medical problems including tracheostomy admitted for evaluation treatment of airway obstruction. Psychiatric consultation requested to evaluate possible suicidal behavior, patient is putting objects into his trach. Patient was seen in a psychiatric consultation on 05/03/2018 to evaluate the same was diagnosed with mood disorder due to medical condition. Currently patient is on antidepressant citalopram. He denies suicidal ideation and has no history of suicide attempts. He is very difficult to interview due to his ability to communicate. At this time patient is not presenting any evidence of suicidal ideation or behavior, he is on antidepressant. Medical management with his condition should continue to stabilize him before discharge to custodial. We will sign off on this consult. Thank you Results - Vital Signs Vital Signs: Temp Pulse Resp BP Pulse Ox 98.7 F 76 18 117/67 95 09/02/18 15:23 09/02/18 15:23 09/02/18 15:23 09/02/18 15:23 09/02/18 15:23 - Labs Labs: Laboratory Results - last 24 hr 09/01/18 09/01/18 09/01/18 17:48 17:48 17:48 WBC 18.2 H RBC 3.91 L Hgb 11.7 L Hct 38.0 MCV 97.2 MCH 29.9 MCHC 30.8 L RDW 13.0 Plt Count 300 MPV 9.7 Immature Gran % 0.5 Seg Neutrophils % 58.8 Lymphocytes % 31.2 Monocytes % 6.0 Eosinophils % 3.1 Basophils % 0.4 Neutrophils # 10.7 H Lymphocytes # 5.7 H Monocytes # 1.1 Eosinophils # 0.6 Basophils # 0.1 Immature Plt Fraction PT 12.4 H INR 1.1 Sample Site ABG pH ABG pCO2 ABG pO2 ABG HCO3 ABG Total CO2 ABG O2 Saturation ABG Base Excess Kirit Test VBG pH VBG pCO2 VBG pO2 VBG HCO3 O2 Delivery Device Inspired O2 Sodium 138 Potassium 4.9 Chloride 105 Carbon Dioxide 24 BUN 26 H Creatinine 1.03 Est GFR ( Amer) > 60 Est GFR (Non-Af Amer) > 60 BUN/Creatinine Ratio 25 Glucose 186 H POC Glucose Calculated Osmolality 296 Calcium 9.3 Magnesium 1.9 Total Bilirubin 0.3 AST 14 ALT 11 Alkaline Phosphatase 76 Troponin I < 0.03 Serum Total Protein 7.6 Albumin 4.1 Globulin 3.5 Albumin/Globulin Ratio 1.2 Person Notif of Crit 09/01/18 09/01/18 09/01/18 18:16 22:43 23:28 WBC RBC Hgb Hct MCV MCH MCHC RDW Plt Count MPV Immature Gran % Seg Neutrophils % Lymphocytes % Monocytes % Eosinophils % Basophils % Neutrophils # Lymphocytes # Monocytes # Eosinophils # Basophils # Immature Plt Fraction PT INR Sample Site R Radial ABG pH 7.33 ABG pCO2 59 H ABG pO2 109 H ABG HCO3 31 H ABG Total CO2 33 H ABG O2 Saturation 98 ABG Base Excess 4 H Kirit Test Positive VBG pH 7.12 L* VBG pCO2 82 H* VBG pO2 141 H VBG HCO3 27 O2 Delivery Device Venti Mask Inspired O2 35.0 Sodium Potassium Chloride Carbon Dioxide BUN Creatinine Est GFR ( Amer) Est GFR (Non-Af Amer) BUN/Creatinine Ratio Glucose POC Glucose 102 H Calculated Osmolality Calcium Magnesium Total Bilirubin AST ALT Alkaline Phosphatase Troponin I Serum Total Protein Albumin Globulin Albumin/Globulin Ratio Person Notif of Crit STACY ANDERSON 09/02/18 09/02/18 09/02/18 04:22 04:22 05:36 WBC 13.0 H RBC 3.94 L Hgb 11.8 L Hct 37.6 MCV 95.4 MCH 29.9 MCHC 31.4 L RDW 12.9 Plt Count 298 MPV 10.1 Immature Gran % 0.7 Seg Neutrophils % 49.7 Lymphocytes % 37.2 Monocytes % 8.1 Eosinophils % 4.0 Basophils % 0.3 Neutrophils # 6.4 Lymphocytes # 4.8 H Monocytes # 1.1 Eosinophils # 0.5 Basophils # 0.0 Immature Plt Fraction 3.3 PT INR Sample Site ABG pH ABG pCO2 ABG pO2 ABG HCO3 ABG Total CO2 ABG O2 Saturation ABG Base Excess Kirit Test VBG pH VBG pCO2 VBG pO2 VBG HCO3 O2 Delivery Device Inspired O2 Sodium 142 Potassium 4.1 Chloride 107 Carbon Dioxide 24 BUN 25 H Creatinine 0.95 Est GFR ( Amer) > 60 Est GFR (Non-Af Amer) > 60 BUN/Creatinine Ratio 26 Glucose 123 H POC Glucose 136 H Calculated Osmolality 300 Calcium 9.6 Magnesium Total Bilirubin AST ALT Alkaline Phosphatase Troponin I Serum Total Protein Albumin Globulin Albumin/Globulin Ratio Person Notif of Crit - Impressions ITS Impressions Chest X-Ray 09/01/18 17:46 IMPRESSION: Mild pulmonary vascular congestion. D/ / Lucho Waters MD / Lucho Waters MD Interpreting Provider: Lucho Waters MD Chest CT 09/01/18 18:08 IMPRESSION: Filling defect is seen in the trachea,, with foci of gas internally, superior to the enmanuel. This is new compared to prior, and may represent secretions. This soft tissue density measures 2.7 cm craniocaudal. Tracheostomy tube is again seen. The airway is narrowed superior to the tracheostomy, similar to prior. Increased airspace disease at the lung bases bilaterally, left greater than right, likely pneumonia D/ / Bobby Dsouza MD / Bobby Dsouza MD Interpreting Provider: Bobby Dsouza MD Assessment and Plan (1) Mood disorder secondary to multiple medical problems Current visit: No Status: Resolved Additional Plan: 1. Continue medical management to stabilize patient condition 2. Continue treatment with antidepressant 3. When patient medically stable he can be discharged back to his custodial We will sign off on this consultation. Thank you Consult Discharge Plan - Plan Referrals: NONE,PCP [Primary Care Provider] - Psychiatry Exam - Constitutional Vitals: Temp Pulse Resp BP Pulse Ox 98.7 F 76 18 117/67 95 09/02/18 15:23 09/02/18 15:23 09/02/18 15:23 09/02/18 15:23 09/02/18 15:23 General appearance: age & developmentally appropriate, well-nourished, unkempt, disheveled, obese - Musculoskeletal Gait: normal Station: relaxed Strength & Tone: normal for patient - Psychiatric Patient Orientation: Yes Person Level of alertness: Sedated Behavior: calm, cooperative, guarded, withdrawn Psychomotor activity: Slowed Eye Contact: Minimal Contact Mood Description: Euthymic/stable, Depressed Affect description: congruent with mood, blunted, flat Speech Volume: No speech Speech pattern: non-verbal Language & Vocabulary: aphasia Thought Process: Linear, Goal Oriented, Slowed Thinking Thought Content: No Suicidal ideation, No Homicidal ideation, No Overt delusions Perceptual Disturbances: No Auditory hallucinations, No Visual hallucinations Attention Span Ability: Capable of Focused Attention Memory Description: Grossly Intact Patient Reliability: Not Reliable Historian Fund of knowledge: Yes abstraction ability, Yes aware of current events Intelligence Estimate: Average Judgment: Limited Insight: Partial
--- NOTE | 2018-09-02 17:50 | Discharge Summary ---
Orders not resulted at time of discharge: Pending orders 09/01/18 18:22 Culture,Blood [BC] Stat 09/02/18 16:38 MRSA Surveillance Screen [MOLMIC] Routine 09/03/18 04:00 Basic Metabolic Panel AM 0400 Complete Blood Count [HEME] AM 0400 09/03/18 10:00 Vancomycin,Trough Timed Date of Encounter: 09/02/18 Time of Encounter: 17:49 Hospital course: Mr. Patricio is a 63 year old male sent with a history of laryngeal cancer, face and neck and upper chest taylor status post tracheostomy who was brought in from [facility] for hypoxia with concern for foreign body in his tracheal stoma. This was initially removed by EMS en route here and then he was evaluated in the ER. The ER examined him with ENT fiberoptic scope and did not find any upper airway obstruction. He underwent CT of the chest which showed possible increased secretions in his lower trachea with narrowing of the trachea above his tracheal stoma. Pulmonology was consulted and they recommended transferring the patient to tertiary care Center where the patient underwent surgery because of his anatomy. I called [facility] and they kindly accepted the patient for transfer. Patient will be transferred once he has a bed available there. Discharge discussed with: patient, portfolio consultant - Time Spent with Patient Total time spent providing and/or coordinating discharge services: Greater than 30 minutes (40 min) - Discharge Medications Home Medications: Aspirin [Lo-Dose Aspirin EC] 81 mg PO DAILY 04/14/18 [History] Famotidine [Pepcid] 20 mg PO BID 04/14/18 [History] Folic Acid 1 mg PO DAILY 04/14/18 [History] Furosemide [Lasix] 40 mg PO DAILY 04/14/18 [History] Glucagon,Human Recombinant [Glucagen] 1 mg IJ ONCE PRN 04/14/18 [History] Guaifenesin [Diabetic Tussin Ex] 10 ml PO Q4H PRN 04/14/18 [History] Lisinopril [Zestril] 20 mg PO DAILY 04/14/18 [History] Omeprazole [PriLOSEC] 40 mg PO DAILY 04/14/18 [History] Simvastatin [Zocor] 20 mg PO 1800 04/14/18 [History] Tamsulosin [Flomax] 0.4 mg PO DAILY 04/14/18 [History] Acetaminophen [Tylenol] 650 mg PO Q4HR PRN tablet 04/30/18 [Rx] Melatonin 3 mg PO HS PRN tablet 04/30/18 [Rx] OxyCODONE Immed Rel [Roxicodone 10 MG] 10 mg PO Q8H PRN 3 Days #9 tablet 04/30/18 [Rx] ALPRAZolam [Xanax 0.25 MG Tablet] 0.25 mg PO HS PRN 09/02/18 [History] HydrOXYzine Pamoate [Vistaril] 50 mg PO HS 09/02/18 [History] Sertraline [Zoloft] 150 mg PO DAILY 09/02/18 [History] Allergies/Adverse Reactions: Allergy/AdvReac Type Severity Reaction Status Date / Time ampicillin [From Unasyn] Allergy See Verified 01/31/18 00:27 Comments sulbactam [From Unasyn] Allergy See Verified 01/31/18 00:27 Comments Date of admission: 09/01/18 20:28 Primary care physician: PCP NONE Consults: 09/01/18 19:39 Consult to Pulmonology [CONS] Stat Consulting Provider: [facility] Reason for Consult: trach malfunction, lower airway narrowing; hx of foreign body in trach Call Completed: Yes 09/01/18 22:00 Consult to Psychiatry [CONS] Routine Consulting Provider: Psychiatry Jaqui Reason consult: Other Other reason and/or additional details: patient is shoving foreign objects down his tracheostomy. Denies suicidal ideation. Would like him to have a psych assessment. Call Completed: No 09/02/18 16:08 Consult to ENT [CONS] Routine Consulting Provider: [facility] [place] Reason for Consult: Narrowing above tracheostomy per CT Time Notified: 16:08 Call Completed: Yes - Constitutional Vitals: Temp Pulse Resp BP Pulse Ox 98.0 F 83 18 107/58 92 09/02/18 17:02 09/02/18 17:02 09/02/18 17:02 09/02/18 17:02 09/02/18 17:02 General appearance: Present: cooperative, A&O X 3, pleasant, answers questions appropriately Exam: . - ENT Additional comments: Tracheostomy in place. Trach collar in place. - Respiratory Respiratory exam: Present: prolonged expiratory phase, wheezes. Absent: accessory muscle use, rales, rhonchi - Cardiovascular Cardiovascular exam: Present: RRR, +S1, +S2. Absent: diastolic murmur, gallop, rubs, systolic murmur - Patient Status Disposition: Transfer Short-Term Hosp Condition: Good - Discharge Instructions Follow Up With: NONE,PCP [Primary Care Provider] -
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
[2018-09-02 19:19] VITALS: BP 130/70
[2018-09-02] MEDS ORDERED: *HR* Water for inj. (Sterile) 20 ML VIAL IV ONE (22:13)
[2018-09-02] MEDS ORDERED: Ipratropium/Albuterol Neb 3 ML IH ONE ×3 (22:13)
[2018-09-02] MEDS ORDERED: Aminoglycoside Consult 1 EACH MC ONE (22:13)
[2018-09-02] MEDS ORDERED: *HR* Heparin 5,000 UNIT/ML VIAL IVP ONE (22:13)
== END 2018-09-02 22:14 | disposition short-term general hospital (02) ==
LOC: EMEROOARM 17:37 → SUATTDRO 20:28 → 2NNU 20:28 → INTOOBSV 20:28 → 2NNU 21:18
PROVIDERS: ADMIT Family Medicine; ATTEND Internal Medicine